=== PATIENT | male | born 1945 | race Caucasian/White ===

== ENCOUNTER → 2018-06-23 | Outpatient (CLI) | payer MEDICARE, OTHER ==
[2018-06-23 16:24] LABS: Basophils % (A) 1 %; Eosinophils # (A) 0.2 k/uL (0-0.7); Eosinophils % (A) 3 %; HCT 46.8 % (39.0-53.0); HGB 15.3 gm/dL (13.0-17.5); Lymphocytes # (A) 1.2 k/uL (1.0-4.8); Lymphocytes % (A) 20 %; MCH 31.8 pg (25.0-35.0); MCHC 32.7 g/dL (31.0-37.0); MCV 97.2 fL (80.0-100.0); Mean Platelet Volume 8.1; Monocytes # (A) 0.4 k/uL (0-1.0); Monocytes % (A) 7 %; Neutrophils % (A) 68 %; Platelet Count 165 k/uL (150-450); RBC 4.81 m/uL (4.30-5.90); RDW 13.2 % (11.5-15.5); WBC 5.9 k/uL (3.8-10.6)
[2018-06-23 16:35] LABS: Potassium 4.7 mmol/L (3.5-5.1)
== END | disposition home or self-care (01) ==
LOC: LABWHC1 15:36
PROVIDERS: ATTEND Urology
DX: Z01.818 Encounter for other preprocedural examination (principal); I10 Essential (primary) hypertension; N40.1 Benign prostatic hyperplasia with lower urinary tract symptoms; E78.00 Pure hypercholesterolemia, unspecified
CPT/HCPCS: 36415; 80048; 85025; 87086

== ENCOUNTER → 2018-06-30 | Day surgery (SDC) | payer MEDICARE, OTHER ==
[2018-06-24 09:29] VITALS: BMI 30.8
--- NOTE | 2018-06-25 08:19 | P.GSHP ---
History of Present Illness H&P Date: 06/25/18 Chief Complaint: Voiding symptoms The patient is a 73-year-old white male with obstructive voiding symptoms despite taking finasteride, alfuzosin, and Toviaz. Cystoscopy has shown complete obstruction due to lateral lobe enlargement with a high median bar. He has elected to undergo a TURP and comes for this reason. - Cardiovascular Cardiovascular: Reports high blood pressure, Denies chest pain - Genitourinary (Female) Genitourinary: Reports nocturia, Reports urgency, Reports urinary frequency Past Medical History Past Medical History: Diabetes Mellitus, GERD/Reflux, Hyperlipidemia, Hypertension, Myocardial Infarction ([place]), Osteoarthritis (OA) Additional Past Medical History / Comment(s): hx. h pylori, type 2 diabetic- diet controlled Last Myocardial Infarction Date:: 2012 History of Any Multi-Drug Resistant Organisms: C-DIFF Date of last positivie culture/infection: 2015 MDRO Source:: stomach Past Surgical History: Coronary Bypass/CABG, Heart Catheterization, Joint Replacement Additional Past Surgical History / Comment(s): triple bypass 2012, right hip replaced, cataracts removed, eye surg. as kid Past Anesthesia/Blood Transfusion Reactions: No Reported Reaction Smoking Status: Never smoker - Past Family History Brother(s) Family Medical History: Cancer Additional Family Medical History / Comment(s): melanoma Medications and Allergies Home Medications Medication Instructions Recorded Confirmed Type Alfuzosin HCl [Uroxatral ER] 10 mg PO DAILY 06/24/18 06/24/18 History Aspirin 81 mg PO DAILY 06/24/18 06/24/18 History Atorvastatin [Lipitor] 80 mg PO DAILY 06/24/18 06/24/18 History Docusate Sodium [Dok] 100 mg PO DAILY 06/24/18 06/24/18 History Fesoterodine Fumarate [Toviaz] 8 mg PO DAILY 06/24/18 06/24/18 History Finasteride [Proscar] 5 mg PO DAILY 06/24/18 06/24/18 History L.acidoph,Paracasei, B.lactis 1 each PO DAILY 06/24/18 06/24/18 History [Probiotic] Meloxicam [Mobic] 15 mg PO DAILY 06/24/18 06/24/18 History Metoprolol Tartrate [Lopressor] 25 mg PO BID 06/24/18 06/24/18 History Multivitamin [Men's Multi-Vitamin] 1 each PO DAILY 06/24/18 06/24/18 History Niacin [Niacin ER] 500 mg PO HS 06/24/18 06/24/18 History Nitroglycerin Sl Tabs [Nitrostat] 0.4 mg SUBLINGUAL Q5M PRN 06/24/18 06/24/18 History Pantoprazole Sodium [Protonix] 40 mg PO DAILY 06/24/18 06/24/18 History Valsartan [Diovan] 100 mg PO DAILY 06/24/18 06/24/18 History Allergies Allergy/AdvReac Type Severity Reaction Status Date / Time No Known Allergies Allergy Verified 06/24/18 08:09 Surgical - Exam - General well developed, well nourished, no distress - Neck no masses, trachea midline - Respiratory normal respiratory effort, clear to auscultation - Cardiovascular Rhythm: regular Abnormal Heart Sounds: no systolic murmur, no diastolic murmur, no rub, no S3 Gallop, no S4 Gallop, no click, no other - Abdomen Abdomen: soft, non tender, no guarding, no rigid, no rebound - Genitourinary normal penis with no external lesions, testicles non-tender - Psychiatric oriented to time, oriented to person, oriented to place, speech is normal, memory intact Assessment and Plan (1) Benign prostatic hyperplasia with lower urinary tract symptoms Status: Acute Code(s): N40.1 - BENIGN PROSTATIC HYPERPLASIA WITH LOWER URINARY TRACT SYMP SNOMED Code(s): 866258299 Plan: PATIENT: [] DATE: [] Cystoscopy, TURP: I discussed the options concerning surgery versus medication. I advised him regarding TURP as opposed to minimally invasive procedures such as Urolift. Potential risks were discussed, including anesthesia, bleeding, infection, retrograde ejaculation, incontinence, erectile dysfunction, and vesical neck contracture. It is anticipated that he will be discharged home following the procedure, though overnight hospitalization may be required.
[~2018-06-30] MED LIST: DEXAMETHASONE SOD PHOSPHATE 10 MG/ML 1 ML VIAL IV ONE; HYDROcodone/APAP 5-325MG 1 EACH TAB PO ONE; HYDROmorphone 0.5 MG/0.5 ML SYRINGE IVP PRN; LACTATED RINGERS 1,000 ML IV SCH; LIDOCAINE 1% 20 ML VIAL (10MG/ML) FOR IV START INTRADERMA ONE; LIDOCAINE 1% INJ 10MG/ML (20 ML MDV) ONE; MIDAZOLAM 2 MG/2 ML VIAL ONE; ONDANSETRON 4 MG/2 ML VIAL IVP ONE; PHENYLEPHRINE-0.9% NACL SYG 1 MG/10 ML SYRINGE ONE; PROPOFOL 10 MG/ML 20 ML VIAL IV ONE; ROCURONIUM BROMIDE 10 MG/ML 10 ML VIAL IV ONE; SUCCINYLCHOLINE CHLORIDE 100 MG/5 ML SYR IV ONE; ceFAZolin IN SWFI 2 GM/20 ML SYRINGE IVP ONE; ePHEDrine SULFATE/0.9% NACL/PF 50 MG/5 ML SYRINGE IV ONE; fentaNYL (PF) 50 MCG/ML 2 ML AMP ONE
[2018-06-30 08:21] LABS: Glucose,Whole Blood 106 mg/dL (75-99)
[2018-06-30 11:17] VITALS: TEMP 97
--- NOTE | 2018-06-30 11:18 | P.OP ---
Date of Procedure: 06/30/18 Preoperative Diagnosis: BPH with Obstruction Postoperative Diagnosis: Same Procedure(s) Performed: Cystoscopy, Bipolar Transurethral Resection of Prostate (TURP) Anesthesia: TWIN Surgeon: Alek Ace Estimated Blood Loss (ml): 100 IV fluids (ml): 700 Pathology: other (prostate chips) Condition: stable Disposition: PACU Indications for Procedure: The patient is a 73-year-old white male with obstructive voiding symptoms despite taking finasteride, alfuzosin, and Toviaz. Cystoscopy has shown complete obstruction due to lateral lobe enlargement with a high median bar. He has elected to undergo a TURP and comes for this reason. Operative Findings: Bilobar BPH Description of Procedure: The patient was taken in the operating room and placed in the dorsolithotomy position. The external genitalia was prepped and draped sterilely. The 25- [place] A[employer] resectoscope sheath was introduced into the bladder. The bladder was inspected. Both ureteral orifices were of normal anatomic location and configuration, and clear urine effluxed from both. No tumors or foreign bodies were seen. Examination of the prostate revealed complete obstruction with a bilobar configuration and a high median bar. Using the bipolar cutting loop, the median lobe was resected, and the vesical neck was incised at the 6:00 position. Llateral lobes were resected down to the surgical capsule. The floor of the prostate was then resected, proximal to the verumontanum. Lastly, any remaining anterior tissue was resected. The remaining apical tissue was then carefully resected. The apical tissue extended beyond the verumontanum, but the resection was not extended beyond the verumontanum. The resection was carried down to the surgical capsule in all 4 quadrants. The prostatic fossa was then carefully examined, and any areas of bleeding were controlled with electrocautery. Excellent hemostasis was attained. The resectoscope was withdrawn into the bulbous urethra. The external urinary sphincter remained intact. The prostatic fossa was open. These were saved and sent for pathologic examination. The resectoscope was removed, and a 20 Bh[place] Campbell catheter was placed. The return was essentially clear. The patient tolerated the procedure well was taken to the recovery room in stable condition.
[2018-06-30 11:46] LABS: Glucose,Whole Blood 141 mg/dL (75-99)
[2018-06-30 12:13] VITALS: RESP 18
[2018-06-30 13:34] VITALS: BP 158/88; PULSE 76
== END | disposition home or self-care (01) ==
LOC: OR 07:44
PROVIDERS: ATTEND Urology
DX: N40.1 Benign prostatic hyperplasia with lower urinary tract symptoms (principal); N13.8 Other obstructive and reflux uropathy; R35.0 Frequency of micturition; R35.1 Nocturia; R39.15 Urgency of urination; E11.9 Type 2 diabetes mellitus without complications; K21.9 Gastro-esophageal reflux disease without esophagitis; I10 Essential (primary) hypertension; M19.90 Unspecified osteoarthritis, unspecified site; I25.10 Atherosclerotic heart disease of native coronary artery without angina pectoris; E78.00 Pure hypercholesterolemia, unspecified; I25.2 Old myocardial infarction; Z95.1 Presence of aortocoronary bypass graft; Z96.641 Presence of right artificial hip joint; Z79.1 Long term (current) use of non-steroidal anti-inflammatories (NSAID); Z79.82 Long term (current) use of aspirin; Z79.899 Other long term (current) drug therapy; Z86.19 Personal history of other infectious and parasitic diseases
CPT/HCPCS: 88305; 52601; J2250; J1100; J2405; J2001; J3010; J2370; J0330; J2704; J0690

== ENCOUNTER → 2018-11-21 | Outpatient (CLI) | payer MEDICARE, OTHER ==
[2018-11-21 15:50] LABS: Basophils # (A) 0.1 k/uL (0-0.2); Basophils % (A) 1 %; Eosinophils # (A) 0.3 k/uL (0-0.7); Eosinophils % (A) 4 %; HCT 50.7 % (39.0-53.0); HGB 16.4 gm/dL (13.0-17.5); Lymphocytes # (A) 1.5 k/uL (1.0-4.8); Lymphocytes % (A) 22 %; MCH 31.9 pg (25.0-35.0); MCHC 32.4 g/dL (31.0-37.0); MCV 98.6 fL (80.0-100.0); Mean Platelet Volume 8.2; Monocytes # (A) 0.5 k/uL (0-1.0); Monocytes % (A) 8 %; Neutrophils # (A) 4.1 k/uL (1.3-7.7); Neutrophils % (A) 61 %; Platelet Count 177 k/uL (150-450); RBC 5.14 m/uL (4.30-5.90); RDW 12.9 % (11.5-15.5); WBC 6.6 k/uL (3.8-10.6)
[2018-11-21 16:02] LABS: ALT 32 U/L (21-72); AST 33 U/L (17-59); Albumin 4.1 g/dL (3.5-5.0); Alkaline Phosphatase 67 U/L (38-126); Anion Gap 7 mmol/L; Blood Urea Nitrogen 24 mg/dL (9-20); Calcium 9.2 mg/dL (8.4-10.2); Carbon Dioxide 34 mmol/L (22-30); Chloride 101 mmol/L (98-107); Glucose 95 mg/dL (74-99); Potassium 4.9 mmol/L (3.5-5.1); Sodium 142 mmol/L (137-145); Total Bilirubin 0.6 mg/dL (0.2-1.3); Total Protein 7.5 g/dL (6.3-8.2)
== END | disposition home or self-care (01) ==
LOC: LABPAT 15:04
PROVIDERS: ATTEND Urology
DX: Z01.812 Encounter for preprocedural laboratory examination (principal); N35.011 Post-traumatic bulbous urethral stricture; Z79.899 Other long term (current) drug therapy
CPT/HCPCS: 80053; 85025

== ENCOUNTER 2018-11-24 06:25 | Day surgery (SDC) | payer MEDICARE, OTHER ==
--- NOTE | 2018-11-22 12:05 | P.GSHP ---
History of Present Illness H&P Date: 11/22/18 Chief Complaint: Weak urinary stream The patient is a 73-year-old white male who underwent a TURP in June 2018. His urinary stream improved and he was able to discontinue taking finasteride and alfuzosin. However, his stream has recently weakened, and cystoscopy shows a bulbous urethral stricture. The stricture could only be dilated to 10-Moroc[place] , and he thus comes for a direct visual internal ureterotomy (DVIU). - Constitutional Constitutional: Denies chills, Denies fever - Genitourinary (Male) Genitourinary: Denies dysuria, Denies hematuria Past Medical History Past Medical History: Diabetes Mellitus, Hyperlipidemia, Hypertension, Myocardial Infarction ([place]), Osteoarthritis (OA), Prostate Disorder Additional Past Medical History / Comment(s): irregular heart rate. diet controlled type II diabetic. balance issues uses cane for mobility Last Myocardial Infarction Date:: 2012 History of Any Multi-Drug Resistant Organisms: None Reported Past Surgical History: Coronary Bypass/CABG, Joint Replacement, Prostate Surgery Additional Past Surgical History / Comment(s): triple bypass 2012, TURP 06/2018 , samuel cataracts, rt hip replacement Past Anesthesia/Blood Transfusion Reactions: No Reported Reaction Smoking Status: Never smoker - Past Family History Mother Family Medical History: Cancer Additional Family Medical History / Comment(s): thyroid cancer Brother(s) Family Medical History: Cancer Additional Family Medical History / Comment(s): skin cancer Medications and Allergies Home Medications Medication Instructions Recorded Confirmed Type Aspirin 81 mg PO DAILY 06/24/18 11/22/18 History Atorvastatin [Lipitor] 80 mg PO HS 06/24/18 11/22/18 History Docusate Sodium [Dok] 100 mg PO DAILY 06/24/18 11/22/18 History Finasteride [Proscar] 5 mg PO DAILY 06/24/18 11/22/18 History L.acidoph,Paracasei, B.lactis 1 each PO DAILY 06/24/18 11/22/18 History [Probiotic] Meloxicam [Mobic] 15 mg PO DAILY 06/24/18 11/22/18 History Metoprolol Tartrate [Lopressor] 25 mg PO BID 06/24/18 11/22/18 History Multivitamin [Men's Multi-Vitamin] 1 each PO DAILY 06/24/18 11/22/18 History Niacin [Niacin ER] 500 mg PO HS 06/24/18 11/22/18 History Nitroglycerin Sl Tabs [Nitrostat] 0.4 mg SUBLINGUAL Q5M PRN 06/24/18 11/22/18 History Pantoprazole Sodium [Protonix] 40 mg PO DAILY 06/24/18 11/22/18 History Valsartan [Diovan] 160 mg PO HS 06/24/18 11/22/18 History Allergy Relief 1 tab PO DAILY 11/22/18 11/22/18 History Ciprofloxacin HCl [Cipro] 500 mg PO Q12HR 11/22/18 11/22/18 History Allergies Allergy/AdvReac Type Severity Reaction Status Date / Time No Known Allergies Allergy Verified 11/22/18 10:40 Surgical - Exam - General well developed, well nourished, no distress - Respiratory normal respiratory effort - Abdomen Abdomen: soft, non tender, no guarding, no rigid, no rebound - Genitourinary normal penis with no external lesions, testicles non-tender - Psychiatric oriented to time, oriented to person, oriented to place, speech is normal, memory intact Assessment and Plan (1) Traumatic bulbous urethral stricture Status: Acute Code(s): N35.011 - POST-TRAUMATIC BULBOUS URETHRAL STRICTURE SNOMED Code(s): 888840646739629 Plan: Cystoscopy, DVIU. The procedure has been reviewed in detail with the patient and his . Potential risks include anesthesia, bleeding, infection, and recurrent stricture.
[~2018-11-24 06:25] MED LIST changes: -DEXAMETHASONE SOD PHOSPHATE 10 MG/ML 1 ML VIAL IV ONE; +GENTAMICIN IN NACL ISO-OSM PMX 80 MG in SALINE 1 100ML.BAG IVPB ONE; -HYDROcodone/APAP 5-325MG 1 EACH TAB PO ONE; -HYDROmorphone 0.5 MG/0.5 ML SYRINGE IVP PRN; -LIDOCAINE 1% 20 ML VIAL (10MG/ML) FOR IV START INTRADERMA ONE; -LIDOCAINE 1% INJ 10MG/ML (20 ML MDV) ONE; -MIDAZOLAM 2 MG/2 ML VIAL ONE; -ONDANSETRON 4 MG/2 ML VIAL IVP ONE; -PHENYLEPHRINE-0.9% NACL SYG 1 MG/10 ML SYRINGE ONE; -PROPOFOL 10 MG/ML 20 ML VIAL IV ONE; -ROCURONIUM BROMIDE 10 MG/ML 10 ML VIAL IV ONE; -SUCCINYLCHOLINE CHLORIDE 100 MG/5 ML SYR IV ONE; -ePHEDrine SULFATE/0.9% NACL/PF 50 MG/5 ML SYRINGE IV ONE; -fentaNYL (PF) 50 MCG/ML 2 ML AMP ONE
[2018-11-24 07:04] VITALS: TEMP 97.1
[2018-11-24] MEDS ORDERED: PHENYLEPHRINE-0.9% NACL SYG 1 MG/10 ML SYRINGE ONE (07:35)
[2018-11-24] MEDS ORDERED: MIDAZOLAM 2 MG/2 ML VIAL ONE (07:35)
[2018-11-24] MEDS ORDERED: fentaNYL (PF) 50 MCG/ML 2 ML AMP ONE (07:35)
[2018-11-24] MEDS ORDERED: LIDOCAINE 1% INJ 10MG/ML (20 ML MDV) ONE (07:35)
[2018-11-24] MEDS ORDERED: PROPOFOL 10 MG/ML 20 ML VIAL IV ONE (07:35)
[2018-11-24] MEDS ORDERED: ePHEDrine SULFATE/0.9% NACL/PF 50 MG/5 ML SYRINGE IV ONE (07:35)
--- NOTE | 2018-11-24 08:29 | P.OP ---
Date of Procedure: 11/24/18 Preoperative Diagnosis: Urethral stricture Postoperative Diagnosis: Urethral stricture, vesical neck contracture Procedure(s) Performed: Cystoscopy, direct visual internal urethrotomy (DVIU), transurethral incision of vesical neck contracture (TUI-VNC) Anesthesia: TWIN Surgeon: Alek Ace Estimated Blood Loss (ml): 5 IV fluids (ml): 300 Pathology: none sent Condition: stable Disposition: PACU Indications for Procedure: The patient is a 73-year-old white male who underwent a TURP in June 2018. His urinary stream improved and he was able to discontinue taking finasteride and alfuzosin. However, his stream has recently weakened, and cystoscopy shows a bulbous urethral stricture. The stricture could only be dilated to 10-Tamazight , and he thus comes for a direct visual internal ureterotomy (DVIU). Operative Findings: Bulbous urethral stricture. Wide caliber vesical neck contracture. Description of Procedure: The patient was taken to the operating room and placed in the dorsolithotomy position, with his legs supported in Wally stirrups. The external genitalia was prepped and draped sterilely. The 0 lens was used to advance the visual urethrotome into the urethra. A stricture was encountered within the bulbous urethra, measuring approximately 10 [place] in caliber. The length of the stricture was approximately 1 cm. Using the half-chavez blade, the stricture was incised at the 12 o'clock position. The incision was carried through the full- thickness of the stricture. It was then possible to advance the visual urethrotome into the bladder. Examination of the prostate revealed a well resected prostatic fossa. There was minimal residual tissue on the right, which was non-obstructing. A wide caliber vesical neck contracture was noted, through which the visual urethrotome could not be advanced. Therefore, this was incised at the 12 o'clock position, allowing passage of the visual urethrotome into the bladder. The bladder was inspected. Both ureteral orifices were of normal anatomic location and configuration, and clear urine effluxed from both. No tumors or foreign bodies were seen. Trabeculation of the bladder was noted. The cystoscope was removed, and an 18-Tamazight Campbell catheter was placed. The return was clear. The patient tolerated the procedure well was taken to the recovery room in stable condition.
[2018-11-24] MEDS ORDERED: IV FLUID CONTINUATION 1,000 ML IV ONE (08:32)
[2018-11-24 08:52] LABS: Glucose,Whole Blood 105 mg/dL (75-99)
[2018-11-24 09:01] VITALS: RESP 16
[2018-11-24 09:13] VITALS: BP 162/91; PULSE 57
== END 2018-11-24 10:20 | disposition home or self-care (01) ==
LOC: OR 06:25
PROVIDERS: ATTEND Urology
DX: N32.0 Bladder-neck obstruction (principal); N35.912 Unspecified bulbous urethral stricture, male; I25.10 Atherosclerotic heart disease of native coronary artery without angina pectoris; I25.2 Old myocardial infarction; I10 Essential (primary) hypertension; E78.5 Hyperlipidemia, unspecified; E11.9 Type 2 diabetes mellitus without complications; M19.90 Unspecified osteoarthritis, unspecified site; Z98.890 Other specified postprocedural states; Z79.2 Long term (current) use of antibiotics; Z79.1 Long term (current) use of non-steroidal anti-inflammatories (NSAID); Z79.82 Long term (current) use of aspirin; Z79.899 Other long term (current) drug therapy; Z95.1 Presence of aortocoronary bypass graft
CPT/HCPCS: 52276; J1580; J2250; J2001; J3010; J2370; J2704; J0690

== ENCOUNTER 2020-01-23 13:55 | Day surgery (SDC) | payer MEDICARE, OTHER ==
[2020-01-22 13:51] VITALS: BMI 29.7
[2020-01-23 14:29] VITALS: BP 83/53; PULSE 56; RESP 18; TEMP 97.5
[2020-01-23 14:33] LABS: Glucose,Whole Blood 95 mg/dL (75-99)
[2020-01-23] MEDS ORDERED: LIDOCAINE 1% INJ 10MG/ML (20 ML MDV) SQ ONE (14:51)
[2020-01-23 16:12] LABS: Basophils # (A) 0.1 k/uL (0-0.2); Basophils % (A) 0 %; Eosinophils # (A) 0.1 k/uL (0-0.7); Eosinophils % (A) 1 %; HCT 46.3 % (39.0-53.0); HGB 15.5 gm/dL (13.0-17.5); Lymphocytes # (A) 0.7 k/uL (1.0-4.8); Lymphocytes % (A) 6 %; MCH 32.8 pg (25.0-35.0); MCHC 33.6 g/dL (31.0-37.0); MCV 97.7 fL (80.0-100.0); Mean Platelet Volume 8.5; Monocytes # (A) 0.4 k/uL (0-1.0); Monocytes % (A) 4 %; Neutrophils # (A) 10.3 k/uL (1.3-7.7); Neutrophils % (A) 88 %; Platelet Count 391 k/uL (150-450); RBC 4.73 m/uL (4.30-5.90); RDW 12.3 % (11.5-15.5); WBC 11.7 k/uL (3.8-10.6)
[2020-01-23 16:19] LABS: Calcium 9.8 mg/dL (8.4-10.2)
[2020-01-23 16:32] LABS: Potassium 6.7 mmol/L (3.5-5.1)
--- NOTE | 2020-01-24 09:23 | IR ---
EXAMINATION TYPE: IR cvc insert >=5 years DATE OF EXAM: 01/23/2020 COMPARISON: NONE CLINICAL HISTORY: Infection Needs long-term intravenous access for antibiotics. PROCEDURE: Hand hygiene obtained with soap and water and alcohol-based hand rub. After informed consent, the skin overlying the left basilic vein was localized with ultrasound and no bernardo to be compressible and patent. An ultrasound image was obtained and submitted on the patient's c painting. The overlying skin was prepped and draped and Lidocaine was used for local anesthesia. A skin sheela was made with a scalpel. Access was gained to the vein under ultrasound guidance with a 21 gau ge needle and a 0.018 inch wire was advanced. Access site was dilated with Peel-Away sheath and cath eter tailored to the appropriate length and advanced such that the distal tip is at the cavoatrial ju nction. Spot image was obtained verifying placement. Catheter was fixed to the skin and a sterile d ressing was placed following hemostasis. Catheter was aspirated and flushed with saline. Patient wa s discharged in stable condition without complication. Maximal barrier technique is utilized. Ultras ound image is documented on the chart. Ultrasound used with sterile technique. Fluoro time and fluoroscopic images submitted to document procedure: 23 intraoperative images documen t the procedure, 0.4 minutes fluoroscopy time IMPRESSION: STATUS POST ULTRASOUND AND FLUOROSCOPIC GUIDED PICC LINE PLACEMENT, READY FOR USE. THIS PROCEDURE WAS PERFORMED BY THE UNDERSIGNED.
== END 2020-01-23 15:37 | disposition home or self-care (01) ==
LOC: CATHCVL 13:55
PROVIDERS: ATTEND Radiology Diagnostic Radiology
DX: T84.54XA Infection and inflammatory reaction due to internal left knee prosthesis, initial encounter (principal); Z96.652 Presence of left artificial knee joint
CPT/HCPCS: 80048; 85025; 36573; J2001

== ENCOUNTER 2020-05-14 11:29 | Day surgery (SDC) | payer MEDICARE, OTHER ==
[2020-05-13 10:30] VITALS: BMI 26.6
[2020-05-14 12:42] VITALS: BP 130/74; RESP 18; TEMP 98.7
[2020-05-14] MEDS ORDERED: LIDOCAINE 1% INJ 10MG/ML (20 ML MDV) ONE (13:11)
[2020-05-14] MEDS ORDERED: LIDOCAINE 1% INJ 10MG/ML (20 ML MDV) SQ ONE (13:27)
--- NOTE | 2020-05-14 16:13 | IR ---
EXAMINATION TYPE: IR cvc insert >=5 years DATE OF EXAM: 05/14/2020 COMPARISON: NONE CLINICAL HISTORY: Infection Needs long-term intravenous access for antibiotics. PROCEDURE: Hand hygiene obtained with soap and water and alcohol-based hand rub. After informed consent, the skin overlying the left basilic vein was localized with ultrasound and no bernardo to be compressible and patent. An ultrasound image was obtained and submitted on the patient's c painting. The overlying skin was prepped and draped and Lidocaine was used for local anesthesia. A skin sheela was made with a scalpel. Access was gained to the vein under ultrasound guidance with a 21 gau ge needle and a 0.018 inch wire was advanced. Access site was dilated with Peel-Away sheath and cath eter tailored to the appropriate length and advanced such that the distal tip is at the cavoatrial ju nction. Spot image was obtained verifying placement. Catheter was fixed to the skin and a sterile d ressing was placed following hemostasis. Catheter was aspirated and flushed with saline. Patient wa s discharged in stable condition without complication. Maximal barrier technique is utilized. Ultras ound image is documented on the chart. Ultrasound used with sterile technique. Fluoro time and fluoroscopic images submitted to document procedure: 13 intraoperative images, 0.1 mi nutes fluoroscopy time IMPRESSION: STATUS POST ULTRASOUND AND FLUOROSCOPIC GUIDED PICC LINE PLACEMENT, READY FOR USE. THIS PROCEDURE WAS PERFORMED BY THE UNDERSIGNED.
== END 2020-05-14 14:10 | disposition home or self-care (01) ==
LOC: CATHCVL 11:29
PROVIDERS: ATTEND Radiology Diagnostic Radiology
DX: T84.54XA Infection and inflammatory reaction due to internal left knee prosthesis, initial encounter (principal); Z98.890 Other specified postprocedural states
CPT/HCPCS: 36573; C1751; C1769; J2001

== ENCOUNTER 2020-07-03 13:50 | Day surgery (SDC) | payer MEDICARE, OTHER ==
--- NOTE | 2020-07-03 16:11 | IR ---
PICC line exchange HISTORY: PICC line pulled out Informed consent undertaken. Patient's indwelling PICC line was prepped and draped. Lidocaine was use d for local anesthesia. Catheter was cut subsequently cannulated with a 0.018 inch wire. Catheter was removed. Peel-away sheath was advanced. Catheter was tailored to length and advanced such that the t ip is at the cavoatrial junction. Catheter was fixed to the skin. Catheter was aspirated and flushed. Hemostasis achieved. No immediate consultation. Patient remained in stable condition. Spot images ob tained verifying placement. 0.3 minutes fluoroscopy time. 118 intraoperative images obtained. IMPRESSION: Status post PICC line exchange. This procedure performed by the undersigned.
== END 2020-07-03 16:00 | disposition home or self-care (01) ==
LOC: CATHCVL 13:50
PROVIDERS: ATTEND Radiology Diagnostic Radiology
DX: T82.524A Displacement of infusion catheter, initial encounter (principal); T84.54XA Infection and inflammatory reaction due to internal left knee prosthesis, initial encounter; M00.9 Pyogenic arthritis, unspecified; I11.9 Hypertensive heart disease without heart failure; E11.9 Type 2 diabetes mellitus without complications; M19.90 Unspecified osteoarthritis, unspecified site; E78.5 Hyperlipidemia, unspecified; Z79.82 Long term (current) use of aspirin; Z79.899 Other long term (current) drug therapy
CPT/HCPCS: 36573; 71045; C1751; C1769

== ENCOUNTER → 2020-07-03 | Outpatient (CLI) | payer MEDICARE, OTHER ==
--- NOTE | 2020-07-03 14:48 | XR ---
EXAMINATION TYPE: XR chest 1V DATE OF EXAM: 07/03/2020 COMPARISON: Chest x-ray April 03, 2013. HISTORY: PICC line placement. TECHNIQUE: Single frontal view of the chest is obtained. FINDINGS: There is some chronic parenchymal change without suspicious new focal air space opacity, p leural effusion, or pneumothorax seen. Overlying sternal wires and mediastinal clips redemonstrated . Low lung volumes redemonstrated. The cardiac silhouette size is now enlarged. Degenerative change bi lateral glenohumeral joints noted. PICC line not identified. IMPRESSION: As above.
== END | disposition home or self-care (01) ==
LOC: RADXRMAIN 14:12
PROVIDERS: ATTEND Internal Medicine Infectious Disease
DX: M19.011 Primary osteoarthritis, right shoulder (principal); M19.012 Primary osteoarthritis, left shoulder
CPT/HCPCS: 71045

== ENCOUNTER 2022-10-27 00:46 | Inpatient (IN) | payer MEDICARE, OTHER ==
[2022-10-27] MEDS ORDERED: SODIUM CHLORIDE 0.9% 1,000 ML IV ONE (01:02)
[2022-10-27] MEDS ORDERED: SODIUM CHLORIDE 0.9% 1,000 ML IV SCH (01:15)
--- NOTE | 2022-10-27 01:44 | US ---
EXAMINATION TYPE: US gallbladder DATE OF EXAM: 10/27/2022 COMPARISON: NONE CLINICAL HISTORY: pain. pain off and on TECHNIQUE: Multiple sonographic images of the right upper quadrant are obtained. Entire exam done intercostal FINDINGS: EXAM MEASUREMENTS: Liver Length: 12.0 cm Gallbladder Wall: 0.18 cm CBD: 0.59 cm Right Kidney: 10.9 x 5.7 x 5.7 cm CORPORATE DEVELOPMENT ANALYST NOTES: Pancreas: Obscured by bowel gas Liver: wnl Gallbladder: Possible gallstones visualized in neck of GB Evidence for sonographic James's sign: No CBD: wnl Right Kidney: Cyst visualized in sup/mid pole measuring 2.1 x 1.8 x 1.7cm IMPRESSION: There is some echogenic bile in the dependent gallbladder that could be sludge and small gallstones. No dilated ducts. No discrete liver mass. No hydronephrosis seen of the right kidney. There is cortic al cyst upper pole. No discrete liver mass.
[2022-10-27 03:10] LABS: Basophils # (A) 0.1 k/uL (0-0.2); Basophils % (A) 0 %; Eosinophils # (A) 0.1 k/uL (0-0.7); Eosinophils % (A) 0 %; HCT 46.3 % (39.0-53.0); HGB 15.6 gm/dL (13.0-17.5); Lymphocytes # (A) 0.5 k/uL (1.0-4.8); Lymphocytes % (A) 3 %; MCH 32.2 pg (25.0-35.0); MCHC 33.6 g/dL (31.0-37.0); MCV 95.8 fL (80.0-100.0); Mean Platelet Volume 9.6; Monocytes # (A) 1.1 k/uL (0-1.0); Monocytes % (A) 7 %; Neutrophils # (A) 15.4 k/uL (1.3-7.7); Neutrophils % (A) 89 %; Platelet Count 154 k/uL (150-450); RBC 4.83 m/uL (4.30-5.90); RDW 13.1 % (11.5-15.5); WBC 17.3 k/uL (3.8-10.6)
[2022-10-27 03:26] LABS: Albumin 3.8 g/dL (3.5-5.0); Calcium 8.8 mg/dL (8.4-10.2); Total Bilirubin 1.1 mg/dL (0.2-1.3); Total Protein 6.7 g/dL (6.3-8.2)
[2022-10-27 03:27] LABS: Potassium 5.9 mmol/L (3.5-5.1)
--- NOTE | 2022-10-27 03:41 | ED ---
Abdominal Pain HPI - General Chief Complaint: Abdominal Pain Stated Complaint: Abdominal Pain Time Seen by Provider: 10/27/22 00:48 Source: patient, EMS, RN notes reviewed Mode of arrival: EMS Limitations: no limitations - History of Present Illness Initial Comments: This a 77-year-old male presents emergency Department from [facility] for evaluation of right quadrant abdominal pain. Patient states started earlier today as needed nausea and vomiting states pain radiated rate down his back. Patient's found to have significant leukocytosis, lactic acidosis for patient has been persistently tachycardic denies any complaints of chest pain. Outside hospital did not have access to ultrasound and sent here for FURTHER WORKUP AND EVALUATION. - Related Data Home Medications Medication Instructions Recorded Confirmed Aspirin 81 mg PO DAILY 06/24/18 05/13/20 Atorvastatin [Lipitor] 80 mg PO DAILY 06/24/18 05/13/20 Docusate Sodium [Dok] 100 mg PO DAILY 06/24/18 05/13/20 Meloxicam [Mobic] 15 mg PO DAILY 06/24/18 05/13/20 Metoprolol Tartrate [Lopressor] 25 mg PO DAILY 06/24/18 05/13/20 Niacin [Niacin ER] 500 mg PO DAILY 06/24/18 05/13/20 Nitroglycerin Sl Tabs [Nitrostat] 0.4 mg SUBLINGUAL Q5M PRN 06/24/18 05/13/20 Pantoprazole Sodium [Protonix] 40 mg PO DAILY 06/24/18 05/13/20 Valsartan [Diovan] 80 mg PO DAILY 06/24/18 05/13/20 Fluticasone Nasal [place] [Flonase 1 spray EA NOSTRIL DAILY 01/22/20 05/13/20 Nasal [place]] Colon Health 1 dose PO DAILY 05/13/20 05/13/20 Multivitamins, Thera [Multivitamin 1 tab PO DAILY 05/13/20 05/13/20 (formulary)] Sulfamethoxazole(Unknown Dose) 1 tab PO BID 05/13/20 05/13/20 Allergies Allergy/AdvReac Type Severity Reaction Status Date / Time No Known Allergies Allergy Verified 05/13/20 10:32 Review of Systems ROS Statement: Those systems with pertinent positive or pertinent negative responses have been documented in the HPI. ROS Other: All systems not noted in ROS Statement are negative. Past Medical History Past Medical History: Diabetes Mellitus, GERD/Reflux, Hyperlipidemia, H ypertension, Myocardial Infarction ([place]), Osteoarthritis (OA), Prostate Disorder, Skin Disorder Additional Past Medical History / Comment(s): DIET CONTROLLLED DIABETES, mild Ro sacea, enlarged prostate. 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 Past Anesthesia/Blood Transfusion Reactions: No Reported Reaction Past Psychological History: No Psychological Hx Reported Smoking Status: Never smoker Past Alcohol Use History: Rare Past Drug Use History: None Reported - Past Family History Father Family Medical History: Myocardial Infarction ([place]) Additional Family Medical History / Comment(s): AT AGE 48 FROM MASSIVE [place]. Mother Family Medical History: Cancer, Congestive Heart Failure (CHF) Additional Family Medical History / Comment(s): Thyroid cancer. Brother(s) Family Medical History: Cancer Additional Family Medical History / Comment(s): Skin cancer. (Melanoma with mets) General Exam Limitations: no limitations General appearance: alert, in no apparent distress Head exam: Present: atraumatic, normocephalic, normal inspection Eye exam: Present: normal appearance, PERRL, EOMI. Absent: scleral icterus, conjunctival injection, periorbital swelling ENT exam: Present: normal exam, normal oropharynx, mucous membranes moist, TM's normal bilaterally Neck exam: Present: normal inspection, full ROM. Absent: tenderness, meningismus, lymphadenopathy Respiratory exam: Present: normal lung sounds bilaterally. Absent: respiratory distress, wheezes, rales, rhonchi, stridor Cardiovascular Exam: Present: normal rhythm, tachycardia, normal heart sounds. Absent: systolic murmur, diastolic murmur, rubs, gallop, clicks GI/Abdominal exam: Present: soft, tenderness, normal bowel sounds. Absent: distended, guarding, rebound, rigid Back exam: Absent: CVA tenderness (R), CVA tenderness (L) Course Vital Signs 10/27/22 10/27/22 10/27/22 00:53 02:00 03:00 Temperature 98.0 F Pulse Rate 128 H 121 H 120 H Respiratory 18 16 18 Rate Blood Pressure 128/99 203/97 169/106 O2 Sat by Pulse 94 L 94 L 95 Oximetry Medical Decision Making - Medical Decision Making Was pt. sent in by a medical professional or institution (, [facility], [facility], urgent care, hospital, or halfway...) When possible be specific @ -[facility] Did you speak to anyone other than the patient for history (EMS, parent, family, police, friend...)? What history was obtained from this source @ -EMS/ [facility] Did you review nursing and triage notes (agree or disagree)? Why? @ -I reviewed and agree with nursing and triage notes Were old charts reviewed (outside hosp., previous admission, EMS record, old EKG, old radiological studies, urgent care reports/EKG's, halfway records)? Report findings @ -No old charts were reviewed Differential Diagnosis (chest pain, altered mental status, abdominal pain women, abdominal pain men, vaginal bleeding, weakness, fever, dyspnea, syncope, headache, dizziness, GI bleed, back pain, seizure, CVA, palpatations, mental he alth)? @ -[Cholelithiasis, cholecystitis, abscess, colitis, this is is not all- inclusive EKG interpreted by me (3pts min.). @ -None X-rays interpreted by me (1pt min.). @ -None done CT interpreted by me (1pt min.). @ -None done U/S interpreted by me (1pt. min.). @ -Ultrasound shows gallbladder sludge, possible stones stone in neck What testing was considered but not performed or refused? (CT, X-rays, U/S, labs)? Why? @ -None What meds were considered but not given or refused? Why? @ -None Did you discuss the management of the patient with other professionals (professionals i.e. NISH Madrigal, [facility], lab, RT, psych nurse, nursing home social worker, intellectual property lawyer, teacher, third officer, dependency case manager)? Give summary @ -[Dr. Zepedaania surgery, Dr. Orourke Was smoking cessation discussed for >3mins.? @ -No Was critical care preformed (if so, how long)? @ -No Were there social determinants of health that impacted care today? How? (Homelessness, low income, unemployed, alcoholism, drug addiction, transportation, low edu. Level, literacy, decrease access to med. care, alf, rehab)? @ -No Was there de-escalation of care discussed even if they declined (Discuss DNR or withdrawal of care, Hospice)? DNR status @ -No What co-morbidities impacted this encounter? (DM, HTN, Smoking, COPD, CAD, Cancer, CVA, ARF, Chemo, Hep., AIDS, mental health diagnosis, sleep apnea, morbid obesity)? @ -see PMH Was patient admitted / discharged? Hospital course, mention meds given and route, prescriptions, significant lab abnormalities, going to OR and other pertinent info. @ -Admitted -patient be admitted to medicine as concern for possible sepsis patient has had a persistent tachycardia, leukocytosis, lactic acidosis. Patient was given Rocephin and Flagyl prior arrival blood cultures were drawn, case discussed with hospitalist and surgeon. Undiagnosed new problem with uncertain prognosis? @ -No Drug Therapy requiring intensive monitoring for toxicity (Heparin, Nitro, Insulin, Cardizem)? @ -No Were any procedures done? @ -No Diagnosis/symptom? @ -Acute cholelithiasis with cholecystitis Acute, or Chronic, or Acute on Chronic? @ -Acute Uncomplicated (without systemic symptoms) or Complicated (systemic symptoms)? @ -Complicated Side effects of treatment? @ -No Exacerbation, Progression, or Severe Exacerbation? @ -No Poses a threat to life or bodily function? How? (Chest pain, [place], [place], pneumonia, PE, COPD, DKA, ARF, appy, cholecystitis, CVA, Diverticulitis, Homicidal, Suicidal, threat to staff... and all critical care pts) @ -No Diagnosis/symptom? @ -Sepsis Acute, or Chronic, or Acute on Chronic? @ -Acute Uncomplicated (without systemic symptoms) or Complicated (systemic symptoms)? @ -Complicated Side effects of treatment? @ -none Exacerbation, Progression, or Severe Exacerbation @ -no Poses a threat to life or bodily function? @ -yes - Lab Data Result diagrams: 10/27/22 02:45 10/27/22 02:45 Lab Results 10/27/22 10/27/22 10/27/22 Range/Units 02:45 02:45 02:45 WBC 17.3 H (3.8-10.6) k/uL RBC 4.83 (4.30-5.90) m/uL Hgb 15.6 (13.0-17.5) gm/dL Hct 46.3 (39.0-53.0) % MCV 95.8 (80.0-100.0) fL MCH 32.2 (25.0-35.0) pg MCHC 33.6 (31.0-37.0) g/dL RDW 13.1 (11.5-15.5) % Plt Count 154 (150-450) k/uL MPV 9.6 Neutrophils % 89 % Lymphocytes % 3 % Monocytes % 7 % Eosinophils % 0 % Basophils % 0 % Neutrophils # 15.4 H (1.3-7.7) k/uL Lymphocytes # 0.5 L (1.0-4.8) k/uL Monocytes # 1.1 H (0-1.0) k/uL Eosinophils # 0.1 (0-0.7) k/uL Basophils # 0.1 (0-0.2) k/uL Sodium 133 L (137-145) mmol/L Potassium 5.9 H (3.5-5.1) mmol/L Chloride 102 (98-107) mmol/L Carbon Dioxide 26 (22-30) mmol/L Anion Gap 5 mmol/L BUN 54 H (9-20) mg/dL Creatinine 1.76 H (0.66-1.25) mg/dL Est GFR (CKD-EPI)AfAm 43 (>60 ml/min/1.73 sqM) Est GFR (CKD-EPI)NonAf 37 (>60 ml/min/1.73 sqM) Glucose 132 H (74-99) mg/dL Plasma Lactic Acid [place] 1.4 (0.7-2.0) mmol/L Calcium 8.8 (8.4-10.2) mg/dL Total Bilirubin 1.1 (0.2-1.3) mg/dL AST 60 H (17-59) U/L ALT 28 (4-49) U/L Alkaline Phosphatase 71 (38-126) U/L Total Protein 6.7 (6.3-8.2) g/dL Albumin 3.8 (3.5-5.0) g/dL Disposition Clinical Impression: Sepsis, Cholelithiasis with cholecystitis Disposition: ADMITTED IP TO THIS HOSP Condition: Poor Referrals: Kev Hammond MD [Primary Care Provider] - 1-2 days Time of Disposition: 04:01
[2022-10-27] MEDS ORDERED: ONDANSETRON 4 MG/2 ML VIAL IVP PRN ×2 (04:02→16:27)
[2022-10-27] MEDS ORDERED: NALOXONE 0.4 MG/ML 1 ML VIAL IV PRN ×2 (04:02→16:27)
[2022-10-27] MEDS ORDERED: ACETAMINOPHEN TAB 325 MG TAB PO PRN (04:02)
--- NOTE | 2022-10-27 05:04 | P.HPIM ---
History of Present Illness H&P Date: 10/27/22 Chief Complaint: abd pain 77 year old male with CAD s/p CABG , DM patient is a transfer from [facility] , he presented there due to worsening abd pain RUQ 7/10 in severity , sharp in nature , associated with nausea but no vomiting, denies any GI bleeding , reports occasional diarrhea as he had the pain for about 1-2 months . with abd bloating , and discomfort after meals. he denies any chest pain or trouble breathing, denies any fever, chills. denies any cough , or URI symptoms at [facility] , CTA of the chest showed no dissection or PE. EKG showed RBBB with tachycardia blood work showed leukocytosis , hyperkalemia , elevated trops . patient met sepsis critertia and was started on antibiotics gall bladder US showed multiple gall stone at the neck of the gall bladder ,. Review of Systems Pertinent positives as noted in HPI. All other systems were reviewed and are negative Past Medical History Past Medical History: Diabetes Mellitus, GERD/Reflux, Hyperlipidemia, Hypertension, Myocardial Infarction ([place]), Osteoarthritis (OA), Prostate Disorder, Skin Disorder Additional Past Medical History / Comment(s): DIET CONTROLLLED DIABETES, mild R osacea, enlarged prostate. 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 Past Anesthesia/Blood Transfusion Reactions: No Reported Reaction Past Psychological History: No Psychological Hx Reported Smoking Status: Never smoker Past Alcohol Use History: Rare Past Drug Use History: None Reported - Past Family History Father Family Medical History: Myocardial Infarction ([place]) Additional Family Medical History / Comment(s): AT AGE 48 FROM MASSIVE [place]. Mother Family Medical History: Cancer, Congestive Heart Failure (CHF) Additional Family Medical History / Comment(s): Thyroid cancer. Brother(s) Family Medical History: Cancer Additional Family Medical History / Comment(s): Skin cancer. (Melanoma with mets) Medications and Allergies Home Medications Medication Instructions Recorded Confirmed Type Aspirin 81 mg PO DAILY 06/24/18 05/13/20 History Atorvastatin [Lipitor] 80 mg PO DAILY 06/24/18 05/13/20 History Docusate Sodium [Dok] 100 mg PO DAILY 06/24/18 05/13/20 History Meloxicam [Mobic] 15 mg PO DAILY 06/24/18 05/13/20 History Metoprolol Tartrate [Lopressor] 25 mg PO DAILY 06/24/18 05/13/20 History Niacin [Niacin ER] 500 mg PO DAILY 06/24/18 05/13/20 History Nitroglycerin Sl Tabs [Nitrostat] 0.4 mg SUBLINGUAL Q5M PRN 06/24/18 05/13/20 History Pantoprazole Sodium [Protonix] 40 mg PO DAILY 06/24/18 05/13/20 History Valsartan [Diovan] 80 mg PO DAILY 06/24/18 05/13/20 History Fluticasone Nasal [place] [Flonase 1 spray EA NOSTRIL DAILY 01/22/20 05/13/20 History Nasal [place]] Colon Health 1 dose PO DAILY 05/13/20 05/13/20 History Multivitamins, Thera [Multivitamin 1 tab PO DAILY 05/13/20 05/13/20 History (formulary)] Sulfamethoxazole(Unknown Dose) 1 tab PO BID 05/13/20 05/13/20 History Allergies Allergy/AdvReac Type Severity Reaction Status Date / Time No Known Allergies Allergy Verified 05/13/20 10:32 Physical Exam Vitals: Vital Signs Temp Pulse Resp BP Pulse Ox 10/27/22 03:00 120 H 18 169/106 95 10/27/22 02:00 121 H 16 203/97 94 L 10/27/22 00:53 98.0 F 128 H 18 128/99 94 L Intake and Output 10/26/22 10/26/22 10/27/22 14:59 22:59 06:59 Other: Weight 81.647 kg Constitutional: No acute distress, conversant, pleasant Eyes: Anicteric sclerae, moist conjunctiva, Pupils equal round reactive to light ENMT: NC/AT Oropharynx clear, no erythema, or exudates Neck: Supple, no masses, or JVD No carotid bruits No thyromegaly Lungs: Clear to auscultation Clear to percussion Normal respiratory effort, no accessory muscle use Cardiovascular: Heart regular in rate and rhythm, No murmurs, gallops, or rubs No peripheral edema Abdominal: Soft tenderness to palpation of the RUQ with positive doron sign, voluntary guarding, no rebound or rigidity Abdomen moving with respiration Normoactive bowel sounds No hepatomegaly, No splenomegaly No palpable mass No abdominal wall hernia noted Skin: chronic skin changes bilateral legs with erythema no tenderness no warmth to the touch Extremities: No digital cyanosis No clubbing Pedal pulses intact and symmetrical Radial pulses intact and symmetrical No calf tenderness Psychiatric: Alert and oriented to person, place and time Neuro Muscles Strength 5/5 in all 4 extremities Sensation to light touch grossly present throughout Cranial nerves II-XII grossly intact Lymphatics: no palpable cervical or supraclavicular lymph nodes Results CBC & Chem 7: 10/27/22 02:45 10/27/22 02:45 Labs: Abnormal Lab Results - Last 24 Hours (Table) 10/27/22 10/27/22 10/27/22 Range/Units 02:45 02:45 02:45 WBC 17.3 H (3.8-10.6) k/uL Neutrophils # 15.4 H (1.3-7.7) k/uL Lymphocytes # 0.5 L (1.0-4.8) k/uL Monocytes # 1.1 H (0-1.0) k/uL Sodium 133 L (137-145) mmol/L Potassium 5.9 H (3.5-5.1) mmol/L BUN 54 H (9-20) mg/dL Creatinine 1.76 H (0.66-1.25) mg/dL Glucose 132 H (74-99) mg/dL AST 60 H (17-59) U/L Troponin I 0.245 H* (0.000-0.034) ng/mL Assessment and Plan Assessment: sepsis , secondary to acute cholecystitis follow up cultures gall bladder US showed multiple gall stones in the neck of the gall bladder empiric antibiotics with rocephine and flagyl IVF hydration with normal saline pain control with opiods NPO elevated trops , possibly secondary to sepsis cardiology consult monitor vital signs patient monitor CTA done at the other facility showed no PE or aortic dissection DM insulin sliding scale full code DVT PPX heparin sc tid
[2022-10-27] MEDS ORDERED: DEXTROSE 50% SYRINGE 50 ML IVP STA ×2 (05:05→08:32)
[2022-10-27] MEDS ORDERED: INSULIN REGULAR 100 UNIT/ML VIAL (IV) IV ONE (05:05)
[2022-10-27 05:40] LABS: Glucose,Whole Blood 109 mg/dL (70-110)
[2022-10-27] MEDS: metroNIDAZOLE-NS PMX 500 MG in SALINE 1 100ML.BAG IVPB SCH ×3 (05:59→22:00)
[2022-10-27 08:25] LABS: Glucose,Whole Blood 64 mg/dL (70-110)
[2022-10-27] MEDS: INSULIN ASPART (NovoLOG) 100 UNIT/ML VIAL SQ SCH ×4 (08:30→20:32)
[2022-10-27] MEDS ORDERED: DEXTROSE 50% SYRINGE 50 ML IVP PRN ×2 (08:32)
[2022-10-27] MEDS: METOPROLOL TARTRATE 25 MG TAB PO SCH ×2 (08:39→09:00)
[2022-10-27] MEDS: HEPARIN SODIUM,PORCINE/PF 5,000 UNIT/0.5 ML SYRINGE SQ SCH ×3 (08:39→23:56)
[2022-10-27 08:55] LABS: Glucose,Whole Blood 109 mg/dL (70-110)
[2022-10-27] MEDS: DEXTROSE 5%-0.45% NACL 1,000 ML IV SCH ×3 (09:21→23:50)
[2022-10-27 09:48] LABS: ALT 30 U/L (4-49); AST 59 U/L (17-59); African American GFR (CKD) 49 (>60 ml/min/1.73 sqM); Albumin 3.7 g/dL (3.5-5.0); Alkaline Phosphatase 90 U/L (38-126); Anion Gap 7 mmol/L; Blood Urea Nitrogen 50 mg/dL (9-20); Calcium 8.7 mg/dL (8.4-10.2); Carbon Dioxide 27 mmol/L (22-30); Chloride 101 mmol/L (98-107); Glucose 181 mg/dL (74-99); HCT 47.4 % (39.0-53.0); HGB 16.2 gm/dL (13.0-17.5); MCH 33.3 pg (25.0-35.0); MCHC 34.2 g/dL (31.0-37.0); MCV 97.2 fL (80.0-100.0); Mean Platelet Volume 9.7; Non-African American GFR(CKD) 42 (>60 ml/min/1.73 sqM); Platelet Count 157 k/uL (150-450); Potassium 4.7 mmol/L (3.5-5.1); RBC 4.88 m/uL (4.30-5.90); RDW 13.3 % (11.5-15.5); Sodium 135 mmol/L (137-145); Total Protein 6.7 g/dL (6.3-8.2); WBC 15.6 k/uL (3.8-10.6)
--- NOTE | 2022-10-27 10:19 | P.GSCN ---
History of Present Illness Consult date: 10/27/22 History of present illness: CHIEF COMPLAINT: Abdominal pain HISTORY OF PRESENT ILLNESS: This is a 77-year-old male who presented with right upper quadrant abdominal pain that radiates to his back with nausea and vomiting for the past week. He was transferred from [facility] to be seen by surgeon and to have further imaging done. Gallbladder ultrasound had shown evidence of gallstones and sludge. Patient did have elevated troponins. He was seen evaluated by cardiology. He has been tachycardic. Medicine service has ordered his beta fanny. Patient denies any prior abdominal surgical history. He does have a prior history of [place] and CABG. Patient did have evidence of hyperkalemia and mild acute kidney injury. Medicine service is correcting the potassium. Patient is receiving IV fluids. Also had hypoglycemia. Medicine service has corrected. Surgical service consulted in regards to cholecystitis. Patient seen and examined with Dr. Mondragon PAST MEDICAL HISTORY: Diabetes Mellitus, GERD/Reflux, Hyperlipidemia, Hypertension, Myocardial Infar ction ([place]), Osteoarthritis ([place]), Prostate Disorder, Skin Disorder PAST SURGICAL HISTORY: See below MEDICATIONS: See below ALLERGIES: See below SOCIAL HISTORY: No illicit drug use. REVIEW OF SYSTEMS: CONSTITUTIONAL: Denies fever or chills. HEENT: Denies blurred vision, vision changes, or eye pain. Denies hemoptysis CARDIOVASCULAR: Denies chest pain or pressure. RESPIRATORY: No shortness of breath. GASTROINTESTINAL: See HPI for pertinent findings HEMATOLOGIC: Denies bleeding disorders. GENITOURINARY: Denies any blood in urine or increased urinary frequency. SKIN: Denies pruitis. Denies rash. PHYSICAL EXAM: VITAL SIGNS: Reviewed GENERAL: Well-developed in no acute distress. HEENT: No sclera icterus. Extraocular movements grossly intact. Moist buccal mucosa. Head is atraumatic, normocephalic. No nasal drainage. ABDOMEN: Soft. Nondistended. Right upper quadrant pain NEUROLOGIC: Alert and oriented. Cranial nerves II through XII grossly intact. LABORATORY DATA: WBC 15.6 hemoglobin 16.2 platelets 157 sodium 135 potassium 5.9 down to 4.7 creatinine is 1.59 Troponin 0.245 0.234 0.236 Lactic acid 1.4 Total bili 1.0 AST 59 ALT 30 alk phos 70 IMAGING: Gallbladder ultrasound some echogenic bile in the dependent goal her that could be sludge and small gallstones. No dilated ducts. No discrete liver mass. No hydronephrosis seen on the right kidney. There is Cortical cyst upper pole. No discrete liver mass. ASSESSMENT: 1. Acute cholecystitis with sepsis. Ultrasound showing evidence of sludge and small gallstones 2. Elevated troponins evaluated by cardiology 3. Hyperkalemia corrected by medicine service 4. Acute kidney injury 5. Tachycardic 6. Hypoglycemic corrected by medicine service PLAN: -Patient scheduled for laparoscopic cholecystectomy today with Dr. mondragon -Patient has received cardiac clearance for surgery -Patient nothing by mouth -Continue antibiotics -Continue IV fluids -Continue supportive care Thank you for this consultation Physician Tip Finisher note has been reviewed by physician. Signing provider agrees with the documented findings, assessment, and plan of care. Past Medical History Past Medical History: Diabetes Mellitus, GERD/Reflux, Hyperlipidemia, Hypertension, Myocardial Infarction ([place]), Osteoarthritis ([place]), Prostate Disorder, Skin Disorder Additional Past Medical History / Comment(s): DIET CONTROLLLED DIABETES, mild Rosacea, enlarged prostate. 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 Past Anesthesia/Blood Transfusion Reactions: No Reported Reaction Past Psychological History: No Psychological Hx Reported Smoking Status: Never smoker Past Alcohol Use History: Rare Past Drug Use History: None Reported - Past Family History Father Family Medical History: Myocardial Infarction ([place]) Additional Family Medical History / Comment(s): AT AGE 48 FROM MASSIVE [place]. Mother Family Medical History: Cancer, Congestive Heart Failure (CHF) Additional Family Medical History / Comment(s): Thyroid cancer. Brother(s) Family Medical History: Cancer Additional Family Medical History / Comment(s): Skin cancer. (Melanoma with mets) Medications and Allergies Home Medications Medication Instructions Recorded Confirmed Type Aspirin 81 mg PO DAILY 06/24/18 05/13/20 History Atorvastatin [Lipitor] 80 mg PO DAILY 06/24/18 05/13/20 History Docusate Sodium [Dok] 100 mg PO DAILY 06/24/18 05/13/20 History Meloxicam [Mobic] 15 mg PO DAILY 06/24/18 05/13/20 History Metoprolol Tartrate [Lopressor] 25 mg PO DAILY 06/24/18 05/13/20 History Niacin [Niacin ER] 500 mg PO DAILY 06/24/18 05/13/20 History Nitroglycerin Sl Tabs [Nitrostat] 0.4 mg SUBLINGUAL Q5M PRN 06/24/18 05/13/20 History Pantoprazole Sodium [Protonix] 40 mg PO DAILY 06/24/18 05/13/20 History Valsartan [Diovan] 80 mg PO DAILY 06/24/18 05/13/20 History Fluticasone Nasal [place] [Flonase 1 spray EA NOSTRIL DAILY 01/22/20 05/13/20 History Nasal [place]] Colon Health 1 dose PO DAILY 05/13/20 05/13/20 History Multivitamins, Thera [Multivitamin 1 tab PO DAILY 05/13/20 05/13/20 History (formulary)] Sulfamethoxazole(Unknown Dose) 1 tab PO BID 05/13/20 05/13/20 History Allergies Allergy/AdvReac Type Severity Reaction Status Date / Time No Known Allergies Allergy Verified 05/13/20 10:32 Surgical - Exam Vital Signs Temp Pulse Resp BP Pulse Ox 98.0 F 128 H 18 128/99 94 L 10/27/22 00:53 10/27/22 00:53 10/27/22 00:53 10/27/22 00:53 10/27/22 00:53 Results - Labs 10/27/22 09:13 10/27/22 09:13 Abnormal Lab Results - Last 24 Hours (Table) 10/27/22 10/27/22 10/27/22 Range/Units 02:45 02:45 02:45 WBC 17.3 H (3.8-10.6) k/uL Neutrophils # 15.4 H (1.3-7.7) k/uL Lymphocytes # 0.5 L (1.0-4.8) k/uL Monocytes # 1.1 H (0-1.0) k/uL Sodium 133 L (137-145) mmol/L Potassium 5.9 H (3.5-5.1) mmol/L BUN 54 H (9-20) mg/dL Creatinine 1.76 H (0.66-1.25) mg/dL Glucose 132 H (74-99) mg/dL POC Glucose (mg/dL) (70-110) mg/dL AST 60 H (17-59) U/L Troponin I 0.245 H* (0.000-0.034) ng/mL 10/27/22 10/27/22 10/27/22 Range/Units 05:20 08:23 09:13 WBC (3.8-10.6) k/uL Neutrophils # (1.3-7.7) k/uL Lymphocytes # (1.0-4.8) k/uL Monocytes # (0-1.0) k/uL Sodium 135 L (137-145) mmol/L Potassium (3.5-5.1) mmol/L BUN 50 H (9-20) mg/dL Creatinine 1.59 H (0.66-1.25) mg/dL Glucose 181 H (74-99) mg/dL POC Glucose (mg/dL) 64 L (70-110) mg/dL AST (17-59) U/L Troponin I 0.234 H* (0.000-0.034) ng/mL 10/27/22 Range/Units 09:13 WBC 15.6 H (3.8-10.6) k/uL Neutrophils # (1.3-7.7) k/uL Lymphocytes # (1.0-4.8) k/uL Monocytes # (0-1.0) k/uL Sodium (137-145) mmol/L Potassium (3.5-5.1) mmol/L BUN (9-20) mg/dL Creatinine (0.66-1.25) mg/dL Glucose (74-99) mg/dL POC Glucose (mg/dL) (70-110) mg/dL AST (17-59) U/L Troponin I (0.000-0.034) ng/mL Diabetes panel 10/27/22 10/27/22 Range/Units 02:45 09:13 Sodium 133 L 135 L (137-145) mmol/L Potassium 5.9 H 4.7 (3.5-5.1) mmol/L Chloride 102 101 (98-107) mmol/L Carbon Dioxide 26 27 (22-30) mmol/L BUN 54 H 50 H (9-20) mg/dL Creatinine 1.76 H 1.59 H (0.66-1.25) mg/dL Glucose 132 H 181 H (74-99) mg/dL Calcium 8.8 8.7 (8.4-10.2) mg/dL AST 60 H 59 (17-59) U/L ALT 28 30 (4-49) U/L Alkaline Phosphatase 71 90 (38-126) U/L Total Protein 6.7 6.7 (6.3-8.2) g/dL Albumin 3.8 3.7 (3.5-5.0) g/dL Calcium panel 10/27/22 10/27/22 Range/Units 02:45 09:13 Calcium 8.8 8.7 (8.4-10.2) mg/dL Albumin 3.8 3.7 (3.5-5.0) g/dL Pituitary panel 10/27/22 10/27/22 Range/Units 02:45 09:13 Sodium 133 L 135 L (137-145) mmol/L Potassium 5.9 H 4.7 (3.5-5.1) mmol/L Chloride 102 101 (98-107) mmol/L Carbon Dioxide 26 27 (22-30) mmol/L BUN 54 H 50 H (9-20) mg/dL Creatinine 1.76 H 1.59 H (0.66-1.25) mg/dL Glucose 132 H 181 H (74-99) mg/dL Calcium 8.8 8.7 (8.4-10.2) mg/dL Adrenal panel 10/27/22 10/27/22 Range/Units 02:45 09:13 Sodium 133 L 135 L (137-145) mmol/L Potassium 5.9 H 4.7 (3.5-5.1) mmol/L Chloride 102 101 (98-107) mmol/L Carbon Dioxide 26 27 (22-30) mmol/L BUN 54 H 50 H (9-20) mg/dL Creatinine 1.76 H 1.59 H (0.66-1.25) mg/dL Glucose 132 H 181 H (74-99) mg/dL Calcium 8.8 8.7 (8.4-10.2) mg/dL Total Bilirubin 1.1 1.0 (0.2-1.3) mg/dL AST 60 H 59 (17-59) U/L ALT 28 30 (4-49) U/L Alkaline Phosphatase 71 90 (38-126) U/L Total Protein 6.7 6.7 (6.3-8.2) g/dL Albumin 3.8 3.7 (3.5-5.0) g/dL
[2022-10-27 10:24] LABS: Glucose,Whole Blood 161 mg/dL (70-110)
--- NOTE | 2022-10-27 10:34 | P.PN ---
Subjective Progress Note Date: 10/27/22 Patient is a 77-year-old male for history of coronary artery disease status post CABG, diabetes mellitus type 2 diet controlled, hypertension, dyslipidemia, and BPH who was transferred from [facility] due to concerns for acute cholecystitis with sepsis. On arrival to the ER he was tachycardic with a pulse of 128. Laboratory analysis revealed white blood cell count 17.3, sodium 133, potassium 5.9, BUN 54, creatinine 1.76, AST 60, total bilirubin was normal. Troponin was mildly elevated at 0.245. He was started on Rocephin and Flagyl. Arrangements are made for admission. Cardiology and surgery were consulted. He was started on IV fluids and labs are repeated the following morning which showed normalization of his potassium at 4.7. Gallbladder ultrasound- possible slude vs small gallstones, no dilated ducts. Patient seen and examined at bedside. He complains of feeling as though his mouth is really dry as was feeling slightly woozy and lightheaded. He denies any chest pain or shortness of breath. He continues to have belly pain and feel nauseated. General: ill appearing, mild distress, appears at stated age Derm: warm, + diaphoretic Head: atraumatic, normocephalic, symmetric Eyes: EOMI, no lid lag, anicteric sclera Mouth: no lip lesion, mucus membranes moist Cardiovascular: S1S2 irreg tachy, no murmur, positive posterior tibial pulse bilateral, Lungs: Decreased bs bilateral, no rhonchi, no rales , no accessory muscle use Abdominal: soft, +tender to palpation diffusely, no guarding, no appreciable organomegaly Ext: no gross muscle atrophy, no edema, no contractures Neuro: CN II-XI grossly intact, no focal neuro deficits Psych: Alert, oriented, appropriate affect Assessment/plan: Acute cholecystitis with sepsis - plan is for OR today - IVF - rocephin and flagyl - NPO SHAAN vs CKD -Creatinine stable from yesterday -Hyperkalemia resolved -Continue fluids -Avoid nephrotoxic agents -Medication still need to be verified, ARB and pelvic are listed on home meds and these will continue to be held. Type II NSTEMI due to sepsis - await cardio recs -Continue with Lopressor, had aspirin once postop -Check lipid profile DM II with hypoglycemia - Change IV fluids to D5 half-normal -Accu-Cheks every 4 hours while nothing by mouth and-follow blood sugars Hyperkalemia, resolved Chronic: GERD, HLD, HTN, CAD with prior CABG, BPH DVT prophylaxis: Heparin Discussed with: Dr. Ria correa Anticipated discharge: Pending clinical course Anticipated discharge place: Pending clinical course A total of 35 minutes was spent on the care of this complex patient more than 50% of the time was spent in counseling and care coordination. Active Medications Acetaminophen (Acetaminophen Tab 325 Mg Tab) 650 mg PO Q6HR PRN PRN Reason: Mild Pain or Fever > 100.5 Dextrose/Water (Dextrose 50% Syringe 50 Ml) 25 ml IVP PER PROTOCOL PRN; Protocol PRN Reason: Hypoglycemia Dextrose/Water (Dextrose 50% Syringe 50 Ml) 50 ml IVP PER PROTOCOL PRN; Protocol PRN Reason: Hypoglycemia Heparin Sodium (Porcine) (Heparin Sodium,Porcine/Pf 5,000 Unit/0.5 Ml Syringe) 5,000 unit SQ Q8HR [facility] Last Admin: 10/27/22 08:39 Dose: 5,000 unit Hydromorphone HCl (Hydromorphone 0.5 Mg/0.5 Ml Syringe) 0.5 mg IVP Q3HR PRN PRN Reason: Moderate Pain (Scale 4 to 6) Ceftriaxone Sodium 2 gm/ (Sodium Chloride) 50 mls @ 100 mls/hr IVPB Q24H DEE; Protocol Last Admin: 10/27/22 05:25 Dose: 100 mls/hr Metronidazole 500 mg/ IV (Solution) 100 mls @ 100 mls/hr IVPB Q8H DEE; Protocol Last Admin: 10/27/22 05:59 Dose: 100 mls/hr Dextrose/Sodium Chloride (Dextrose 5%-1/2ns Iv Soln) 1,000 mls @ 125 mls/hr IV .Q8H DEE Last Admin: 10/27/22 09:21 Dose: 125 mls/hr Insulin Aspart (Insulin Aspart (Novolog) 100 Unit/Ml Vial) 0 unit SQ ACHS DEE; Protocol Last Admin: 10/27/22 08:30 Dose: Not Given Metoprolol Tartrate (Metoprolol Tartrate 25 Mg Tab) 25 mg PO DAILY [facility] Last Admin: 10/27/22 09:00 Dose: 25 mg Naloxone HCl (Naloxone 0.4 Mg/Ml 1 Ml Vial) 0.2 mg IV Q2M PRN PRN Reason: Opioid Reversal Ondansetron HCl (Ondansetron 4 Mg/2 Ml Vial) 4 mg IVP Q8HR PRN PRN Reason: Nausea And Vomiting Objective - Vital Signs Vital signs: Vital Signs Temp 98.0 F 10/27/22 00:53 Pulse 101 H 10/27/22 10:23 Resp 18 10/27/22 10:23 BP 174/108 10/27/22 10:23 Pulse Ox 97 10/27/22 10:23 FiO2 Intake & Output 10/26/22 10/27/22 10/27/22 18:59 06:59 18:59 Weight 81.647 kg - Labs CBC & Chem 7: 10/27/22 09:13 10/27/22 09:13 Labs: Abnormal Lab Results - Last 24 Hours (Table) 10/27/22 10/27/22 10/27/22 Range/Units 02:45 02:45 02:45 WBC 17.3 H (3.8-10.6) k/uL Neutrophils # 15.4 H (1.3-7.7) k/uL Lymphocytes # 0.5 L (1.0-4.8) k/uL Monocytes # 1.1 H (0-1.0) k/uL Sodium 133 L (137-145) mmol/L Potassium 5.9 H (3.5-5.1) mmol/L BUN 54 H (9-20) mg/dL Creatinine 1.76 H (0.66-1.25) mg/dL Glucose 132 H (74-99) mg/dL POC Glucose (mg/dL) (70-110) mg/dL AST 60 H (17-59) U/L Troponin I 0.245 H* (0.000-0.034) ng/mL 10/27/22 10/27/22 10/27/22 Range/Units 05:20 08:23 09:13 WBC (3.8-10.6) k/uL Neutrophils # (1.3-7.7) k/uL Lymphocytes # (1.0-4.8) k/uL Monocytes # (0-1.0) k/uL Sodium (137-145) mmol/L Potassium (3.5-5.1) mmol/L BUN (9-20) mg/dL Creatinine (0.66-1.25) mg/dL Glucose (74-99) mg/dL POC Glucose (mg/dL) 64 L (70-110) mg/dL AST (17-59) U/L Troponin I 0.234 H* 0.236 H* (0.000-0.034) ng/mL 10/27/22 10/27/22 10/27/22 Range/Units 09:13 09:13 10:23 WBC 15.6 H (3.8-10.6) k/uL Neutrophils # (1.3-7.7) k/uL Lymphocytes # (1.0-4.8) k/uL Monocytes # (0-1.0) k/uL Sodium 135 L (137-145) mmol/L Potassium (3.5-5.1) mmol/L BUN 50 H (9-20) mg/dL Creatinine 1.59 H (0.66-1.25) mg/dL Glucose 181 H (74-99) mg/dL POC Glucose (mg/dL) 161 H (70-110) mg/dL AST (17-59) U/L Troponin I (0.000-0.034) ng/mL
--- NOTE | 2022-10-27 10:35 | P.CRDCN ---
History of Present Illness Consult date: 10/27/22 History of present illness: HISTORY OF PRESENT ILLNESS: This is a 77-year-old male with a past medical history significant for coronary artery disease with previous three-vessel CABG in 2013, hypertension, and hyperlipidemia. Patient follows in the office with Dr. Batista. We have been asked to see the patient in consultation for abnormal troponins. Patient examined at the bedside in the emergency room. Patient initially presented to [facility] for chief complaint of abdominal pain and nausea and vomiting. He was transferred to [facility] for further evaluation. The patient was found to have acute cholecystitis. He is scheduled for surgical intervention today with general surgery. Patient denies chest pain or pressure. He denies shortness of breath. Vital signs are stable. He is tachycardic on bedside telemetry monitoring. * EKG reveals sinus mechanism with no signs of acute ischemia. Right bundle branch block.. * Laboratory data: WBC 15.6. Hemoglobin 16.2. Platelet count 157. Sodium 135. Potassium 4.7. BUN 50. Creatinine 1.59. Troponin 0.245. 0.234. 0.236. * Current home cardiac medications: Unknown. Patients medication list has not been updated at the time of this dictation * Patient underwent Lexiscan stress test in April 2020 revealing evidence of prior inferior lateral myocardial infarction with moderate left ventricular dysfunction without any ischemia. Ejection fraction was noted to be 44% at that time. REVIEW OF SYSTEMS: At the time of my exam: CONSTITUTIONAL: Denies fever or chills. HEENT: Denies blurred vision, vision changes, or eye pain. Denies hemoptysis CARDIOVASCULAR: Denies chest pain. Denies orthopnea. Denies PND. Denies palpitations RESPIRATORY: Denies shortness of breath. GASTROINTESTINAL: Denies abdominal pain. Denies nausea or vomiting. HEMATOLOGIC: Denies bleeding disorders. GENITOURINARY: Denies any blood in urine. SKIN: Denies pruitis. Denies rash. PHYSICAL EXAM: VITAL SIGNS: Reviewed. GENERAL: Well-developed in no acute distress. HEENT: Head is normocephalic. Pupils are equal, round. Sclerae anicteric. Mucous membranes of the mouth are moist. Neck supple. No JVD or thyromegaly LUNGS: Respirations even and unlabored. Lungs essentially clear to auscultation bilaterally. HEART: Tachycardic. Regular rate and rhythm. S1 and S2 heard. ABDOMEN: Soft. Nondistended Tenderness noted upon palpation. EXTREMITIES: Normal range of motion. No clubbing or cyanosis. Peripheral pulses intact. No lower extremity edema NEUROLOGIC: Awake and alert. Oriented x 3. ASSESSMENT: Acute cholecystitis Sepsis, secondary to above Abnormal troponins, secondary to sepsis, no evidence of acute coronary syndrome Acute kidney injury Coronary artery disease with previous three-vessel CABG Ischemic cardiomyopathy, most recent ejection fraction 44% Hypertension Hyperlipidemia PLAN: Obtain 2-D echo to assess cardiac structure and function Resume home cardiac medications when medication list has been verified Patient scheduled for laparoscopic cholecystectomy today with general surgery Patient has no complaints of angina and is clinically euvolemic with no signs of acute heart failure No absolute contraindications from a cardiac standpoint to proceed with surgical intervention Further recommendations pending patient's course Nurse practitioner note has been reviewed by physician. Signing provider agrees with the documented findings, assessment, and plan of care. Past Medical History Past Medical History: Diabetes Mellitus, GERD/Reflux, Hyperlipidemia, Hypertension, Myocardial Infarction ([place]), Osteoarthritis ([place]), Prostate Disorder, Skin Disorder Additional Past Medical History / Comment(s): DIET CONTROLLLED DIABETES, mild Rosacea, enlarged prostate. 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 Past Anesthesia/Blood Transfusion Reactions: No Reported Reaction Past Psychological History: No Psychological Hx Reported Smoking Status: Never smoker Past Alcohol Use History: Rare Past Drug Use History: None Reported - Past Family History Father Family Medical History: Myocardial Infarction ([place]) Additional Family Medical History / Comment(s): AT AGE 48 FROM MASSIVE [place]. Mother Family Medical History: Cancer, Congestive Heart Failure (CHF) Additional Family Medical History / Comment(s): Thyroid cancer. Brother(s) Family Medical History: Cancer Additional Family Medical History / Comment(s): Skin cancer. (Melanoma with mets) Medications and Allergies Home Medications Medication Instructions Recorded Confirmed Type Aspirin 81 mg PO DAILY 06/24/18 05/13/20 History Atorvastatin [Lipitor] 80 mg PO DAILY 06/24/18 05/13/20 History Docusate Sodium [Dok] 100 mg PO DAILY 06/24/18 05/13/20 History Meloxicam [Mobic] 15 mg PO DAILY 06/24/18 05/13/20 History Metoprolol Tartrate [Lopressor] 25 mg PO DAILY 06/24/18 05/13/20 History Niacin [Niacin ER] 500 mg PO DAILY 06/24/18 05/13/20 History Nitroglycerin Sl Tabs [Nitrostat] 0.4 mg SUBLINGUAL Q5M PRN 06/24/18 05/13/20 History Pantoprazole Sodium [Protonix] 40 mg PO DAILY 06/24/18 05/13/20 History Valsartan [Diovan] 80 mg PO DAILY 06/24/18 05/13/20 History Fluticasone Nasal [place] [Flonase 1 spray EA NOSTRIL DAILY 01/22/20 05/13/20 History Nasal [place]] Colon Health 1 dose PO DAILY 05/13/20 05/13/20 History Multivitamins, Thera [Multivitamin 1 tab PO DAILY 05/13/20 05/13/20 History (formulary)] Sulfamethoxazole(Unknown Dose) 1 tab PO BID 05/13/20 05/13/20 History Allergies Allergy/AdvReac Type Severity Reaction Status Date / Time No Known Allergies Allergy Verified 05/13/20 10:32 Physical Exam Vitals: Vital Signs Temp Pulse Resp BP Pulse Ox 10/27/22 10:23 101 H 18 174/108 97 10/27/22 09:00 117 H 18 171/115 96 10/27/22 06:00 122 H 18 145/89 97 10/27/22 03:00 120 H 18 169/106 95 10/27/22 02:00 121 H 16 203/97 94 L 10/27/22 00:53 98.0 F 128 H 18 128/99 94 L Intake and Output 10/26/22 10/27/22 10/27/22 22:59 06:59 14:59 Other: Weight 81.647 kg Results 10/27/22 09:13 10/27/22 09:13 Cardiac Enzymes 10/27/22 10/27/22 10/27/22 Range/Units 02:45 02:45 05:20 AST 60 H (17-59) U/L Troponin I 0.245 H* 0.234 H* (0.000-0.034) ng/mL 10/27/22 10/27/22 Range/Units 09:13 09:13 AST 59 (17-59) U/L Troponin I 0.236 H* (0.000-0.034) ng/mL CBC 10/27/22 10/27/22 Range/Units 02:45 09:13 WBC 17.3 H 15.6 H (3.8-10.6) k/uL RBC 4.83 4.88 (4.30-5.90) m/uL Hgb 15.6 16.2 (13.0-17.5) gm/dL Hct 46.3 47.4 (39.0-53.0) % Plt Count 154 157 (150-450) k/uL Comprehensive Metabolic Panel 10/27/22 10/27/22 Range/Units 02:45 09:13 Sodium 133 L 135 L (137-145) mmol/L Potassium 5.9 H 4.7 (3.5-5.1) mmol/L Chloride 102 101 (98-107) mmol/L Carbon Dioxide 26 27 (22-30) mmol/L BUN 54 H 50 H (9-20) mg/dL Creatinine 1.76 H 1.59 H (0.66-1.25) mg/dL Glucose 132 H 181 H (74-99) mg/dL Calcium 8.8 8.7 (8.4-10.2) mg/dL AST 60 H 59 (17-59) U/L ALT 28 30 (4-49) U/L Alkaline Phosphatase 71 90 (38-126) U/L Total Protein 6.7 6.7 (6.3-8.2) g/dL Albumin 3.8 3.7 (3.5-5.0) g/dL Current Medications Generic Name Dose Route Start Last Admin Trade Name Freq PRN Reason Stop Dose Admin Acetaminophen 650 mg 10/27/22 04:02 Acetaminophen Tab 325 Mg Tab PO Q6HR PRN Mild Pain or Fever > 100.5 Dextrose/Water 25 ml 10/27/22 08:32 Dextrose 50% Syringe 50 Ml IVP PER PROTOCOL PRN Hypoglycemia Protocol Dextrose/Water 50 ml 10/27/22 08:32 Dextrose 50% Syringe 50 Ml IVP PER PROTOCOL PRN Hypoglycemia Protocol Heparin Sodium (Porcine) 5,000 unit 10/27/22 08:00 10/27/22 08:39 Heparin Sodium,Porcine/Pf 5,000 Unit/0.5 Ml Syringe SQ 5,000 unit Q8HR DEE Administration Hydromorphone HCl 0.5 mg 10/27/22 04:02 Hydromorphone 0.5 Mg/0.5 Ml Syringe IVP Q3HR PRN Moderate Pain (Scale 4 to 6) Ceftriaxone Sodium 2 gm/ 50 mls @ 100 mls/hr 10/27/22 05:00 10/27/22 05:25 Sodium Chloride IVPB 100 mls/hr Q24H DEE Administration Protocol Metronidazole 500 mg/ IV 100 mls @ 100 mls/hr 10/27/22 05:00 10/27/22 05:59 Solution IVPB 100 mls/hr Q8H DEE Administration Protocol Dextrose/Sodium Chloride 1,000 mls @ 125 mls/hr 10/27/22 09:00 10/27/22 09:21 Dextrose 5%-1/2ns Iv Soln IV 125 mls/hr .Q8H DEE Administration Insulin Aspart 0 unit 10/27/22 07:30 10/27/22 08:30 Insulin Aspart (Novolog) 100 Unit/Ml Vial SQ Not Given ACHS DEE Protocol Metoprolol Tartrate 25 mg 10/27/22 09:00 10/27/22 09:00 Metoprolol Tartrate 25 Mg Tab PO 25 mg DAILY DEE Administration Naloxone HCl 0.2 mg 10/27/22 04:02 Naloxone 0.4 Mg/Ml 1 Ml Vial IV Q2M PRN Opioid Reversal Ondansetron HCl 4 mg 10/27/22 04:02 Ondansetron 4 Mg/2 Ml Vial IVP Q8HR PRN Nausea And Vomiting Intake and Output 10/26/22 10/27/22 10/27/22 22:59 06:59 14:59 Other: Weight 81.647 kg 10/27/22 09:13 10/27/22 09:13
--- NOTE | 2022-10-27 11:41 | CA ---
Transthoracic Echo Report Name: Benson Pa Age: 77 Gender: M : 1945 Exam Date: 10/27/2022 09:03 Exam Location: [facility] Ht (in): 67 Wt (lb): 180 Ordering Physician: Rohan Fuentes Attending/Referring Phys: [id number], Gina Brim Presser Maureen Jiménez RDCS Procedure CPT: Indications: nstemi Cardiac Hx: Technical Quality: Very technically difficult study Contrast 1: Lumason Total Dose (mL): 4 Contrast 2: Total Dose (mL): MEASUREMENTS (Male / Female) Normal Values 2D ECHO LV Diastolic Diameter PLAX 4.3 cm 4.2 - 5.9 / 3.9 - 5.3 cm LV Systolic Diameter PLAX 4.7 cm IVS Diastolic Thickness 1.7 cm 0.6 - 1.0 / 0.6 - 0.9 cm LVPW Diastolic Thickness 1.7 cm 0.6 - 1.0 / 0.6 - 0.9 cm LV Relative Wall Thickness 0.8 LA Systolic Diameter LX 4.9 cm 3.0 - 4.0 / 2.7 - 3.8 cm FINDINGS Left Ventricle Moderately increased septal wall thickness. Posterior Hypokinesis, Inferior hypokinesis, left ventricular ejection fraction is estimated at 35 %. Right Ventricle The right ventricle is normal in size and function. Right Atrium The right atrium is normal in size. Left Atrium Moderate left atrial dilatation. Mitral Valve Structurally normal mitral valve mild mitral regurgitation. Aortic Valve Structurally normal aortic valve Tricuspid Valve Structurally normal tricuspid mild tricuspid regurgitation. Pulmonic Valve Structurally normal pulmonic valve without significant stenosis. There is no pulmonic regurgitation. Pericardium Normal pericardium without effusion. Aorta Normal aortic root dimension. CONCLUSIONS Ischemic cardiomyopathy with moderate severe LV dysfunction with an ejection fraction of 35% secondary to prior extensive inferior wall myocardial infarction Moderate left atrial enlargement Mild mitral regurgitation Previewed by: Dr. Bin Batista MD (Electronically Signed) Final Date: 27 October 2022 11:40
[2022-10-27] MEDS: HYDROmorphone 0.5 MG/0.5 ML SYRINGE IVP PRN (13:25)
[2022-10-27] MEDS ORDERED: LACTATED RINGERS 1,000 ML IV ONE ×3 (15:31→17:40)
[2022-10-27 15:36] LABS: Glucose,Whole Blood 152 mg/dL (70-110)
[2022-10-27] MEDS ORDERED: ETOMIDATE 2 MG/ML 10 ML VIAL ONE (15:49)
[2022-10-27] MEDS ORDERED: DEXAMETHASONE SOD PHOS (MDV) 100 MG/10 ML VIAL ONE (15:49)
[2022-10-27] MEDS ORDERED: ROCURONIUM 10 MG/ML (5 ML VIAL) IV ONE (15:49)
[2022-10-27] MEDS ORDERED: ONDANSETRON 4 MG/2 ML VIAL ONE (15:49)
[2022-10-27] MEDS ORDERED: KETOROLAC 15 MG/ML 1 ML VIAL ONE (15:49)
[2022-10-27] MEDS ORDERED: GLYCOPYRROLATE 0.2 MG/ML 2 ML VIAL ONE (15:49)
[2022-10-27] MEDS ORDERED: LIDOCAINE 2% INJ 20 MG/ML (2 ML VIAL) ONE (15:49)
[2022-10-27] MEDS ORDERED: NEOSTIGMINE 1 MG/ML 10 ML VIAL ONE (15:49)
[2022-10-27] MEDS ORDERED: MIDAZOLAM 2 MG/2 ML VIAL ONE (15:49)
[2022-10-27] MEDS ORDERED: HYDROmorphone (PF) 1 MG/ML ONE (15:49)
[2022-10-27] MEDS ORDERED: fentaNYL (PF) 50 MCG/ML 2 ML AMP ONE (15:49)
[2022-10-27] MEDS ORDERED: SODIUM CHLORIDE 0.9% 50 ML with ceFAZolin 2,000 MG IV ONE ×2 (16:05)
[2022-10-27] MEDS ORDERED: BUPIVACAINE (PF) 0.25% 30 ML VIAL SQ ONE (16:05)
[2022-10-27] MEDS ORDERED: HYDROmorphone 1 MG/ML 1 ML SYRINGE IVP PRN (16:27)
[2022-10-27] MEDS ORDERED: HYDROmorphone 0.5 MG/0.5 ML SYRINGE IVP PRN (16:27)
--- NOTE | 2022-10-27 16:27 | P.OP ---
Date of Procedure: 10/27/22 Preoperative Diagnosis: Cholecystitis Sepsis Postoperative Diagnosis: Cholecystitis Sepsis Procedure(s) Performed: Laparoscopic cholecystectomy Anesthesia: TWIN Surgeon: Colby Rollins Estimated Blood Loss (ml): 5 Pathology: other (Gallbladder) Condition: stable Disposition: PACU Description of Procedure: The patient was placed on the operating table. The patient received a general endotracheal tube anesthesia. The patients abdomen was prepped and draped in the usual sterile fashion. Through an infraumbilical stab incision, the fascia of the anterior abdominal wall was grasped with a pair of Kochers and then the Veress needle was placed in the peritoneal cavity. Position of the Veress needle was confirmed with positive drop test. The abdomen was then insufflated. After adequate insufflation, the 10 mm trocar was placed in the peritoneal cavity. Following this the laparoscope was placed in the peritoneal cavity. The patient was placed in the head-up, right side up position and then a 5 mm trocar was placed in the right lateral and right subcostal position under direct visualization. A 8 mm trocar was placed in the epigastric position. The gallbladder was grasped in the fundus and infundibulum. Traction on the gallbladder was placed in the lateral and the cephalad positions. The triangle of Calot was visualized.. The cystic duct was bluntly dissected until the union of the cystic duct and common bile duct was seen. A critical view of safety was achieved. The cystic duct was then divided and sealed with the Harmonic scissors. A PDS Endoloop was then placed throughout the cystic duct stump. The cystic artery divided and sealed with the Harmonic scissors. The gallbladder was then removed from the liver bed using Harmonic scissors. The gallbladder was then extracted through the epigastric port site. Operative field was checked for any bleeding spots and Harmonic scissors was used to coagulate the liver bed. The abdomen was irrigated. The trocars were removed. The skin was closed using interrupted 3-0 Vicryl suture. Dermabond dressing were applied. The patient tolerated the procedure well.
[2022-10-27] MEDS ORDERED: LABETALOL 5 MG/ML VIAL MDV IVP ONE ×2 (17:53→18:09)
[2022-10-27 19:26] LABS: Glucose,Whole Blood 129 mg/dL (70-110)
[2022-10-27] MEDS ORDERED: cloNIDine HCL 0.1 MG TAB PO PRN (19:57)
[2022-10-28 00:17] LABS: Glucose,Whole Blood 125 mg/dL (70-110)
[2022-10-28 04:19] LABS: Glucose,Whole Blood 154 mg/dL (70-110)
[2022-10-28] MEDS: metroNIDAZOLE-NS PMX 500 MG in SALINE 1 100ML.BAG IVPB SCH ×3 (06:49→20:42)
[2022-10-28] MEDS: INSULIN ASPART (NovoLOG) 100 UNIT/ML VIAL SQ SCH ×4 (06:56→20:26)
[2022-10-28 08:07] LABS: Glucose,Whole Blood 116 mg/dL (70-110)
[2022-10-28 08:11] LABS: Calcium 8.7 mg/dL (8.4-10.2); Magnesium 1.7 mg/dL (1.6-2.3); Potassium 4.5 mmol/L (3.5-5.1)
[2022-10-28 08:58] LABS: Basophils % (A) 0 %; Eosinophils % (A) 0 %; HCT 45.9 % (39.0-53.0); HGB 15.5 gm/dL (13.0-17.5); Lymphocytes # (A) 0.8 k/uL (1.0-4.8); Lymphocytes % (A) 5 %; MCH 33.3 pg (25.0-35.0); MCHC 33.7 g/dL (31.0-37.0); MCV 98.8 fL (80.0-100.0); Mean Platelet Volume 10.5; Monocytes % (A) 6 %; Neutrophils # (A) 13.6 k/uL (1.3-7.7); Neutrophils % (A) 87 %; Platelet Count 111 k/uL (150-450); RBC 4.65 m/uL (4.30-5.90); RDW 13.4 % (11.5-15.5); WBC 15.6 k/uL (3.8-10.6)
[2022-10-28] MEDS: HYDROmorphone 0.5 MG/0.5 ML SYRINGE IVP PRN (09:10)
[2022-10-28] MEDS: ENOXAPARIN 40 MG/0.4 ML SYRINGE SQ SCH (09:11)
[2022-10-28] MEDS: PROCHLORPERAZINE INJ 10 MG/2 ML VIAL IVP PRN (09:51)
--- NOTE | 2022-10-28 10:42 | P.PN ---
Subjective Progress Note Date: 10/28/22 HISTORY OF PRESENT ILLNESS: This is a 77-year-old male with a past medical history significant for coronary artery disease with previous three-vessel CABG in 2013, hypertension, and hyperlipidemia. Patient follows in the office with Dr. Batista. We have been asked to see the patient in consultation for abnormal troponins. Patient examined at the bedside in the emergency room. Patient initially presented to [facility] for chief complaint of abdominal pain and nausea and vomiting. He was transferred to [facility] for further evaluation. The patient was found to have acute cholecystitis. He is scheduled for surgical intervention today with general surgery. Patient denies chest pain or pressure. He denies shortness of breath. Vital signs are stable. He is tachycardic on bedside telemetry monitoring. * EKG reveals sinus mechanism with no signs of acute ischemia. Right bundle branch block.. * Laboratory data: WBC 15.6. Hemoglobin 16.2. Platelet count 157. Sodium 135. Potassium 4.7. BUN 50. Creatinine 1.59. Troponin 0.245. 0.234. 0.236. * Current home cardiac medications: Unknown. Patients medication list has not been updated at the time of this dictation * Patient underwent Lexiscan stress test in April 2020 revealing evidence of jennifer or inferior lateral myocardial infarction with moderate left ventricular dysfunction without any ischemia. Ejection fraction was noted to be 44% at that time. 10/28/2022 Patient is status post laparoscopic cholecystectomy. Postop day #1. Patient examined this morning at the bedside. Patient denies chest pain or pressure. He denies shortness of breath. The patient is nauseous this morning and vomiting at the time of my examination. The patient's blood pressure is eleva bernardo this morning, however he has been unable to keep down his medications. Echocardiogram completed revealing ejection fraction 35% with mild MR. PHYSICAL EXAM: VITAL SIGNS: Reviewed. GENERAL: Well-developed in no acute distress. HEENT: Head is normocephalic. Pupils are equal, round. Sclerae anicteric. Mucous membranes of the mouth are moist. Neck supple. No JVD or thyromegaly LUNGS: Respirations even and unlabored. Lungs essentially clear to auscultation bilaterally. HEART: Regular rate and rhythm. S1 and S2 heard. ABDOMEN: Soft. Nondistended Tenderness noted upon palpation. EXTREMITIES: Normal range of motion. No clubbing or cyanosis. Peripheral pulses intact. No lower extremity edema NEUROLOGIC: Awake and alert. Oriented x 3. ASSESSMENT: Acute cholecystitis Sepsis, secondary to above Abnormal troponins, secondary to sepsis, no evidence of acute coronary syndrome Acute kidney injury Coronary artery disease with previous three-vessel CABG Ischemic cardiomyopathy, EF 35% Hypertension Hyperlipidemia PLAN: Continue postoperative management per general surgery Continue to monitor blood pressure Resume home dose of valsartan Resume statin therapy Hold Lasix secondary to vomiting Further recommendations pending patient's course Nurse practitioner note has been reviewed by physician. Signing provider agrees with the documented findings, assessment, and plan of care. Objective - Vital Signs Vital signs: Vital Signs Temp 97.2 F L 10/28/22 07:57 Pulse 89 10/28/22 07:57 Resp 13 10/28/22 07:57 BP 189/94 10/28/22 09:18 Pulse Ox 98 10/28/22 07:57 FiO2 Intake & Output 10/27/22 10/28/22 10/28/22 18:59 06:59 18:59 Intake Total 1250 240 Output Total 5 600 500 Balance 1245 -600 -260 Weight 81.647 kg Intake: IV 1250 Oral 240 Output: Urine 600 500 Estimated Blood Loss 5 Other: Voiding Method Indwelling Catheter # Voids 1 - Labs CBC & Chem 7: 10/28/22 07:12 10/28/22 07:12 Labs: Abnormal Lab Results - Last 24 Hours (Table) 10/27/22 10/27/22 10/27/22 Range/Units 09:20 15:26 19:25 WBC (3.8-10.6) k/uL Plt Count (150-450) k/uL Neutrophils # (1.3-7.7) k/uL Lymphocytes # (1.0-4.8) k/uL Sodium (137-145) mmol/L BUN (9-20) mg/dL Glucose (74-99) mg/dL POC Glucose (mg/dL) 152 H 129 H (70-110) mg/dL Hemoglobin A1c 6.9 H (0.0-6.0) % 10/28/22 10/28/22 10/28/22 Range/Units 00:16 04:17 07:12 WBC 15.6 H (3.8-10.6) k/uL Plt Count 111 L (150-450) k/uL Neutrophils # 13.6 H (1.3-7.7) k/uL Lymphocytes # 0.8 L (1.0-4.8) k/uL Sodium (137-145) mmol/L BUN (9-20) mg/dL Glucose (74-99) mg/dL POC Glucose (mg/dL) 125 H 154 H (70-110) mg/dL Hemoglobin A1c (0.0-6.0) % 10/28/22 10/28/22 Range/Units 07:12 08:04 WBC (3.8-10.6) k/uL Plt Count (150-450) k/uL Neutrophils # (1.3-7.7) k/uL Lymphocytes # (1.0-4.8) k/uL Sodium 135 L (137-145) mmol/L BUN 36 H (9-20) mg/dL Glucose 127 H (74-99) mg/dL POC Glucose (mg/dL) 116 H (70-110) mg/dL Hemoglobin A1c (0.0-6.0) %
[2022-10-28 11:03] LABS: Glucose,Whole Blood 124 mg/dL (70-110)
[2022-10-28] MEDS: TAMSULOSIN 0.4 MG CAP.ER.24H PO SCH (11:41)
[2022-10-28] MEDS: DEXTROSE 5%-0.45% NACL 1,000 ML IV SCH ×2 (11:42→22:54)
[2022-10-28] MEDS ORDERED: MAGNESIUM SULFATE-D5W PMX 1 GM in DEXTROSE/WATER 1 100ML.BAG IVPB ONE (12:32)
--- NOTE | 2022-10-28 12:36 | P.PN ---
Subjective Progress Note Date: 10/28/22 CHIEF COMPLAINT: Cholecystitis and sepsis HISTORY OF PRESENT ILLNESS: Patient is postop day #1 status post laparoscopic cholecystectomy. Patient has complained of nausea and vomiting around 7 AM. He has vomited 3 times. He does report that his pain is better than yesterday. Denies any flatus or bowel movement. Currently on a clear liquid diet but has only taken a few sips. Afebrile. Tachycardia improved. BP elevated this morning. Now blood pressure on the lower side. Urine output adequate WBC 15.6 Hgb 15.5 platelets 111 sodium is 135 creatinine 1.10 glucose 124 magnesium 1.7 potassium improved 4.5 PHYSICAL EXAM: VITAL SIGNS: Reviewed. GENERAL: Well-developed in no acute distress. HEENT: No sclera icterus. Extraocular movements grossly intact. Moist buccal mucosa. Head is atraumatic, normocephalic. ABDOMEN: Soft. Nondistended. Nontender. NEUROLOGIC: Alert and oriented. Cranial nerves II through XII grossly intact. ASSESSMENT: 1. Cholecystitis with sepsis status post laparoscopic cholecystectomy 2. Hypomagnesemia PLAN: -Continue clear liquid diet -Continue antiemetics. Medicine has added Compazine -Continue pain medication as needed-continue IV fluids -Replace magnesium -GI prophylaxis Protonix and DVT prophylaxis subcu Lovenox Physician Vault Person note has been reviewed by physician. Signing provider agrees with the documented findings, assessment, and plan of care. Objective - Vital Signs Vital signs: Vital Signs Temp 98.3 F 10/28/22 10:35 Pulse 84 10/28/22 10:35 Resp 19 10/28/22 10:35 BP 85/49 10/28/22 10:35 Pulse Ox 98 10/28/22 10:35 FiO2 Intake & Output 10/27/22 10/28/22 10/28/22 18:59 06:59 18:59 Intake Total 1250 240 Output Total 5 600 500 Balance 1245 -600 -260 Weight 81.647 kg Intake: IV 1250 Oral 240 Output: Urine 600 500 Estimated Blood Loss 5 Other: Voiding Method Indwelling Catheter Indwelling Catheter # Voids 1 - Labs CBC & Chem 7: 10/28/22 07:12 10/28/22 07:12 Labs: Abnormal Lab Results - Last 24 Hours (Table) 10/27/22 10/27/22 10/27/22 Range/Units 09:20 15:26 19:25 WBC (3.8-10.6) k/uL Plt Count (150-450) k/uL Neutrophils # (1.3-7.7) k/uL Lymphocytes # (1.0-4.8) k/uL Sodium (137-145) mmol/L BUN (9-20) mg/dL Glucose (74-99) mg/dL POC Glucose (mg/dL) 152 H 129 H (70-110) mg/dL Hemoglobin A1c 6.9 H (0.0-6.0) % 10/28/22 10/28/22 10/28/22 Range/Units 00:16 04:17 07:12 WBC 15.6 H (3.8-10.6) k/uL Plt Count 111 L (150-450) k/uL Neutrophils # 13.6 H (1.3-7.7) k/uL Lymphocytes # 0.8 L (1.0-4.8) k/uL Sodium (137-145) mmol/L BUN (9-20) mg/dL Glucose (74-99) mg/dL POC Glucose (mg/dL) 125 H 154 H (70-110) mg/dL Hemoglobin A1c (0.0-6.0) % 10/28/22 10/28/22 10/28/22 Range/Units 07:12 08:04 11:01 WBC (3.8-10.6) k/uL Plt Count (150-450) k/uL Neutrophils # (1.3-7.7) k/uL Lymphocytes # (1.0-4.8) k/uL Sodium 135 L (137-145) mmol/L BUN 36 H (9-20) mg/dL Glucose 127 H (74-99) mg/dL POC Glucose (mg/dL) 116 H 124 H (70-110) mg/dL Hemoglobin A1c (0.0-6.0) %
[2022-10-28] MEDS: VALSARTAN 160 MG TAB PO SCH (13:51)
[2022-10-28] MEDS: PANTOPRAZOLE 40 MG TABLET PO SCH (13:51)
[2022-10-28] MEDS: MORPHINE SULFATE 2 MG/ML SYRINGE IVP PRN ×2 (13:57→20:42)
--- NOTE | 2022-10-28 15:25 | P.PN ---
Subjective Progress Note Date: 10/28/22 (delayed charting seen at 0900) Patient is a 77-year-old male for history of coronary artery disease status post CABG, diabetes mellitus type 2 diet controlled, hypertension, dyslipidemia, and BPH who was transferred from [facility] due to concerns for acute cholecystitis with sepsis. On arrival to the ER he was tachycardic with a pulse of 128. Laboratory analysis revealed white blood cell count 17.3, sodium 133, potassium 5.9, BUN 54, creatinine 1.76, AST 60, total bilirubin was normal. Troponin was mildly elevated at 0.245. He was started on Rocephin and Flagyl. Arrangements are made for admission. Cardiology and surgery were consulted. He was started on IV fluids and labs are repeated the following morning which showed normalization of his potassium at 4.7. Gallbladder ultrasound- possible slude vs small gallstones, no dilated ducts. Patient seen and examined at bedside. He complains of feeling as though his mouth is really dry as was feeling slightly woozy and lightheaded. He denies any chest pain or shortness of breath. He continues to have belly pain and feel nauseated. General: ill appearing, mild distress, appears at stated age Derm: warm, + diaphoretic Head: atraumatic, normocephalic, symmetric Eyes: EOMI, no lid lag, anicteric sclera Mouth: no lip lesion, mucus membranes moist Cardiovascular: S1S2 irreg tachy, no murmur, positive posterior tibial pulse bilateral, Lungs: Decreased bs bilateral, no rhonchi, no rales , no accessory muscle use Abdominal: soft, +tender to palpation diffusely, no guarding, no appreciable organomegaly Ext: no gross muscle atrophy, no edema, no contractures Neuro: CN II-XI grossly intact, no focal neuro deficits Psych: Alert, oriented, appropriate affect Assessment/plan: Acute cholecystitis with sepsis s/p lap vikas 10/27/22 - surgery recs - Decreased compazine - change from zofran to compazine - rocephin and flagyl SHAAN, resolved -Creatinine stable from yesterday -Hyperkalemia resolved -Continue fluids but decrease rate -Avoid nephrotoxic agents -Medication still need to be verified, ARB and pelvic are listed on home meds and these will continue to be held. Type II NSTEMI due to sepsis Ischemic cardimyoapthy with EF 35% - gentle IV fluids - cardio recs appreciated -Continue with Lopressor - resume ASA once okay with surgery - valsartan if BP can tolerate, dropped after dilaudid -Check lipid profile DM II with hypoglycemia, resolved - SSI, changed accucheck to q ACHS Chronic left knee infection - resume home doxy as rocephin and flagyl will not cover MRSA. Hyperkalemia, resolved Chronic: GERD, HLD, HTN, CAD with prior CABG, BPH - patient with difficulty with ambulation at baseline per CM, consult pt/ot DVT prophylaxis: Heparin Discussed with: Dr. Ria correa Anticipated discharge: Pending clinical course Anticipated discharge place: Pending clinical course A total of 35 minutes was spent on the care of this complex patient more than 50% of the time was spent in counseling and care coordination. Active Medications Generic Name Dose Route Start Last Admin Trade Name Freq PRN Reason Stop Dose Admin Acetaminophen 650 mg 10/27/22 04:02 Acetaminophen Tab 325 Mg Tab PO Q6HR PRN Mild Pain or Fever > 100.5 Hydrocodone Bitart/Acetaminophen 2 each 10/27/22 16:27 Hydrocodone/Apap 5-325mg 1 Each Tab PO Q6HR PRN Severe Pain (Scale 7 to 10) Atorvastatin Calcium 80 mg 10/28/22 21:00 Atorvastatin 80 Mg Tab PO HS DEE Dextrose/Water 25 ml 10/27/22 08:32 Dextrose 50% Syringe 50 Ml IVP PER PROTOCOL PRN Hypoglycemia Protocol Dextrose/Water 50 ml 10/27/22 08:32 Dextrose 50% Syringe 50 Ml IVP PER PROTOCOL PRN Hypoglycemia Protocol Enoxaparin Sodium 40 mg 10/28/22 09:00 10/28/22 09:11 Enoxaparin 40 Mg/0.4 Ml Syringe SQ 40 mg DAILY DEE Administration Fluticasone Propionate 2 spray 10/29/22 09:00 Fluticasone 50mcg/[place] Nasal 16gm EA NOSTRIL DAILY DEE Ceftriaxone Sodium 2 gm/ 50 mls @ 100 mls/hr 10/27/22 05:00 10/28/22 06:04 Sodium Chloride IVPB 100 mls/hr Q24H DEE Administration Protocol Metronidazole 500 mg/ IV 100 mls @ 100 mls/hr 10/27/22 05:00 10/28/22 12:21 Solution IVPB 100 mls/hr Q8H DEE Administration Protocol Dextrose/Sodium Chloride 1,000 mls @ 75 mls/hr 10/27/22 09:00 10/28/22 11:42 Dextrose 5%-1/2ns Iv Soln IV 75 mls/hr .[id number] DEE Administration Insulin Aspart 0 unit 10/27/22 07:30 10/28/22 11:45 Insulin Aspart (Novolog) 100 Unit/Ml Vial SQ Not Given ACHS [facility] Protocol Metoprolol Tartrate 25 mg 10/27/22 09:00 10/27/22 09:00 Metoprolol Tartrate 25 Mg Tab PO 25 mg DAILY [facility] Administration Morphine Sulfate 2 mg 10/28/22 13:47 10/28/22 13:57 Morphine Sulfate 2 Mg/Ml Syringe IVP 2 mg Q4HR PRN Administration Pain/Discomfort Naloxone HCl 0.2 mg 10/27/22 04:02 Naloxone 0.4 Mg/Ml 1 Ml Vial IV Q2M PRN Opioid Reversal Non-Formulary Medication 100 mg 10/28/22 21:00 Doxycycline Hyclate [Doxycycline Hyclate] PO BID [facility] Pantoprazole Sodium 40 mg 10/28/22 12:45 10/28/22 13:51 Pantoprazole 40 Mg Tablet PO 40 mg [id number] [facility] Administration Prochlorperazine Edisylate 5 mg 10/28/22 09:01 10/28/22 09:51 Prochlorperazine Inj 10 Mg/2 Ml Vial IVP 5 mg Q4HR PRN Administration Nausea And Vomiting Tamsulosin HCl 0.4 mg 10/28/22 08:30 10/28/22 11:41 Tamsulosin 0.4 Mg Cap.Er.24h PO 0.4 mg PC-[id number] [facility] Administration Valsartan 160 mg 10/28/22 09:00 10/28/22 13:51 Valsartan 160 Mg Tab PO 160 mg DAILY [facility] Administration Objective - Vital Signs Vital signs: Vital Signs Temp 98.6 F 10/28/22 15:12 Pulse 80 10/28/22 15:12 Resp 15 10/28/22 15:12 BP 179/80 10/28/22 15:12 Pulse Ox 95 10/28/22 15:12 FiO2 Intake & Output 10/27/22 10/28/22 10/28/22 18:59 06:59 18:59 Intake Total 1250 598 Output Total 5 600 500 Balance 1245 -600 98 Weight 81.647 kg Intake: IV 1250 Oral 598 Output: Urine 600 500 Estimated Blood Loss 5 Other: Voiding Method Indwelling Catheter Indwelling Catheter # Voids 1 - Labs CBC & Chem 7: 10/28/22 07:12 10/28/22 07:12 Labs: Abnormal Lab Results - Last 24 Hours (Table) 10/27/22 10/27/22 10/28/22 Range/Units 15:26 19:25 00:16 WBC (3.8-10.6) k/uL Plt Count (150-450) k/uL Neutrophils # (1.3-7.7) k/uL Lymphocytes # (1.0-4.8) k/uL Sodium (137-145) mmol/L BUN (9-20) mg/dL Glucose (74-99) mg/dL POC Glucose (mg/dL) 152 H 129 H 125 H (70-110) mg/dL 10/28/22 10/28/22 10/28/22 Range/Units 04:17 07:12 07:12 WBC 15.6 H (3.8-10.6) k/uL Plt Count 111 L (150-450) k/uL Neutrophils # 13.6 H (1.3-7.7) k/uL Lymphocytes # 0.8 L (1.0-4.8) k/uL Sodium 135 L (137-145) mmol/L BUN 36 H (9-20) mg/dL Glucose 127 H (74-99) mg/dL POC Glucose (mg/dL) 154 H (70-110) mg/dL 10/28/22 10/28/22 Range/Units 08:04 11:01 WBC (3.8-10.6) k/uL Plt Count (150-450) k/uL Neutrophils # (1.3-7.7) k/uL Lymphocytes # (1.0-4.8) k/uL Sodium (137-145) mmol/L BUN (9-20) mg/dL Glucose (74-99) mg/dL POC Glucose (mg/dL) 116 H 124 H (70-110) mg/dL
[2022-10-28 16:36] LABS: Glucose,Whole Blood 200 mg/dL (70-110)
[2022-10-28 20:25] LABS: Glucose,Whole Blood 129 mg/dL (70-110)
[2022-10-28] MEDS: ATORVASTATIN 80 MG TAB PO SCH (20:41)
[2022-10-28] MEDS: DOXYCYCLINE 100 MG CAP PO SCH (20:41)
[2022-10-28] MEDS: HYDROcodone/APAP 5-325MG 1 EACH TAB PO PRN (23:35)
[2022-10-29] MEDS: HYDROcodone/APAP 5-325MG 1 EACH TAB PO PRN ×3 (05:52→20:50)
[2022-10-29] MEDS: metroNIDAZOLE-NS PMX 500 MG in SALINE 1 100ML.BAG IVPB SCH ×3 (05:52→20:50)
[2022-10-29] MEDS: PROCHLORPERAZINE INJ 10 MG/2 ML VIAL IVP PRN ×2 (06:04→20:50)
[2022-10-29 06:16] LABS: Glucose,Whole Blood 125 mg/dL (70-110)
[2022-10-29] MEDS: INSULIN ASPART (NovoLOG) 100 UNIT/ML VIAL SQ SCH ×4 (06:19→20:19)
[2022-10-29] MEDS: PANTOPRAZOLE 40 MG TABLET PO SCH (06:21)
[2022-10-29 07:35] LABS: HCT 39.4 % (39.0-53.0); Platelet Count 110 k/uL (150-450); RBC 4.06 m/uL (4.30-5.90); RDW 12.6 % (11.5-15.5); WBC 9.1 k/uL (3.8-10.6)
[2022-10-29 08:10] LABS: ALT 38 U/L (4-49); AST 51 U/L (17-59); African American GFR (CKD) >90 (>60 ml/min/1.73 sqM); Albumin 2.9 g/dL (3.5-5.0); Alkaline Phosphatase 65 U/L (38-126); Anion Gap 3 mmol/L; Blood Urea Nitrogen 23 mg/dL (9-20); Calcium 7.7 mg/dL (8.4-10.2); Carbon Dioxide 30 mmol/L (22-30); Chloride 99 mmol/L (98-107); Glucose 131 mg/dL (74-99); Non-African American GFR(CKD) 85 (>60 ml/min/1.73 sqM); Potassium 3.5 mmol/L (3.5-5.1); Sodium 132 mmol/L (137-145); Total Bilirubin 1.2 mg/dL (0.2-1.3); Total Protein 5.4 g/dL (6.3-8.2)
[2022-10-29] MEDS: hydroCHLOROthiazide 25 MG TAB PO SCH (08:44)
[2022-10-29] MEDS: TAMSULOSIN 0.4 MG CAP.ER.24H PO SCH (08:44)
[2022-10-29] MEDS: VALSARTAN 160 MG TAB PO SCH (08:44)
[2022-10-29] MEDS: DOXYCYCLINE 100 MG CAP PO SCH ×2 (08:44→20:50)
[2022-10-29] MEDS: ENOXAPARIN 40 MG/0.4 ML SYRINGE SQ SCH (08:44)
[2022-10-29] MEDS: FLUTICASONE 50MCG/SPRAY NASAL 16GM EA NOSTRIL SCH (08:45)
[2022-10-29] MEDS ORDERED: METOPROLOL TARTRATE 25 MG TAB PO SCH (09:00)
--- NOTE | 2022-10-29 09:04 | P.PN ---
Subjective Progress Note Date: 10/29/22 HISTORY OF PRESENT ILLNESS: This is a 77-year-old male with a past medical history significant for coronary artery disease with previous three-vessel CABG in 2013, hypertension, and hyperlipidemia. Patient follows in the office with Dr. Batista. We have been asked to see the patient in consultation for abnormal troponins. Patient examined at the bedside in the emergency room. Patient initially presented to [facility] for chief complaint of abdominal pain and nausea and vomiting. He was transferred to [facility] for further evaluation. The patient was found to have acute cholecystitis. He is scheduled for surgical intervention today with general surgery. Patient denies chest pain or pressure. He denies shortness of breath. Vital signs are stable. He is tachycardic on bedside telemetry monitoring. * EKG reveals sinus mechanism with no signs of acute ischemia. Right bundle branch block.. * Laboratory data: WBC 15.6. Hemoglobin 16.2. Platelet count 157. Sodium 135. Potassium 4.7. BUN 50. Creatinine 1.59. Troponin 0.245. 0.234. 0.236. * Current home cardiac medications: Unknown. Patients medication list has not been updated at the time of this dictation * Patient underwent Lexiscan stress test in April 2020 revealing evidence of jennifer or inferior lateral myocardial infarction with moderate left ventricular dysfunction without any ischemia. Ejection fraction was noted to be 44% at that time. 10/28/2022 Patient is status post laparoscopic cholecystectomy. Postop day #1. Patient examined this morning at the bedside. Patient denies chest pain or pressure. He denies shortness of breath. The patient is nauseous this morning and vomiting at the time of my examination. The patient's blood pressure is eleva bernardo this morning, however he has been unable to keep down his medications. Echocardiogram completed revealing ejection fraction 35% with mild MR. 10/29/2022 Patient examined this morning at the bedside. Patient denies chest pain or pressure. Denies SOB. Patients blood pressure labile and SBP ranging from 130- 180. PHYSICAL EXAM: VITAL SIGNS: Reviewed. GENERAL: Well-developed in no acute distress. HEENT: Head is normocephalic. Pupils are equal, round. Sclerae anicteric. Mucous membranes of the mouth are moist. Neck supple. No JVD or thyromegaly LUNGS: Respirations even and unlabored. Lungs essentially clear to auscultation bilaterally. HEART: Regular rate and rhythm. S1 and S2 heard. ABDOMEN: Soft. Nondistended Tenderness noted upon palpation. EXTREMITIES: Normal range of motion. No clubbing or cyanosis. Peripheral pulses intact. No lower extremity edema NEUROLOGIC: Awake and alert. Oriented x 3. ASSESSMENT: Acute cholecystitis Sepsis, secondary to above Abnormal troponins, secondary to sepsis, no evidence of acute coronary syndrome Acute kidney injury Coronary artery disease with previous three-vessel CABG Ischemic cardiomyopathy, EF 35% Hypertension Hyperlipidemia PLAN: Continue postoperative management per general surgery Continue to monitor blood pressure Continue current cardiac medications Clonidine discontinued Continue to hold Lasix. Add HCTZ 25mg daily. Further recommendations pending patient's course Nurse practitioner note has been reviewed by physician. Signing provider agrees with the documented findings, assessment, and plan of care. Objective - Vital Signs Vital signs: Vital Signs Temp 98.6 F 10/29/22 04:00 Pulse 91 10/29/22 04:00 Resp 16 10/29/22 04:00 BP 130/83 10/29/22 04:00 Pulse Ox 98 10/29/22 04:00 FiO2 Intake & Output 10/28/22 10/29/22 10/29/22 18:59 06:59 18:59 Intake Total 598 20 Output Total 500 450 Balance 98 -430 Intake: IV 20 Invasive Line 1 10 Invasive Line 2 10 Oral 598 Output: Urine 500 450 Other: Voiding Method Indwelling Catheter Urinal # Voids 0 - Labs CBC & Chem 7: 10/29/22 06:48 10/29/22 06:48 Labs: Abnormal Lab Results - Last 24 Hours (Table) 10/28/22 10/28/22 10/28/22 Range/Units 07:12 07:12 11:01 WBC 15.6 H (3.8-10.6) k/uL RBC (4.30-5.90) m/uL Plt Count 111 L (150-450) k/uL Neutrophils # 13.6 H (1.3-7.7) k/uL Lymphocytes # 0.8 L (1.0-4.8) k/uL Sodium 135 L (137-145) mmol/L BUN 36 H (9-20) mg/dL Glucose 127 H (74-99) mg/dL POC Glucose (mg/dL) 124 H (70-110) mg/dL Calcium (8.4-10.2) mg/dL Total Protein (6.3-8.2) g/dL Albumin (3.5-5.0) g/dL 10/28/22 10/28/22 10/29/22 Range/Units 16:33 20:23 06:15 WBC (3.8-10.6) k/uL RBC (4.30-5.90) m/uL Plt Count (150-450) k/uL Neutrophils # (1.3-7.7) k/uL Lymphocytes # (1.0-4.8) k/uL Sodium (137-145) mmol/L BUN (9-20) mg/dL Glucose (74-99) mg/dL POC Glucose (mg/dL) 200 H 129 H 125 H (70-110) mg/dL Calcium (8.4-10.2) mg/dL Total Protein (6.3-8.2) g/dL Albumin (3.5-5.0) g/dL 10/29/22 10/29/22 Range/Units 06:48 06:48 WBC (3.8-10.6) k/uL RBC 4.06 L (4.30-5.90) m/uL Plt Count 110 L (150-450) k/uL Neutrophils # (1.3-7.7) k/uL Lymphocytes # (1.0-4.8) k/uL Sodium 132 L (137-145) mmol/L BUN 23 H (9-20) mg/dL Glucose 131 H (74-99) mg/dL POC Glucose (mg/dL) (70-110) mg/dL Calcium 7.7 L (8.4-10.2) mg/dL Total Protein 5.4 L (6.3-8.2) g/dL Albumin 2.9 L (3.5-5.0) g/dL
[2022-10-29 11:50] LABS: Glucose,Whole Blood 132 mg/dL (70-110)
[2022-10-29] MEDS: DEXTROSE 5%-0.45% NACL 1,000 ML IV SCH (13:19)
--- NOTE | 2022-10-29 13:42 | P.PN ---
Subjective Progress Note Date: 10/29/22 Patient seen and examined at bedside. Patient is currently tolerating diet. Abdominal pain has slightly improved. Patient denies chest pain or shortness of breath. Objective - Vital Signs Vital signs: Vital Signs Temp 97.9 F 10/29/22 11:53 Pulse 78 10/29/22 11:53 Resp 16 10/29/22 11:53 BP 160/98 10/29/22 11:53 Pulse Ox 94 L 10/29/22 11:53 FiO2 Intake & Output 10/28/22 10/29/22 10/29/22 18:59 06:59 18:59 Intake Total 598 20 118 Output Total 500 450 200 Balance 98 -430 -82 Intake: IV 20 Invasive Line 1 10 Invasive Line 2 10 Oral 598 118 Output: Urine 500 450 200 Other: Voiding Method Indwelling Catheter Urinal Urinal # Voids 0 - Exam General: [non toxic], [no distress], [appears at stated age] Derm: [warm], [dry] Head: [atraumatic], [normocephalic], [symmetric] Eyes: [EOMI], [no lid lag], [anicteric sclera] Mouth: [no lip lesion], [mucus membranes moist] Cardiovascular: [S1S2 reg], [no murmur], [positive posterior tibial pulse bilateral], Lungs: [CTA bilateral], [no rhonchi, no rales] , [no accessory muscle use] Abdominal: [soft], [ tender to palpation], [no guarding], [no appreciable organomegaly] Ext: [no gross muscle atrophy], [no edema], [no contractures] Neuro: [ CN II-XI grossly intact], [no focal neuro deficits] Psych: [Alert], [oriented], [appropriate affect] - Labs CBC & Chem 7: 10/29/22 06:48 10/29/22 06:48 Labs: Abnormal Lab Results - Last 24 Hours (Table) 10/28/22 10/28/22 10/29/22 Range/Units 16:33 20:23 06:15 RBC (4.30-5.90) m/uL Plt Count (150-450) k/uL Sodium (137-145) mmol/L BUN (9-20) mg/dL Glucose (74-99) mg/dL POC Glucose (mg/dL) 200 H 129 H 125 H (70-110) mg/dL Calcium (8.4-10.2) mg/dL Total Protein (6.3-8.2) g/dL Albumin (3.5-5.0) g/dL 10/29/22 10/29/22 10/29/22 Range/Units 06:48 06:48 11:46 RBC 4.06 L (4.30-5.90) m/uL Plt Count 110 L (150-450) k/uL Sodium 132 L (137-145) mmol/L BUN 23 H (9-20) mg/dL Glucose 131 H (74-99) mg/dL POC Glucose (mg/dL) 132 H (70-110) mg/dL Calcium 7.7 L (8.4-10.2) mg/dL Total Protein 5.4 L (6.3-8.2) g/dL Albumin 2.9 L (3.5-5.0) g/dL Assessment and Plan Assessment: Acute cholecystitis with sepsis s/p lap vikas 10/27/22 - surgery recs - compazine prn - rocephin and flagyl SHAAN, resolved -Creatinine stable from yesterday -Hyperkalemia resolved -Continue fluids but decrease rate Type II NSTEMI due to sepsis Ischemic cardimyoapthy with EF 35% - gentle IV fluids - cardio recs appreciated -Continue with Lopressor - resume ASA once okay with surgery - valsartan restarted -Check lipid profile DM II with hypoglycemia, resolved - SSI, changed accucheck to q ACHS Chronic left knee infection - resume home doxy as rocephin and flagyl will not cover MRSA. Hyperkalemia, resolved Chronic: GERD, HLD, HTN, CAD with prior CABG, BPH - patient with difficulty with ambulation at baseline per CM, consult pt/ot DVT prophylaxis: Heparin Anticipated discharge: Pending clinical course Anticipated discharge place: Pending clinical course
[2022-10-29] MEDS ORDERED: POTASSIUM CHLORIDE ER 20 MEQ TAB.ER PO STA (14:08)
--- NOTE | 2022-10-29 14:10 | P.PN ---
Subjective Progress Note Date: 10/29/22 CHIEF COMPLAINT: Cholecystitis and sepsis HISTORY OF PRESENT ILLNESS: Patient is postop day #2 status post laparoscopic cholecystectomy. Patient did have some nausea earlier. Patient did have episode of vomiting last night. He is having flatus. Pain tolerable. Afebrile. WBC 15.6-9.1 HCV 13 platelets 110 sodium 132 potassium 3.5 creatinine 0.85 Patient seen and examined with Dr. mondragon PHYSICAL EXAM: VITAL SIGNS: Reviewed. GENERAL: Well-developed in no acute distress. HEENT: No sclera icterus. Extraocular movements grossly intact. Moist buccal mucosa. Head is atraumatic, normocephalic. ABDOMEN: Soft. Nondistended. Incision sites clean dry and intact NEUROLOGIC: Alert and oriented. Cranial nerves II through XII grossly intact. ASSESSMENT: 1. Cholecystitis with sepsis status post laparoscopic cholecystectomy PLAN: -Advance diet to full liquids and advance as tolerated -Encourage patient to ambulate -Continue antibiotic -Continue antiemetics when necessary -Continue pain medication as needed -continue IV fluids -Replace potassium. Check magnesium level in a.m. -GI prophylaxis Protonix and DVT prophylaxis subcu Lovenox Physician Maintenance Chief note has been reviewed by physician. Signing provider agrees with the documented findings, assessment, and plan of care. Objective - Vital Signs Vital signs: Vital Signs Temp 97.9 F 10/29/22 11:53 Pulse 78 10/29/22 11:53 Resp 16 10/29/22 11:53 BP 160/98 10/29/22 11:53 Pulse Ox 94 L 10/29/22 11:53 FiO2 Intake & Output 10/28/22 10/29/22 10/29/22 18:59 06:59 18:59 Intake Total 598 20 118 Output Total 500 450 200 Balance 98 -430 -82 Intake: IV 20 Invasive Line 1 10 Invasive Line 2 10 Oral 598 118 Output: Urine 500 450 200 Other: Voiding Method Indwelling Catheter Urinal Urinal # Voids 0 - Labs CBC & Chem 7: 10/29/22 06:48 10/29/22 06:48 Labs: Abnormal Lab Results - Last 24 Hours (Table) 10/28/22 10/28/22 10/29/22 Range/Units 16:33 20: 06:15 RBC (4.30-5.90) m/uL Plt Count (150-450) k/uL Sodium (137-145) mmol/L BUN (9-20) mg/dL Glucose (74-99) mg/dL POC Glucose (mg/dL) 200 H 129 H 125 H (70-110) mg/dL Calcium (8.4-10.2) mg/dL Total Protein (6.3-8.2) g/dL Albumin (3.5-5.0) g/dL 10/29/22 10/29/22 10/29/22 Range/Units 06:48 06:48 11:46 RBC 4.06 L (4.30-5.90) m/uL Plt Count 110 L (150-450) k/uL Sodium 132 L (137-145) mmol/L BUN 23 H (9-20) mg/dL Glucose 131 H (74-99) mg/dL POC Glucose (mg/dL) 132 H (70-110) mg/dL Calcium 7.7 L (8.4-10.2) mg/dL Total Protein 5.4 L (6.3-8.2) g/dL Albumin 2.9 L (3.5-5.0) g/dL
[2022-10-29 17:00] LABS: Glucose,Whole Blood 147 mg/dL (70-110)
[2022-10-29] MEDS ORDERED: METOPROLOL TARTRATE 5 MG/5 ML VIAL IVP PRN (17:10)
[2022-10-29 17:39] LABS: Chol/HDL Ratio 1.92 Ratio; LDL Cholesterol,Calculated 24.4 mg/dL (0.0-131.0); VLDL Calculation 11.62 mg/dL (5.00-40.00)
[2022-10-29 20:17] LABS: Glucose,Whole Blood 151 mg/dL (70-110)
[2022-10-29] MEDS: ATORVASTATIN 80 MG TAB PO SCH (20:50)
[2022-10-29] MEDS: METOPROLOL TARTRATE 50 MG TAB PO SCH (20:50)
[2022-10-30] MEDS: DEXTROSE 5%-0.45% NACL 1,000 ML IV SCH (04:36)
[2022-10-30] MEDS: metroNIDAZOLE-NS PMX 500 MG in SALINE 1 100ML.BAG IVPB SCH ×3 (05:29→21:22)
[2022-10-30 06:17] LABS: Glucose,Whole Blood 124 mg/dL (70-110)
[2022-10-30] MEDS: INSULIN ASPART (NovoLOG) 100 UNIT/ML VIAL SQ SCH ×4 (06:24→21:28)
[2022-10-30] MEDS: PROCHLORPERAZINE INJ 10 MG/2 ML VIAL IVP PRN ×2 (06:53→15:27)
[2022-10-30] MEDS: PANTOPRAZOLE 40 MG TABLET PO SCH (07:07)
[2022-10-30 07:24] LABS: Basophils % (A) 0 %; Eosinophils # (A) 0.2 k/uL (0-0.7); Eosinophils % (A) 2 %; HCT 44.4 % (39.0-53.0); HGB 14.7 gm/dL (13.0-17.5); Lymphocytes # (A) 0.6 k/uL (1.0-4.8); Lymphocytes % (A) 7 %; MCH 32.9 pg (25.0-35.0); MCHC 33.2 g/dL (31.0-37.0); MCV 99.2 fL (80.0-100.0); Mean Platelet Volume 10.3; Monocytes # (A) 0.7 k/uL (0-1.0); Monocytes % (A) 7 %; Neutrophils # (A) 7.2 k/uL (1.3-7.7); Neutrophils % (A) 82 %; Platelet Count 113 k/uL (150-450); RBC 4.47 m/uL (4.30-5.90); RDW 12.7 % (11.5-15.5); WBC 8.8 k/uL (3.8-10.6)
[2022-10-30 07:42] LABS: ALT 36 U/L (4-49); AST 45 U/L (17-59); African American GFR (CKD) >90 (>60 ml/min/1.73 sqM); Albumin 3.4 g/dL (3.5-5.0); Alkaline Phosphatase 68 U/L (38-126); Anion Gap 5 mmol/L; Blood Urea Nitrogen 17 mg/dL (9-20); Calcium 8.2 mg/dL (8.4-10.2); Carbon Dioxide 34 mmol/L (22-30); Chloride 91 mmol/L (98-107); Glucose 125 mg/dL (74-99); Magnesium 1.7 mg/dL (1.6-2.3); Non-African American GFR(CKD) 89 (>60 ml/min/1.73 sqM); Potassium 3.6 mmol/L (3.5-5.1); Sodium 130 mmol/L (137-145); Total Bilirubin 1.3 mg/dL (0.2-1.3); Total Protein 6.2 g/dL (6.3-8.2)
[2022-10-30] MEDS: VALSARTAN 160 MG TAB PO SCH (09:41)
[2022-10-30] MEDS: DOXYCYCLINE 100 MG CAP PO SCH ×2 (09:41→21:29)
[2022-10-30] MEDS: TAMSULOSIN 0.4 MG CAP.ER.24H PO SCH (09:42)
[2022-10-30] MEDS: hydroCHLOROthiazide 25 MG TAB PO SCH (09:42)
[2022-10-30] MEDS: METOPROLOL TARTRATE 50 MG TAB PO SCH (09:42)
[2022-10-30] MEDS: HYDROcodone/APAP 5-325MG 1 EACH TAB PO PRN ×2 (09:42→21:22)
[2022-10-30] MEDS: ENOXAPARIN 40 MG/0.4 ML SYRINGE SQ SCH (09:42)
[2022-10-30] MEDS: FLUTICASONE 50MCG/SPRAY NASAL 16GM EA NOSTRIL SCH (09:43)
[2022-10-30] MEDS ORDERED: METOPROLOL TARTRATE 25 MG TAB PO SCH (09:46)
[2022-10-30] MEDS ORDERED: VALSARTAN 160 MG TAB PO STA (09:47)
--- NOTE | 2022-10-30 10:08 | P.PN ---
Subjective Progress Note Date: 10/30/22 HISTORY OF PRESENT ILLNESS: This is a 77-year-old male with a past medical history significant for coronary artery disease with previous three-vessel CABG in 2013, hypertension, and hyperlipidemia. Patient follows in the office with Dr. Batista. We have been asked to see the patient in consultation for abnormal troponins. Patient examined at the bedside in the emergency room. Patient initially presented to [facility] for chief complaint of abdominal pain and nausea and vomiting. He was transferred to [facility] for further evaluation. The patient was found to have acute cholecystitis. He is scheduled for surgical intervention today with general surgery. Patient denies chest pain or pressure. He denies shortness of breath. Vital signs are stable. He is tachycardic on bedside telemetry monitoring. * EKG reveals sinus mechanism with no signs of acute ischemia. Right bundle branch block.. * Laboratory data: WBC 15.6. Hemoglobin 16.2. Platelet count 157. Sodium 135. Potassium 4.7. BUN 50. Creatinine 1.59. Troponin 0.245. 0.234. 0.236. * Current home cardiac medications: Unknown. Patients medication list has not been updated at the time of this dictation * Patient underwent Lexiscan stress test in April 2020 revealing evidence of jennifer or inferior lateral myocardial infarction with moderate left ventricular dysfunction without any ischemia. Ejection fraction was noted to be 44% at that time. 10/28/2022 Patient is status post laparoscopic cholecystectomy. Postop day #1. Patient examined this morning at the bedside. Patient denies chest pain or pressure. He denies shortness of breath. The patient is nauseous this morning and vomiting at the time of my examination. The patient's blood pressure is eleva bernardo this morning, however he has been unable to keep down his medications. Echocardiogram completed revealing ejection fraction 35% with mild MR. 10/29/2022 Patient examined this morning at the bedside. Patient denies chest pain or pressure. Denies SOB. Patients blood pressure labile and SBP ranging from 130- 180. 10/30/2022 Patient examined this morning at the bedside. Patient denies chest pain or pressure. Denies SOB. Patient denies any further episodes of vomiting patient was hypertensive overnight with a systolic blood pressure ranging from 1 9200. He was given IV push metoprolol. The patient then became bradycardic with a heart rate in the 40s and 50s. Patient's blood pressure remains elevated this morning with a reading of 166/94. PHYSICAL EXAM: VITAL SIGNS: Reviewed. GENERAL: Well-developed in no acute distress. HEENT: Head is normocephalic. Pupils are equal, round. Sclerae anicteric. Mucous membranes of the mouth are moist. Neck supple. No JVD or thyromegaly LUNGS: Respirations even and unlabored. Lungs essentially clear to auscultation bilaterally. HEART: Regular rate and rhythm. S1 and S2 heard. ABDOMEN: Soft. Nondistended. EXTREMITIES: Normal range of motion. No clubbing or cyanosis. Peripheral pulses intact. No lower extremity edema NEUROLOGIC: Awake and alert. Oriented x 3. ASSESSMENT: Acute cholecystitis Sepsis, secondary to above Abnormal troponins, secondary to sepsis, no evidence of acute coronary syndrome Acute kidney injury Coronary artery disease with previous three-vessel CABG Ischemic cardiomyopathy, EF 35% Hypertension, uncontrolled Hyperlipidemia PLAN: Continue postoperative management per general surgery Continue to monitor blood pressure Continue current cardiac medications Increase valsartan Discontinue PRN IV push metoprolol Further recommendations pending patient's course Nurse practitioner note has been reviewed by physician. Signing provider agrees with the documented findings, assessment, and plan of care. Objective - Vital Signs Vital signs: Vital Signs Temp 97.5 F L 10/30/22 09:39 Pulse 79 10/30/22 09:39 Resp 18 10/30/22 09:39 BP 153/90 10/30/22 09:39 Pulse Ox 95 10/30/22 09:39 FiO2 Intake & Output 10/29/22 10/30/22 10/30/22 18:59 06:59 18:59 Intake Total 118 20 Output Total 1100 1900 300 Balance -982 -1880 -300 Intake: IV 20 Invasive Line 3 10 Invasive Line 4 10 Oral 118 Output: Urine 1100 1900 300 Other: Voiding Method Urinal Urinal # Voids 3 # Bowel Movements 1 - Labs CBC & Chem 7: 10/30/22 06:24 10/30/22 06:24 Labs: Abnormal Lab Results - Last 24 Hours (Table) 10/29/22 10/29/22 10/29/22 Range/Units 06:48 11:46 16:57 Plt Count (150-450) k/uL Lymphocytes # (1.0-4.8) k/uL Sodium (137-145) mmol/L Chloride (98-107) mmol/L Carbon Dioxide (22-30) mmol/L Glucose (74-99) mg/dL POC Glucose (mg/dL) 132 H 147 H (70-110) mg/dL Calcium (8.4-10.2) mg/dL Total Protein (6.3-8.2) g/dL Albumin (3.5-5.0) g/dL HDL Cholesterol 39.20 L (40.00-60.00) mg/dL 10/29/22 10/30/22 10/30/22 Range/Units 20:16 06:15 06:24 Plt Count 113 L (150-450) k/uL Lymphocytes # 0.6 L (1.0-4.8) k/uL Sodium (137-145) mmol/L Chloride (98-107) mmol/L Carbon Dioxide (22-30) mmol/L Glucose (74-99) mg/dL POC Glucose (mg/dL) 151 H 124 H (70-110) mg/dL Calcium (8.4-10.2) mg/dL Total Protein (6.3-8.2) g/dL Albumin (3.5-5.0) g/dL HDL Cholesterol (40.00-60.00) mg/dL 10/30/22 Range/Units 06:24 Plt Count (150-450) k/uL Lymphocytes # (1.0-4.8) k/uL Sodium 130 L (137-145) mmol/L Chloride 91 L (98-107) mmol/L Carbon Dioxide 34 H (22-30) mmol/L Glucose 125 H (74-99) mg/dL POC Glucose (mg/dL) (70-110) mg/dL Calcium 8.2 L (8.4-10.2) mg/dL Total Protein 6.2 L (6.3-8.2) g/dL Albumin 3.4 L (3.5-5.0) g/dL HDL Cholesterol (40.00-60.00) mg/dL
--- NOTE | 2022-10-30 10:13 | P.PN ---
Subjective Progress Note Date: 10/30/22 Hospital Course: Patient is a 77-year-old male for history of coronary artery disease status post CABG, diabetes mellitus type 2 diet controlled, hypertension, dyslipidemia, and BPH who was transferred from [facility] due to concerns for acute cholecystitis with sepsis. On arrival to the ER he was tachycardic with a pulse of 128. Laboratory analysis revealed white blood cell count 17.3, sodium 133, potassium 5.9, BUN 54, creatinine 1.76, AST 60, total bilirubin was normal. Tr oponin was mildly elevated at 0.245. He was started on Rocephin and Flagyl. Arrangements are made for admission. Cardiology and surgery were consulted. He was started on IV fluids and labs are repeated the following morning which showed normalization of his potassium at 4.7. Gallbladder ultrasound- possible slude vs small gallstones, no dilated ducts. Patient is now status post laparoscopic cholecystectomy on 10/27. Acute kidney injury resolved with IV fluids. Subjective: Patient seen and examined at bedside. No acute events overnight. He claims that he has minimal pain in his abdomen, but denies any nausea, vomiting, diarrhea, constipation. Denies any chest pain, shortness of breath. Pertinent positives and negatives as discussed above, a complete review of systems was performed and all other systems are negative. Vitals Signs Reviewed. General: nontoxic, no distress, appears at stated age Derm: warm, dry, incision sites appear clean, dry Head: atraumatic, normocephalic, symmetric Eyes: EOMI, no lid lag, anicteric sclera Mouth: no lip lesion, mucus membranes moist Cardiovascular: S1S2 reg, no murmur Lungs: CTA bilateral, no rhonchi, no rales , no accessory muscle use Abdominal: soft, nontender to palpation, no guarding, no appreciable organomegaly Ext: no gross muscle atrophy, no edema, no contractures Neuro: CN II-XI grossly intact, no focal neuro deficits Psych: Alert, oriented, appropriate affect Assessment and Plan: Acute cholecystitis with sepsis s/p lap vikas 10/27/22 - surgery recs - compazine prn - rocephin and flagyl SHAAN, resolved Hyperkalemia, resolved Mild hyponatremia -Creatinine stable from yesterday -IV fluids now discontinued Type II NSTEMI due to sepsis Ischemic cardimyoapthy with EF 35%, currently euvolemic Hypertension - cardio recs appreciated -Continue with Lopressor - resume ASA once okay with surgery - On statin - valsartan restarted - Hydrochlorothiazide added DM II with hypoglycemia, resolved - SSI, q ACHS Chronic left knee infection -On home doxycycline Chronic: GERD, HLD, HTN, CAD with prior CABG, BPH DVT prophylaxis: Heparin CODE STATUS: Full code Anticipated discharge: Pending clinical course Anticipated discharge place: Subacute rehab Objective - Vital Signs Vital signs: Vital Signs Temp 97.5 F L 10/30/22 09:39 Pulse 79 10/30/22 09:39 Resp 18 10/30/22 09:39 BP 153/90 10/30/22 09:39 Pulse Ox 95 10/30/22 09:39 FiO2 Intake & Output 10/29/22 10/30/22 10/30/22 18:59 06:59 18:59 Intake Total 118 20 Output Total 1100 1900 300 Balance -482 -2310 -300 Intake: IV 20 Invasive Line 3 10 Invasive Line 4 10 Oral 118 Output: Urine 1100 1900 300 Other: Voiding Method Urinal Urinal # Voids 3 # Bowel Movements 1 - Labs CBC & Chem 7: 10/30/22 06:24 10/30/22 06:24 Labs: Abnormal Lab Results - Last 24 Hours (Table) 10/29/22 10/29/22 10/29/22 Range/Units 06:48 11:46 16:57 Plt Count (150-450) k/uL Lymphocytes # (1.0-4.8) k/uL Sodium (137-145) mmol/L Chloride (98-107) mmol/L Carbon Dioxide (22-30) mmol/L Glucose (74-99) mg/dL POC Glucose (mg/dL) 132 H 147 H (70-110) mg/dL Calcium (8.4-10.2) mg/dL Total Protein (6.3-8.2) g/dL Albumin (3.5-5.0) g/dL HDL Cholesterol 39.20 L (40.00-60.00) mg/dL 10/29/22 10/30/22 10/30/22 Range/Units 20:16 06:15 06:24 Plt Count 113 L (150-450) k/uL Lymphocytes # 0.6 L (1.0-4.8) k/uL Sodium (137-145) mmol/L Chloride (98-107) mmol/L Carbon Dioxide (22-30) mmol/L Glucose (74-99) mg/dL POC Glucose (mg/dL) 151 H 124 H (70-110) mg/dL Calcium (8.4-10.2) mg/dL Total Protein (6.3-8.2) g/dL Albumin (3.5-5.0) g/dL HDL Cholesterol (40.00-60.00) mg/dL 10/30/22 Range/Units 06:24 Plt Count (150-450) k/uL Lymphocytes # (1.0-4.8) k/uL Sodium 130 L (137-145) mmol/L Chloride 91 L (98-107) mmol/L Carbon Dioxide 34 H (22-30) mmol/L Glucose 125 H (74-99) mg/dL POC Glucose (mg/dL) (70-110) mg/dL Calcium 8.2 L (8.4-10.2) mg/dL Total Protein 6.2 L (6.3-8.2) g/dL Albumin 3.4 L (3.5-5.0) g/dL HDL Cholesterol (40.00-60.00) mg/dL
[2022-10-30] MEDS ORDERED: DEXTROSE 5%-0.9% NACL 1,000 ML IV SCH (10:15)
[2022-10-30] MEDS ORDERED: MAGNESIUM SULFATE-D5W PMX 1 GM in DEXTROSE/WATER 1 100ML.BAG IVPB ONE (10:31)
--- NOTE | 2022-10-30 10:36 | P.PN ---
Subjective Progress Note Date: 10/30/22 CHIEF COMPLAINT: Cholecystitis and sepsis HISTORY OF PRESENT ILLNESS: Patient is postop day #3 status post laparoscopic cholecystectomy. Patient has had no more nausea or vomiting. He is feeling better today. Pain is tolerable. He did have a bowel movement. Afebrile. Patient did have some nausea earlier. Patient did have episode of vomiting last night. He is having flatus. Pain tolerable. He is awaiting insurance authorization for ECF placement. Afebrile. WBC is 8.8 Hgb 14.7 platelets 113 sodium 1:30 potassium 3.6 creatinine 0.77 magnesium 1.7 total bili 1.3 AST 45 ALT 36 alk phos 68 Patient seen and examined with Dr. Barrington genao PHYSICAL EXAM: VITAL SIGNS: Reviewed. GENERAL: Well-developed in no acute distress. HEENT: No sclera icterus. Extraocular movements grossly intact. Moist buccal mucosa. Head is atraumatic, normocephalic. ABDOMEN: Soft. Nondistended. Incision sites clean dry and intact NEUROLOGIC: Alert and oriented. Cranial nerves II through XII grossly intact. ASSESSMENT: 1. Acute Cholecystitis with sepsis status post laparoscopic cholecystectomy 2. Hypomagnesemia 3. Hypokalemia improved PLAN: -Patient can be discharged from surgical standpoint -Advance diet to regular -Replace magnesium -No antibiotics needed at discharge from surgical standpoint -Encourage patient to ambulate -Continue antiemetics when necessary -Continue pain medication as needed -GI prophylaxis Protonix and DVT prophylaxis subcu Lovenox Physician Product Support Sales Representative note has been reviewed by physician. Signing provider agrees with the documented findings, assessment, and plan of care. Objective - Vital Signs Vital signs: Vital Signs Temp 97.5 F L 10/30/22 09:39 Pulse 79 10/30/22 09:39 Resp 18 10/30/22 09:39 BP 153/90 10/30/22 09:39 Pulse Ox 95 10/30/22 09:39 FiO2 Intake & Output 10/29/22 10/30/22 10/30/22 18:59 06:59 18:59 Intake Total 118 20 Output Total 1100 1900 300 Balance -962 -7993 -300 Intake: IV 20 Invasive Line 3 10 Invasive Line 4 10 Oral 118 Output: Urine 1100 1900 300 Other: Voiding Method Urinal Urinal # Voids 3 # Bowel Movements 1 - Labs CBC & Chem 7: 10/30/22 06:24 10/30/22 06:24 Labs: Abnormal Lab Results - Last 24 Hours (Table) 10/29/22 10/29/22 10/29/22 Range/Units 06:48 11:46 16:57 Plt Count (150-450) k/uL Lymphocytes # (1.0-4.8) k/uL Sodium (137-145) mmol/L Chloride (98-107) mmol/L Carbon Dioxide (22-30) mmol/L Glucose (74-99) mg/dL POC Glucose (mg/dL) 132 H 147 H (70-110) mg/dL Calcium (8.4-10.2) mg/dL Total Protein (6.3-8.2) g/dL Albumin (3.5-5.0) g/dL HDL Cholesterol 39.20 L (40.00-60.00) mg/dL 10/29/22 10/30/22 10/30/22 Range/Units 20:16 06:15 06:24 Plt Count 113 L (150-450) k/uL Lymphocytes # 0.6 L (1.0-4.8) k/uL Sodium (137-145) mmol/L Chloride (98-107) mmol/L Carbon Dioxide (22-30) mmol/L Glucose (74-99) mg/dL POC Glucose (mg/dL) 151 H 124 H (70-110) mg/dL Calcium (8.4-10.2) mg/dL Total Protein (6.3-8.2) g/dL Albumin (3.5-5.0) g/dL HDL Cholesterol (40.00-60.00) mg/dL 10/30/22 Range/Units 06:24 Plt Count (150-450) k/uL Lymphocytes # (1.0-4.8) k/uL Sodium 130 L (137-145) mmol/L Chloride 91 L (98-107) mmol/L Carbon Dioxide 34 H (22-30) mmol/L Glucose 125 H (74-99) mg/dL POC Glucose (mg/dL) (70-110) mg/dL Calcium 8.2 L (8.4-10.2) mg/dL Total Protein 6.2 L (6.3-8.2) g/dL Albumin 3.4 L (3.5-5.0) g/dL HDL Cholesterol (40.00-60.00) mg/dL
[2022-10-30 11:45] LABS: Glucose,Whole Blood 128 mg/dL (70-110)
[2022-10-30 16:49] LABS: Glucose,Whole Blood 143 mg/dL (70-110)
[2022-10-30 20:19] LABS: Glucose,Whole Blood 113 mg/dL (70-110)
[2022-10-30] MEDS: METOPROLOL TARTRATE 25 MG TAB PO SCH (21:22)
[2022-10-30] MEDS: ATORVASTATIN 80 MG TAB PO SCH (21:22)
[2022-10-31] MEDS: PROCHLORPERAZINE INJ 10 MG/2 ML VIAL IVP PRN (02:33)
[2022-10-31] MEDS: metroNIDAZOLE-NS PMX 500 MG in SALINE 1 100ML.BAG IVPB SCH ×3 (04:51→21:39)
[2022-10-31 06:03] LABS: Glucose,Whole Blood 148 mg/dL (70-110)
[2022-10-31] MEDS: INSULIN ASPART (NovoLOG) 100 UNIT/ML VIAL SQ SCH ×4 (07:20→20:27)
[2022-10-31 09:01] LABS: African American GFR (CKD) >90 (>60 ml/min/1.73 sqM); Anion Gap 7 mmol/L; Blood Urea Nitrogen 20 mg/dL (9-20); Calcium 8.2 mg/dL (8.4-10.2); Carbon Dioxide 29 mmol/L (22-30); Chloride 93 mmol/L (98-107); Glucose 101 mg/dL (74-99); Non-African American GFR(CKD) >90 (>60 ml/min/1.73 sqM); Potassium 3.5 mmol/L (3.5-5.1); Sodium 129 mmol/L (137-145)
[2022-10-31] MEDS: METOPROLOL TARTRATE 25 MG TAB PO SCH (10:11)
[2022-10-31] MEDS: VALSARTAN 160 MG TAB PO SCH (10:11)
[2022-10-31] MEDS: TAMSULOSIN 0.4 MG CAP.ER.24H PO SCH (10:12)
[2022-10-31] MEDS: DOXYCYCLINE 100 MG CAP PO SCH ×2 (10:12→21:27)
[2022-10-31] MEDS: FLUTICASONE 50MCG/SPRAY NASAL 16GM EA NOSTRIL SCH (10:12)
[2022-10-31] MEDS: hydroCHLOROthiazide 25 MG TAB PO SCH (10:12)
[2022-10-31] MEDS: PANTOPRAZOLE 40 MG TABLET PO SCH (10:12)
[2022-10-31] MEDS: ENOXAPARIN 40 MG/0.4 ML SYRINGE SQ SCH (10:12)
--- NOTE | 2022-10-31 10:50 | P.PN ---
Subjective Progress Note Date: 10/31/22 PROGRESS NOTE The patient is a 77-year-old male, history of CAD, status post cholecystectomy, history of hypertension. He's feeling better overall. He has evidence of ischemic cardiomyopathy. He denies any chest discomfort, nausea or vomiting. He did not ambulate yet this morning. He denies any dizziness or palpitations. His blood pressure has been elevated. He continues to be in sinus mechanism. Medications: Lipitor 80 mg daily, hydrochlorothiazide 25 mg daily, metoprolol tartrate 25 mg twice a day, valsartan 320 mg daily PHYSICAL EXAMINATION: Blood pressure 139/80 heart rate 82 LUNGS: Clear to auscultation HEART: Regular rate and rhythm, S1, S2. No S3. systolic ejection murmur ABDOMEN: Soft, nontender, no organomegaly EXTREMETIES: No edema LAB: Potassium 3.5, BUN 20, creatinine 0.7 IMPRESSION: 1. Status post cholecystectomy 2. Status post CABG 3. Ischemic cardiomyopathy 4. Hypertension PLAN: 1. Changed to metoprolol succinate 2. Increase physical activity 3. Probable discharge home today 4. And follow-up as an outpatient with Dr. Batista Objective - Vital Signs Vital signs: Vital Signs Temp 97.3 F L 10/31/22 10:16 Pulse 82 10/31/22 10:16 Resp 16 10/31/22 10:16 BP 139/80 10/31/22 10:16 Pulse Ox 97 10/31/22 10:16 FiO2 Intake & Output 10/30/22 10/31/22 10/31/22 18:59 06:59 18:59 Intake Total 222 Output Total 620 700 Balance -493 -289 Intake: Oral 222 Output: Urine 620 700 Other: Voiding Method Urinal Urinal - Labs CBC & Chem 7: 10/30/22 06:24 10/31/22 07:50 Labs: Abnormal Lab Results - Last 24 Hours (Table) 10/30/22 10/30/22 10/30/22 Range/Units 11:36 16:48 20:18 Sodium (137-145) mmol/L Chloride (98-107) mmol/L Glucose (74-99) mg/dL POC Glucose (mg/dL) 128 H 143 H 113 H (70-110) mg/dL Calcium (8.4-10.2) mg/dL 10/31/22 10/31/22 Range/Units 06:01 07:50 Sodium 129 L (137-145) mmol/L Chloride 93 L (98-107) mmol/L Glucose 101 H (74-99) mg/dL POC Glucose (mg/dL) 148 H (70-110) mg/dL Calcium 8.2 L (8.4-10.2) mg/dL
--- NOTE | 2022-10-31 11:18 | P.PN ---
Subjective Progress Note Date: 10/31/22 Principal diagnosis: Cholecystitis Patient complaining of some nausea last night but better this morning. No vomiting. Mild discomfort. He is on a regular diet but his appetite is diminished. Objective - Vital Signs Vital signs: Vital Signs Temp 97.3 F L 10/31/22 10:16 Pulse 82 10/31/22 10:16 Resp 16 10/31/22 10:16 BP 139/80 10/31/22 10:16 Pulse Ox 97 10/31/22 10:16 FiO2 Intake & Output 10/30/22 10/31/22 10/31/22 18:59 06:59 18:59 Intake Total 222 Output Total 620 700 Balance -916 -021 Intake: Oral 222 Output: Urine 620 700 Other: Voiding Method Urinal Urinal - Exam Abdomen: Soft, nondistended, incision clean and dry, mild incisional tenderness - Labs CBC & Chem 7: 10/30/22 06:24 10/31/22 07:50 Labs: Abnormal Lab Results - Last 24 Hours (Table) 10/30/22 10/30/22 10/30/22 Range/Units 11:36 16:48 20:18 Sodium (137-145) mmol/L Chloride (98-107) mmol/L Glucose (74-99) mg/dL POC Glucose (mg/dL) 128 H 143 H 113 H (70-110) mg/dL Calcium (8.4-10.2) mg/dL 10/31/22 10/31/22 Range/Units 06:01 07:50 Sodium 129 L (137-145) mmol/L Chloride 93 L (98-107) mmol/L Glucose 101 H (74-99) mg/dL POC Glucose (mg/dL) 148 H (70-110) mg/dL Calcium 8.2 L (8.4-10.2) mg/dL Assessment and Plan (1) Cholelithiasis with cholecystitis Narrative/Plan: 77-year-old male doing fairly well after recent cholecystectomy. Some ongoing nausea. Continue diet. Monitor oral intake. We'll follow. Current Visit: Yes Status: Acute Code(s): K80.10 - CALCULUS OF GALLBLADDER W CHRONIC CHOLECYST W/O OBSTRUCTION SNOMED Code(s): 368832510
[2022-10-31 11:54] LABS: Glucose,Whole Blood 130 mg/dL (70-110)
--- NOTE | 2022-10-31 12:20 | P.PN ---
Subjective Progress Note Date: 10/31/22 Hospital Course: Patient is a 77-year-old male for history of coronary artery disease status post CABG, diabetes mellitus type 2 diet controlled, hypertension, dyslipidemia, and BPH who was transferred from [facility] due to concerns for acute cholecystitis with sepsis. On arrival to the ER he was tachycardic with a pulse of 128. Laboratory analysis revealed white blood cell count 17.3, sodium 133, potassium 5.9, BUN 54, creatinine 1.76, AST 60, total bilirubin was normal. Tr oponin was mildly elevated at 0.245. He was started on Rocephin and Flagyl. Cardiology and surgery were consulted. Gallbladder ultrasound- possible sludge vs small gallstones, no dilated ducts. Patient is now status post laparoscopic cholecystectomy on 10/27. Acute kidney injury resolved with IV fluids. Cardiology adjusting antihypertensives. Patient pending discharge to rehab. Subjective: Patient seen and examined at bedside. No acute events overnight. He claims that he has minimal discomfort in his abdomen mostly in the epigastric region. He still gets occasional nausea. Oral intake has been poor. Denies any chest pain, shortness of breath. Pertinent positives and negatives as discussed above, a complete review of systems was performed and all other systems are negative. Vitals Signs Reviewed. General: nontoxic, no distress, appears at stated age Derm: warm, dry, incision sites appear clean, dry Head: atraumatic, normocephalic, symmetric Eyes: EOMI, no lid lag, anicteric sclera Mouth: no lip lesion, mucus membranes moist Cardiovascular: S1S2 reg, no murmur Lungs: CTA bilateral, no rhonchi, no rales , no accessory muscle use Abdominal: soft, nontender to palpation, no guarding, no appreciable organomegaly Ext: no gross muscle atrophy, no edema, no contractures Neuro: CN II-XI grossly intact, no focal neuro deficits Psych: Alert, oriented, appropriate affect Assessment and Plan: Acute cholecystitis with sepsis s/p lap vikas 10/27/22 - surgery recs - compazine prn - rocephin and flagyl SHAAN, resolved Hyperkalemia, resolved Mild hyponatremia, euvolemic -Creatinine stable from yesterday -IV fluids now discontinued -if oral intake does not increase, can consider adding fluids again Type II NSTEMI due to sepsis Ischemic cardimyoapthy with EF 35%, currently euvolemic Hypertension - cardio recs appreciated -Now on metoprolol succinate - resume ASA once okay with surgery - On statin - valsartan increased - Hydrochlorothiazide added this admission DM II with hypoglycemia, resolved - SSI, q ACHS Chronic left knee infection -On home doxycycline Chronic: GERD, HLD, HTN, CAD with prior CABG, BPH DVT prophylaxis: Heparin CODE STATUS: Full code Anticipated discharge: Pending bed availability Anticipated discharge place: Subacute rehab pending insurancesc authorization Objective - Vital Signs Vital signs: Vital Signs Temp 97.3 F L 10/31/22 10:16 Pulse 82 10/31/22 10:16 Resp 16 10/31/22 10:16 BP 139/80 10/31/22 10:16 Pulse Ox 97 10/31/22 10:16 FiO2 Intake & Output 10/30/22 10/31/22 10/31/22 18:59 06:59 18:59 Intake Total 222 Output Total 620 700 Balance -425 -476 Intake: Oral 222 Output: Urine 620 700 Other: Voiding Method Urinal Urinal - Labs CBC & Chem 7: 10/30/22 06:24 10/31/22 07:50 Labs: Abnormal Lab Results - Last 24 Hours (Table) 10/30/22 10/30/22 10/31/22 Range/Units 16:48 20:18 06:01 Sodium (137-145) mmol/L Chloride (98-107) mmol/L Glucose (74-99) mg/dL POC Glucose (mg/dL) 143 H 113 H 148 H (70-110) mg/dL Calcium (8.4-10.2) mg/dL 10/31/22 10/31/22 Range/Units 07:50 11:39 Sodium 129 L (137-145) mmol/L Chloride 93 L (98-107) mmol/L Glucose 101 H (74-99) mg/dL POC Glucose (mg/dL) 130 H (70-110) mg/dL Calcium 8.2 L (8.4-10.2) mg/dL
[2022-10-31] MEDS: METOPROLOL SUCCINATE (ER) 50 MG TAB.ER.24H PO SCH (12:44)
[2022-10-31 16:45] LABS: Glucose,Whole Blood 130 mg/dL (70-110)
[2022-10-31 20:23] LABS: Glucose,Whole Blood 124 mg/dL (70-110)
[2022-10-31] MEDS: ATORVASTATIN 80 MG TAB PO SCH (20:33)
[2022-10-31] MEDS: SENNOSIDES 8.6 MG TAB PO SCH (20:33)
[2022-10-31] MEDS: HYDROcodone/APAP 5-325MG 1 EACH TAB PO PRN (23:52)
[2022-11-01] MEDS: PANTOPRAZOLE 40 MG TABLET PO SCH (06:04)
[2022-11-01] MEDS: metroNIDAZOLE-NS PMX 500 MG in SALINE 1 100ML.BAG IVPB SCH ×3 (06:05→20:46)
[2022-11-01 06:32] LABS: Glucose,Whole Blood 100 mg/dL (70-110)
[2022-11-01] MEDS: INSULIN ASPART (NovoLOG) 100 UNIT/ML VIAL SQ SCH ×4 (06:49→20:34)
[2022-11-01 09:27] LABS: ALT 53 U/L (4-49); AST 72 U/L (17-59); African American GFR (CKD) >90 (>60 ml/min/1.73 sqM); Albumin 3.5 g/dL (3.5-5.0); Alkaline Phosphatase 78 U/L (38-126); Anion Gap 9 mmol/L; Blood Urea Nitrogen 24 mg/dL (9-20); Calcium 8.4 mg/dL (8.4-10.2); Carbon Dioxide 29 mmol/L (22-30); Chloride 91 mmol/L (98-107); Glucose 106 mg/dL (74-99); Magnesium 1.8 mg/dL (1.6-2.3); Non-African American GFR(CKD) 88 (>60 ml/min/1.73 sqM); Potassium 3.5 mmol/L (3.5-5.1); Sodium 129 mmol/L (137-145); Total Bilirubin 1.5 mg/dL (0.2-1.3); Total Protein 6.4 g/dL (6.3-8.2)
[2022-11-01 09:38] LABS: Basophils # (A) 0.1 k/uL (0-0.2); Basophils % (A) 0 %; Eosinophils # (A) 0.3 k/uL (0-0.7); Eosinophils % (A) 2 %; HCT 48.7 % (39.0-53.0); HGB 16.3 gm/dL (13.0-17.5); Lymphocytes # (A) 0.9 k/uL (1.0-4.8); Lymphocytes % (A) 7 %; MCHC 33.5 g/dL (31.0-37.0); MCV 98.4 fL (80.0-100.0); Mean Platelet Volume 11.2; Monocytes # (A) 0.8 k/uL (0-1.0); Monocytes % (A) 6 %; Neutrophils # (A) 10.5 k/uL (1.3-7.7); Neutrophils % (A) 82 %; Platelet Count 123 k/uL (150-450); RBC 4.94 m/uL (4.30-5.90); RDW 12.7 % (11.5-15.5); WBC 12.8 k/uL (3.8-10.6)
[2022-11-01] MEDS: FLUTICASONE 50MCG/SPRAY NASAL 16GM EA NOSTRIL SCH (10:22)
[2022-11-01] MEDS: ENOXAPARIN 40 MG/0.4 ML SYRINGE SQ SCH (10:22)
[2022-11-01] MEDS: VALSARTAN 160 MG TAB PO SCH (10:22)
[2022-11-01] MEDS: METOPROLOL SUCCINATE (ER) 50 MG TAB.ER.24H PO SCH (10:22)
[2022-11-01] MEDS: TAMSULOSIN 0.4 MG CAP.ER.24H PO SCH (10:22)
[2022-11-01] MEDS: hydroCHLOROthiazide 25 MG TAB PO SCH (10:22)
[2022-11-01] MEDS: SENNOSIDES 8.6 MG TAB PO SCH (10:22)
[2022-11-01] MEDS: DOXYCYCLINE 100 MG CAP PO SCH ×2 (10:22→20:46)
--- NOTE | 2022-11-01 11:04 | P.PN ---
Subjective Progress Note Date: 11/01/22 Hospital Course: Patient is a 77-year-old male for history of coronary artery disease status post CABG, diabetes mellitus type 2 diet controlled, hypertension, dyslipidemia, and BPH who was transferred from [facility] due to concerns for acute cholecystitis with sepsis. On arrival to the ER he was tachycardic with a pulse of 128. Laboratory analysis revealed white blood cell count 17.3, sodium 133, potassium 5.9, BUN 54, creatinine 1.76, AST 60, total bilirubin was normal. Tr oponin was mildly elevated at 0.245. He was started on Rocephin and Flagyl. Cardiology and surgery were consulted. Gallbladder ultrasound- possible sludge vs small gallstones, no dilated ducts. Patient is now status post laparoscopic cholecystectomy on 10/27. Acute kidney injury resolved with IV fluids. Cardiology adjusting antihypertensives. Patient pending discharge to rehab. Has poor oral intake. Marinol added. Patient restarted on IV fluids. We'll try liquid supplements as patient is able to tolerate liquids. Subjective: Patient seen and examined at bedside. No acute events overnight. Oral intake has been extremely poor. Patient claims that he becomes nauseated whenever he eats food. He denies any abdominal discomfort. He is able to tolerate liquids. Pertinent positives and negatives as discussed above, a complete review of systems was performed and all other systems are negative. Vitals Signs Reviewed. General: nontoxic, no distress, appears at stated age Derm: warm, dry, incision sites appear clean, dry Head: atraumatic, normocephalic, symmetric Eyes: EOMI, no lid lag, anicteric sclera Mouth: no lip lesion, mucus membranes moist Cardiovascular: S1S2 reg, no murmur Lungs: CTA bilateral, no rhonchi, no rales , no accessory muscle use Abdominal: soft, nontender to palpation, no guarding, no appreciable organomegaly Ext: no gross muscle atrophy, no edema, no contractures Neuro: CN II-XI grossly intact, no focal neuro deficits Psych: Alert, oriented, appropriate affect Assessment and Plan: Poor oral intake -Marinol -Liquid supplements -Dietitian consult -Continue antiemetics Acute cholecystitis with sepsis s/p lap vikas 10/27/22 - surgery recs - compazine prn - rocephin and flagyl -Can consider discontinuing antibiotics on 11/03 SHAAN, resolved Hyperkalemia, resolved Mild hyponatremia, hypovolemic -Creatinine stable from yesterday -IV fluids restarted due to poor oral intake Type II NSTEMI due to sepsis Ischemic cardimyoapthy with EF 35%, not in exacerbation Hypertension - cardio recs appreciated -Now on metoprolol succinate - resume ASA once okay with surgery - On statin - valsartan increased - Hydrochlorothiazide added this admission DM II with hypoglycemia, resolved - SSI, q ACHS Chronic left knee infection -On home doxycycline Chronic: GERD, HLD, HTN, CAD with prior CABG, BPH DVT prophylaxis: Lovenox CODE STATUS: Full code Anticipated discharge: Pending bed availability Anticipated discharge place: Subacute rehab pending insurancesc authorization Objective - Vital Signs Vital signs: Vital Signs Temp 97.9 F 11/01/22 10:20 Pulse 75 11/01/22 10:20 Resp 16 11/01/22 10:20 BP 129/80 11/01/22 10:20 Pulse Ox 98 11/01/22 10:20 FiO2 Intake & Output 10/31/22 11/01/22 11/01/22 18:59 06:59 18:59 Intake Total 236 Output Total 600 950 Balance -364 -950 Intake: Oral 236 Output: Urine 600 950 Straight 600 Other: Voiding Method Urinal Urinal Urinal # Voids 1 # Bowel Movements 0 - Labs CBC & Chem 7: 11/01/22 08:40 11/01/22 08:40 Labs: Abnormal Lab Results - Last 24 Hours (Table) 10/31/22 10/31/22 10/31/22 Range/Units 11:39 16:39 20:22 WBC (3.8-10.6) k/uL Plt Count (150-450) k/uL Neutrophils # (1.3-7.7) k/uL Lymphocytes # (1.0-4.8) k/uL Sodium (137-145) mmol/L Chloride (98-107) mmol/L BUN (9-20) mg/dL Glucose (74-99) mg/dL POC Glucose (mg/dL) 130 H 130 H 124 H (70-110) mg/dL Total Bilirubin (0.2-1.3) mg/dL AST (17-59) U/L ALT (4-49) U/L 11/01/22 11/01/22 Range/Units 08:40 08:40 WBC 12.8 H (3.8-10.6) k/uL Plt Count 123 L (150-450) k/uL Neutrophils # 10.5 H (1.3-7.7) k/uL Lymphocytes # 0.9 L (1.0-4.8) k/uL Sodium 129 L (137-145) mmol/L Chloride 91 L (98-107) mmol/L BUN 24 H (9-20) mg/dL Glucose 106 H (74-99) mg/dL POC Glucose (mg/dL) (70-110) mg/dL Total Bilirubin 1.5 H (0.2-1.3) mg/dL AST 72 H (17-59) U/L ALT 53 H (4-49) U/L
[2022-11-01 11:34] LABS: Glucose,Whole Blood 105 mg/dL (70-110)
--- NOTE | 2022-11-01 11:36 | P.PN ---
Subjective Progress Note Date: 11/01/22 Principal diagnosis: Cholecystitis The patient denies pain today. Tolerating diet. No nausea or vomiting. White blood cell count 12.8. Liver enzymes slightly elevated today. Objective - Vital Signs Vital signs: Vital Signs Temp 97.9 F 11/01/22 10:20 Pulse 75 11/01/22 10:20 Resp 16 11/01/22 10:20 BP 129/80 11/01/22 10:20 Pulse Ox 98 11/01/22 10:20 FiO2 Intake & Output 10/31/22 11/01/22 11/01/22 18:59 06:59 18:59 Intake Total 236 Output Total 600 950 Balance -364 -950 Intake: Oral 236 Output: Urine 600 950 Straight 600 Other: Voiding Method Urinal Urinal Urinal # Voids 1 # Bowel Movements 0 - Exam Abdomen: Soft, nondistended, incision clean and dry, mild incisional tenderness - Labs CBC & Chem 7: 11/01/22 08:40 11/01/22 08:40 Labs: Abnormal Lab Results - Last 24 Hours (Table) 10/31/22 10/31/22 10/31/22 Range/Units 11:39 16:39 20:22 WBC (3.8-10.6) k/uL Plt Count (150-450) k/uL Neutrophils # (1.3-7.7) k/uL Lymphocytes # (1.0-4.8) k/uL Sodium (137-145) mmol/L Chloride (98-107) mmol/L BUN (9-20) mg/dL Glucose (74-99) mg/dL POC Glucose (mg/dL) 130 H 130 H 124 H (70-110) mg/dL Total Bilirubin (0.2-1.3) mg/dL AST (17-59) U/L ALT (4-49) U/L 11/01/22 11/01/22 Range/Units 08:40 08:40 WBC 12.8 H (3.8-10.6) k/uL Plt Count 123 L (150-450) k/uL Neutrophils # 10.5 H (1.3-7.7) k/uL Lymphocytes # 0.9 L (1.0-4.8) k/uL Sodium 129 L (137-145) mmol/L Chloride 91 L (98-107) mmol/L BUN 24 H (9-20) mg/dL Glucose 106 H (74-99) mg/dL POC Glucose (mg/dL) (70-110) mg/dL Total Bilirubin 1.5 H (0.2-1.3) mg/dL AST 72 H (17-59) U/L ALT 53 H (4-49) U/L Assessment and Plan (1) Cholelithiasis with cholecystitis Narrative/Plan: Continue regular diet. Monitor lab values will repeat tomorrow. Increase activity. Current Visit: Yes Status: Acute Code(s): K80.10 - CALCULUS OF GALLBLADDER W CHRONIC CHOLECYST W/O OBSTRUCTION SNOMED Code(s): 261495506
--- NOTE | 2022-11-01 11:52 | P.PN ---
Subjective Progress Note Date: 11/01/22 PROGRESS NOTE The patient is a 77-year-old male, history of CAD, status post cholecystectomy, history of hypertension. He's feeling better overall. He has evidence of ischemic cardiomyopathy. He denies any chest discomfort, nausea or vomiting. He did not ambulate yet this morning. He denies any dizziness or palpitations. His blood pressure has been elevated. He continues to be in sinus mechanism. November 01: The patient feels tired today but denies any chest discomfort or significant dyspnea. He has mild nausea. He has ambulated. He denies any dizziness or palpitations. He continues to be in sinus mechanism. Medications: Lipitor 80 mg daily, hydrochlorothiazide 25 mg daily, metoprolol succinate 50 mg daily, valsartan 320 mg daily PHYSICAL EXAMINATION: Blood pressure 129/80 heart rate 75 LUNGS: Clear to auscultation HEART: Regular rate and rhythm, S1, S2. No S3. systolic ejection murmur ABDOMEN: Soft, nontender, no organomegaly EXTREMETIES: No edema LAB: Potassium 3.5, BUN 24, creatinine 0.79 IMPRESSION: 1. Status post cholecystectomy 2. Status post CABG 3. Ischemic cardiomyopathy 4. Hypertension PLAN: 1. Start aspirin 2. Increase physical activity 3. Probable discharge home soon 4. follow-up as an outpatient with Dr. Batista Objective - Vital Signs Vital signs: Vital Signs Temp 97.9 F 11/01/22 10:20 Pulse 75 11/01/22 10:20 Resp 16 11/01/22 10:20 BP 129/80 11/01/22 10:20 Pulse Ox 98 11/01/22 10:20 FiO2 Intake & Output 10/31/22 11/01/22 11/01/22 18:59 06:59 18:59 Intake Total 236 Output Total 600 950 Balance -364 -950 Intake: Oral 236 Output: Urine 600 950 Straight 600 Other: Voiding Method Urinal Urinal Urinal # Voids 1 # Bowel Movements 0 - Labs CBC & Chem 7: 11/01/22 08:40 11/01/22 08:40 Labs: Abnormal Lab Results - Last 24 Hours (Table) 10/31/22 10/31/22 10/31/22 Range/Units 11:39 16:39 20:22 WBC (3.8-10.6) k/uL Plt Count (150-450) k/uL Neutrophils # (1.3-7.7) k/uL Lymphocytes # (1.0-4.8) k/uL Sodium (137-145) mmol/L Chloride (98-107) mmol/L BUN (9-20) mg/dL Glucose (74-99) mg/dL POC Glucose (mg/dL) 130 H 130 H 124 H (70-110) mg/dL Total Bilirubin (0.2-1.3) mg/dL AST (17-59) U/L ALT (4-49) U/L 11/01/22 11/01/22 Range/Units 08:40 08:40 WBC 12.8 H (3.8-10.6) k/uL Plt Count 123 L (150-450) k/uL Neutrophils # 10.5 H (1.3-7.7) k/uL Lymphocytes # 0.9 L (1.0-4.8) k/uL Sodium 129 L (137-145) mmol/L Chloride 91 L (98-107) mmol/L BUN 24 H (9-20) mg/dL Glucose 106 H (74-99) mg/dL POC Glucose (mg/dL) (70-110) mg/dL Total Bilirubin 1.5 H (0.2-1.3) mg/dL AST 72 H (17-59) U/L ALT 53 H (4-49) U/L
[2022-11-01] MEDS: LACTATED RINGERS 1,000 ML IV SCH ×2 (13:10→20:33)
[2022-11-01 16:25] LABS: Glucose,Whole Blood 114 mg/dL (70-110)
[2022-11-01 20:12] LABS: Glucose,Whole Blood 107 mg/dL (70-110)
[2022-11-01] MEDS: ATORVASTATIN 80 MG TAB PO SCH (20:46)
[2022-11-02] MEDS: LACTATED RINGERS 1,000 ML IV SCH ×2 (01:00→13:46)
[2022-11-02] MEDS: metroNIDAZOLE-NS PMX 500 MG in SALINE 1 100ML.BAG IVPB SCH ×3 (04:23→20:49)
[2022-11-02 06:23] LABS: Basophils % (A) 0 %; Eosinophils # (A) 0.2 k/uL (0-0.7); Eosinophils % (A) 2 %; HCT 41.9 % (39.0-53.0); HGB 14.6 gm/dL (13.0-17.5); Lymphocytes # (A) 0.6 k/uL (1.0-4.8); Lymphocytes % (A) 5 %; MCH 32.5 pg (25.0-35.0); MCHC 34.8 g/dL (31.0-37.0); Mean Platelet Volume 10.2; Monocytes # (A) 0.9 k/uL (0-1.0); Monocytes % (A) 8 %; Neutrophils # (A) 9.2 k/uL (1.3-7.7); Neutrophils % (A) 83 %; Platelet Count 132 k/uL (150-450); RBC 4.49 m/uL (4.30-5.90); RDW 12.1 % (11.5-15.5)
[2022-11-02 06:28] LABS: MCV 93.3 fL (80.0-100.0)
[2022-11-02 06:38] LABS: ALT 62 U/L (4-49); AST 75 U/L (17-59); African American GFR (CKD) >90 (>60 ml/min/1.73 sqM); Alkaline Phosphatase 68 U/L (38-126); Anion Gap 7 mmol/L; Blood Urea Nitrogen 20 mg/dL (9-20); Calcium 8.1 mg/dL (8.4-10.2); Carbon Dioxide 32 mmol/L (22-30); Chloride 91 mmol/L (98-107); Glucose 97 mg/dL (74-99); Non-African American GFR(CKD) >90 (>60 ml/min/1.73 sqM); Sodium 130 mmol/L (137-145); Total Bilirubin 1.3 mg/dL (0.2-1.3); Total Protein 5.5 g/dL (6.3-8.2)
[2022-11-02 07:20] LABS: Glucose,Whole Blood 112 mg/dL (70-110)
[2022-11-02] MEDS ORDERED: POTASSIUM CHLORIDE ER 20 MEQ TAB.ER PO STA (08:17)
[2022-11-02] MEDS: INSULIN ASPART (NovoLOG) 100 UNIT/ML VIAL SQ SCH ×4 (09:14→20:49)
[2022-11-02] MEDS: SENNOSIDES 8.6 MG TAB PO SCH (09:15)
[2022-11-02] MEDS: ENOXAPARIN 40 MG/0.4 ML SYRINGE SQ SCH (09:15)
[2022-11-02] MEDS: FLUTICASONE 50MCG/SPRAY NASAL 16GM EA NOSTRIL SCH (09:16)
[2022-11-02] MEDS: PANTOPRAZOLE 40 MG TABLET PO SCH (09:16)
[2022-11-02] MEDS: TAMSULOSIN 0.4 MG CAP.ER.24H PO SCH (09:16)
[2022-11-02] MEDS: METOPROLOL SUCCINATE (ER) 50 MG TAB.ER.24H PO SCH (09:16)
[2022-11-02] MEDS: hydroCHLOROthiazide 25 MG TAB PO SCH (09:16)
[2022-11-02] MEDS: DOXYCYCLINE 100 MG CAP PO SCH ×2 (09:16→20:49)
[2022-11-02] MEDS: ASPIRIN 81 MG PO SCH (09:16)
[2022-11-02] MEDS: VALSARTAN 160 MG TAB PO SCH (09:16)
--- NOTE | 2022-11-02 09:35 | P.PN ---
Subjective Progress Note Date: 11/02/22 HISTORY OF PRESENT ILLNESS: This is a 77-year-old male with a past medical history significant for coronary artery disease with previous three-vessel CABG in 2013, hypertension, and hyperlipidemia. Patient follows in the office with Dr. Batista. We have been asked to see the patient in consultation for abnormal troponins. Patient examined at the bedside in the emergency room. Patient initially presented to [facility] for chief complaint of abdominal pain and nausea and vomiting. He was transferred to [facility] for further evaluation. The patient was found to have acute cholecystitis. He is scheduled for surgical intervention today with general surgery. Patient denies chest pain or pressure. He denies shortness of breath. Vital signs are stable. He is tachycardic on bedside telemetry monitoring. * EKG reveals sinus mechanism with no signs of acute ischemia. Right bundle branch block.. * Laboratory data: WBC 15.6. Hemoglobin 16.2. Platelet count 157. Sodium 135. Potassium 4.7. BUN 50. Creatinine 1.59. Troponin 0.245. 0.234. 0.236. * Current home cardiac medications: Unknown. Patients medication list has not been updated at the time of this dictation * Patient underwent Lexiscan stress test in April 2020 revealing evidence of jennifer or inferior lateral myocardial infarction with moderate left ventricular dysfunction without any ischemia. Ejection fraction was noted to be 44% at that time. 10/28/2022 Patient is status post laparoscopic cholecystectomy. Postop day #1. Patient examined this morning at the bedside. Patient denies chest pain or pressure. He denies shortness of breath. The patient is nauseous this morning and vomiting at the time of my examination. The patient's blood pressure is eleva bernardo this morning, however he has been unable to keep down his medications. Echocardiogram completed revealing ejection fraction 35% with mild MR. 10/29/2022 Patient examined this morning at the bedside. Patient denies chest pain or pressure. Denies SOB. Patients blood pressure labile and SBP ranging from 130- 180. 10/30/2022 Patient examined this morning at the bedside. Patient denies chest pain or pressure. Denies SOB. Patient denies any further episodes of vomiting patient was hypertensive overnight with a systolic blood pressure ranging from 1 9200. He was given IV push metoprolol. The patient then became bradycardic with a heart rate in the 40s and 50s. Patient's blood pressure remains elevated this morning with a reading of 166/94. 11/02/2022 Patient examined this morning to bedside. Patient denies chest pain or pressure. He denies shortness of breath. Vital signs are stable. PHYSICAL EXAM: VITAL SIGNS: Reviewed. GENERAL: Well-developed in no acute distress. HEENT: Head is normocephalic. Pupils are equal, round. Sclerae anicteric. Mucous membranes of the mouth are moist. Neck supple. No JVD or thyromegaly LUNGS: Respirations even and unlabored. Lungs essentially clear to auscultation bilaterally. HEART: Regular rate and rhythm. S1 and S2 heard. ABDOMEN: Soft. Nondistended. EXTREMITIES: Normal range of motion. No clubbing or cyanosis. Peripheral pulses intact. No lower extremity edema NEUROLOGIC: Awake and alert. Oriented x 3. ASSESSMENT: Acute cholecystitis Sepsis, secondary to above Abnormal troponins, secondary to sepsis, no evidence of acute coronary syndrome Acute kidney injury Coronary artery disease with previous three-vessel CABG Ischemic cardiomyopathy, EF 35% Hypertension, uncontrolled Hyperlipidemia PLAN: Continue postoperative management per general surgery Continue current cardiac medications Discontinue IV fluids. Encourage increased oral intake No further inpatient recommendations from a cardiology standpoint We will sign off. Please reconsult if needed. Nurse practitioner note has been reviewed by physician. Signing provider agrees with the documented findings, assessment, and plan of care. Objective - Vital Signs Vital signs: Vital Signs Temp 97.6 F 11/02/22 08:00 Pulse 75 11/02/22 08:00 Resp 16 11/02/22 08:00 BP 151/89 11/02/22 08:00 Pulse Ox 92 L 11/02/22 07:37 FiO2 21 11/02/22 07:37 Intake & Output 11/01/22 11/02/22 11/02/22 18:59 06:59 18:59 Output Total 1000 2350 Balance -1000 -2350 Output: Urine 1000 2350 Straight 1000 550 Other: Voiding Method Urinal Urinal Urinal # Voids 0 # Bowel Movements 1 - Labs CBC & Chem 7: 11/02/22 05:34 11/02/22 05:34 Labs: Abnormal Lab Results - Last 24 Hours (Table) 11/01/22 11/01/22 11/02/22 Range/Units 08:40 16:24 05:34 WBC 12.8 H 11.0 H (3.8-10.6) k/uL Plt Count 123 L 132 L (150-450) k/uL Neutrophils # 10.5 H 9.2 H (1.3-7.7) k/uL Lymphocytes # 0.9 L 0.6 L (1.0-4.8) k/uL Sodium (137-145) mmol/L Potassium (3.5-5.1) mmol/L Chloride (98-107) mmol/L Carbon Dioxide (22-30) mmol/L POC Glucose (mg/dL) 114 H (70-110) mg/dL Calcium (8.4-10.2) mg/dL AST (17-59) U/L ALT (4-49) U/L Total Protein (6.3-8.2) g/dL Albumin (3.5-5.0) g/dL 11/02/22 11/02/22 Range/Units 05:34 07:18 WBC (3.8-10.6) k/uL Plt Count (150-450) k/uL Neutrophils # (1.3-7.7) k/uL Lymphocytes # (1.0-4.8) k/uL Sodium 130 L (137-145) mmol/L Potassium 3.0 L (3.5-5.1) mmol/L Chloride 91 L (98-107) mmol/L Carbon Dioxide 32 H (22-30) mmol/L POC Glucose (mg/dL) 112 H (70-110) mg/dL Calcium 8.1 L (8.4-10.2) mg/dL AST 75 H (17-59) U/L ALT 62 H (4-49) U/L Total Protein 5.5 L (6.3-8.2) g/dL Albumin 3.0 L (3.5-5.0) g/dL
--- NOTE | 2022-11-02 11:43 | P.PN ---
Subjective Progress Note Date: 11/02/22 Hospital Course: Patient is a 77-year-old male for history of coronary artery disease status post CABG, diabetes mellitus type 2 diet controlled, hypertension, dyslipidemia, and BPH who was transferred from [facility] due to concerns for acute cholecystitis with sepsis. On arrival to the ER he was tachycardic with a pulse of 128. Laboratory analysis revealed white blood cell count 17.3, sodium 133, potassium 5.9, BUN 54, creatinine 1.76, AST 60, total bilirubin was normal. Troponin was mildly elevated at 0.245. He was started on Rocephin and Flagyl. Cardiology and surgery were consulted. Gallbladder ultrasound- possible sludge vs small gallstones, no dilated ducts. Patient is now status post laparoscopic cholecystectomy on 10/27. Acute kidney injury resolved with IV fluids. Cardiology adjusted antihypertensives, Signed off. Patient continues to have nausea and vomiting, unable to tolerate any food. Has poor oral intake. Marinol started yesterday. Patient was on IV fluids. On liquid supplements as well. Subjective: Patient seen and examined at bedside. No acute events overnight. Oral intake continues to stay extremely poor. Patient claims that he becomes nauseated whenever he eats food. He denies any abdominal discomfort. Encouraged patient to take antiemetics when nauseated, and continue to work on eating. Pertinent positives and negatives as discussed above, a complete review of systems was performed and all other systems are negative. Vitals Signs Reviewed. General: nontoxic, no distress, appears at stated age Derm: warm, dry, incision sites appear clean, dry Head: atraumatic, normocephalic, symmetric Eyes: EOMI, no lid lag, anicteric sclera Mouth: no lip lesion, mucus membranes moist Cardiovascular: S1S2 reg, no murmur Lungs: CTA bilateral, no rhonchi, no rales , no accessory muscle use Abdominal: soft, nontender to palpation, no guarding, no appreciable organomegaly Ext: no gross muscle atrophy, no edema, no contractures Neuro: CN II-XI grossly intact, no focal neuro deficits Psych: Alert, oriented, appropriate affect Assessment and Plan: Poor oral intake -Marinol -Liquid supplements -Dietitian consult -Continue antiemetics Acute cholecystitis with sepsis s/p lap vikas 10/27/22 - surgery recs - compazine prn - rocephin and flagyl -Can consider discontinuing antibiotics on 11/03 SHAAN, resolved Hyperkalemia, resolved Mild hyponatremia, hypovolemic - improving -Creatinine stable from yesterday -Continue encouraging oral intake Type II NSTEMI due to sepsis Ischemic cardimyoapthy with EF 35%, not in exacerbation Hypertension - cardio recs appreciated -Now on metoprolol succinate - On aspirin and statin - valsartan increased - Hydrochlorothiazide added this admission DM II with hypoglycemia, resolved - SSI, q ACHS Chronic left knee infection -On home doxycycline Chronic: GERD, HLD, HTN, CAD with prior CABG, BPH DVT prophylaxis: Lovenox CODE STATUS: Full code Anticipated discharge: Once his nutritional needs were assessed Anticipated discharge place: Subacute rehab Objective - Vital Signs Vital signs: Vital Signs Temp 97.6 F 11/02/22 08:00 Pulse 75 11/02/22 08:00 Resp 16 11/02/22 08:00 BP 151/89 11/02/22 08:00 Pulse Ox 92 L 11/02/22 07:37 FiO2 21 11/02/22 07:37 Intake & Output 11/01/22 11/02/22 11/02/22 18:59 06:59 18:59 Output Total 1000 2350 Balance -1000 -2350 Output: Urine 1000 2350 Straight 1000 550 Other: Voiding Method Urinal Urinal Urinal # Voids 0 # Bowel Movements 1 - Labs CBC & Chem 7: 11/02/22 05:34 11/02/22 05:34 Labs: Abnormal Lab Results - Last 24 Hours (Table) 11/01/22 11/02/22 11/02/22 Range/Units 16:24 05:34 05:34 WBC 11.0 H (3.8-10.6) k/uL Plt Count 132 L (150-450) k/uL Neutrophils # 9.2 H (1.3-7.7) k/uL Lymphocytes # 0.6 L (1.0-4.8) k/uL Sodium 130 L (137-145) mmol/L Potassium 3.0 L (3.5-5.1) mmol/L Chloride 91 L (98-107) mmol/L Carbon Dioxide 32 H (22-30) mmol/L POC Glucose (mg/dL) 114 H (70-110) mg/dL Calcium 8.1 L (8.4-10.2) mg/dL AST 75 H (17-59) U/L ALT 62 H (4-49) U/L Total Protein 5.5 L (6.3-8.2) g/dL Albumin 3.0 L (3.5-5.0) g/dL 11/02/22 Range/Units 07:18 WBC (3.8-10.6) k/uL Plt Count (150-450) k/uL Neutrophils # (1.3-7.7) k/uL Lymphocytes # (1.0-4.8) k/uL Sodium (137-145) mmol/L Potassium (3.5-5.1) mmol/L Chloride (98-107) mmol/L Carbon Dioxide (22-30) mmol/L POC Glucose (mg/dL) 112 H (70-110) mg/dL Calcium (8.4-10.2) mg/dL AST (17-59) U/L ALT (4-49) U/L Total Protein (6.3-8.2) g/dL Albumin (3.5-5.0) g/dL
--- NOTE | 2022-11-02 12:04 | P.PN ---
Subjective Progress Note Date: 11/02/22 CHIEF COMPLAINT: Cholecystitis and sepsis HISTORY OF PRESENT ILLNESS: Patient is postop day #6 status post laparoscopic cholecystectomy. Patient is weak. He is requiring assistance with shower. He had a loose bowel movement. He reports that his pain is okay. No nausea or vomiting reported. Poor oral intake. Being evaluated by dietitian. He is awaiting insurance authorization for ECF placement. Afebrile. WBC is down from 12.8-11 Hgb is 14.6 platelets are 132 sodium 1:30 potassium is 3.0 creatinine 0.73 total bilirubin 1.3 AST 75 ALT 62 Patient seen and examined with Dr. Rollins PHYSICAL EXAM: VITAL SIGNS: Reviewed. GENERAL: Well-developed in no acute distress. HEENT: No sclera icterus. Extraocular movements grossly intact. Moist buccal mucosa. Head is atraumatic, normocephalic. ABDOMEN: Soft. Nondistended. Incision sites clean dry and intact NEUROLOGIC: Alert and oriented. Cranial nerves II through XII grossly intact. ASSESSMENT: 1. Acute Cholecystitis and cholelithiasis with sepsis status post laparoscopic cholecystectomy 2. Hypokalemia improved PLAN: -Continue regular diet -Encourage patient to increase activity level -Mildly elevated LFTs. Repeat labs tomorrow -Continue pain medication as needed -Potassium being replaced -Awaiting ECF placement and dietitian evaluation -GI prophylaxis Protonix and DVT prophylaxis subcu Lovenox Physician Bail Bond Agent note has been reviewed by physician. Signing provider agrees with the documented findings, assessment, and plan of care. Objective - Vital Signs Vital signs: Vital Signs Temp 97.6 F 11/02/22 08:00 Pulse 75 11/02/22 08:00 Resp 16 11/02/22 08:00 BP 151/89 11/02/22 08:00 Pulse Ox 92 L 11/02/22 07:37 FiO2 21 11/02/22 07:37 Intake & Output 11/01/22 11/02/22 11/02/22 18:59 06:59 18:59 Output Total 1000 2350 Balance -1000 -2350 Output: Urine 1000 2350 Straight 1000 550 Other: Voiding Method Urinal Urinal Urinal # Voids 0 # Bowel Movements 1 - Labs CBC & Chem 7: 11/02/22 05:34 11/02/22 05:34 Labs: Abnormal Lab Results - Last 24 Hours (Table) 11/01/22 11/02/22 11/02/22 Range/Units 16:24 05:34 05:34 WBC 11.0 H (3.8-10.6) k/uL Plt Count 132 L (150-450) k/uL Neutrophils # 9.2 H (1.3-7.7) k/uL Lymphocytes # 0.6 L (1.0-4.8) k/uL Sodium 130 L (137-145) mmol/L Potassium 3.0 L (3.5-5.1) mmol/L Chloride 91 L (98-107) mmol/L Carbon Dioxide 32 H (22-30) mmol/L POC Glucose (mg/dL) 114 H (70-110) mg/dL Calcium 8.1 L (8.4-10.2) mg/dL AST 75 H (17-59) U/L ALT 62 H (4-49) U/L Total Protein 5.5 L (6.3-8.2) g/dL Albumin 3.0 L (3.5-5.0) g/dL 11/02/22 Range/Units 07:18 WBC (3.8-10.6) k/uL Plt Count (150-450) k/uL Neutrophils # (1.3-7.7) k/uL Lymphocytes # (1.0-4.8) k/uL Sodium (137-145) mmol/L Potassium (3.5-5.1) mmol/L Chloride (98-107) mmol/L Carbon Dioxide (22-30) mmol/L POC Glucose (mg/dL) 112 H (70-110) mg/dL Calcium (8.4-10.2) mg/dL AST (17-59) U/L ALT (4-49) U/L Total Protein (6.3-8.2) g/dL Albumin (3.5-5.0) g/dL
[2022-11-02 12:15] LABS: Glucose,Whole Blood 103 mg/dL (70-110)
[2022-11-02] MEDS: PROCHLORPERAZINE INJ 10 MG/2 ML VIAL IVP PRN (12:19)
[2022-11-02 13:17] VITALS: BMI 28.1
[2022-11-02 17:27] LABS: Glucose,Whole Blood 97 mg/dL (70-110)
[2022-11-02 20:17] LABS: Glucose,Whole Blood 109 mg/dL (70-110)
[2022-11-02] MEDS: ATORVASTATIN 80 MG TAB PO SCH (20:49)
[2022-11-03] MEDS: HYDROcodone/APAP 5-325MG 1 EACH TAB PO PRN (01:26)
[2022-11-03] MEDS: metroNIDAZOLE-NS PMX 500 MG in SALINE 1 100ML.BAG IVPB SCH (04:36)
[2022-11-03 07:18] LABS: Glucose,Whole Blood 235 mg/dL (70-110)
[2022-11-03 09:15] LABS: Basophils # (A) 0.05 X 10*3/uL (0.00-0.10); Basophils % (A) 0.4 %; Eosinophils # (A) 0.25 X 10*3/uL (0.04-0.35); Eosinophils % (A) 2.2 %; HCT 43.3 % (39.6-50.0); HGB 14.7 g/dL (13.0-17.0); Immature Grans, Automated 0.4 %; Lymphocytes # (A) 1.11 X 10*3/uL (0.90-5.00); Lymphocytes % (A) 9.8 %; MCH 32.7 pg (27.0-32.0); MCHC 33.9 g/dL (32.0-37.0); MCV 96.2 fL (80.0-97.0); Mean Platelet Volume 12.3 fL (9.5-12.2); Monocytes # (A) 1.14 X 10*3/uL (0.20-1.00); NRBC Per 100 WBC 0 /100 WBCS (0.0-0.0); Neutrophils # (A) 8.78 X 10*3/uL (1.80-7.70); Neutrophils % (A) 77.2 %; Platelet Count 147 X 10*3/uL (140-440); RDW 12.3 % (11.5-14.5); WBC 11.37 X 10*3/uL (4.50-10.00)
[2022-11-03 09:34] LABS: African American GFR (CKD) 96.5 (60.0-200.0); Albumin 3.4 g/dL (3.8-4.9); Albumin/Globulin Ratio 1.62 (1.60-3.17); Anion Gap 10.9 mmol/L (10.00-18.00); BUN/Creat Ratio 18.56 Ratio (12.00-20.00); Blood Urea Nitrogen 16.7 mg/dL (9.0-27.0); Calcium 8.8 mg/dL (8.7-10.3); Carbon Dioxide 30.1 mmol/L (20.0-27.5); Globulin 2.1 g/dL (1.6-3.3); Non-African American GFR(CKD) 83.3 (60.0-200.0); Potassium 3.3 mmol/L (3.5-5.5); Total Bilirubin 0.8 mg/dL (0.30-1.20); Total Protein 5.5 g/dL (6.2-8.2)
[2022-11-03] MEDS: PANTOPRAZOLE 40 MG TABLET PO SCH (09:54)
[2022-11-03] MEDS: ENOXAPARIN 40 MG/0.4 ML SYRINGE SQ SCH (09:55)
[2022-11-03] MEDS: TAMSULOSIN 0.4 MG CAP.ER.24H PO SCH (09:55)
[2022-11-03] MEDS: ASPIRIN 81 MG PO SCH (09:55)
[2022-11-03] MEDS: hydroCHLOROthiazide 25 MG TAB PO SCH (09:56)
[2022-11-03] MEDS: SENNOSIDES 8.6 MG TAB PO SCH (09:56)
[2022-11-03] MEDS: METOPROLOL SUCCINATE (ER) 50 MG TAB.ER.24H PO SCH (09:56)
[2022-11-03] MEDS: VALSARTAN 160 MG TAB PO SCH (09:57)
[2022-11-03] MEDS: INSULIN ASPART (NovoLOG) 100 UNIT/ML VIAL SQ SCH ×4 (09:59→22:30)
[2022-11-03] MEDS ORDERED: POTASSIUM BICARBONATE/CIT AC 20 MEQ TABLET.EFF PO ONE (10:52)
[2022-11-03 11:09] LABS: Glucose,Whole Blood 88 mg/dL (70-110)
[2022-11-03] MEDS: FLUTICASONE 50MCG/SPRAY NASAL 16GM EA NOSTRIL SCH (12:49)
--- NOTE | 2022-11-03 14:11 | P.PN ---
Subjective Progress Note Date: 11/03/22 Hospital Course: Patient is a 77-year-old male for history of coronary artery disease status post CABG, diabetes mellitus type 2 diet controlled, hypertension, dyslipidemia, and BPH who was transferred from [facility] due to concerns for acute cholecystitis with sepsis. On arrival to the ER he was tachycardic with a pulse of 128. Laboratory analysis revealed white blood cell count 17.3, sodium 133, potassium 5.9, BUN 54, creatinine 1.76, AST 60, total bilirubin was normal. Troponin was mildly elevated at 0.245. He was started on Rocephin and Flagyl. Cardiology and surgery were consulted. Gallbladder ultrasound- possible sludge vs small gallstones, no dilated ducts. Patient is now status post laparoscopic cholecystectomy on 10/27. Acute kidney injury resolved with IV fluids. Cardiology adjusted antihypertensives, Signed off. Patient nausea and vomiting has improved. Currently on Marinol. Oral intake is improving. Subjective: Patient seen and examined at bedside. No acute events overnight. Oral intake is improving. Patient feels less nauseated and has less abdominal discomfort. He denies any chest pain, shortness of breath, diarrhea, constipation, or urinary complaints. Pertinent positives and negatives as discussed above, a complete review of systems was performed and all other systems are negative. Vitals Signs Reviewed. General: nontoxic, no distress, appears at stated age Derm: warm, dry, incision sites appear clean, dry Head: atraumatic, normocephalic, symmetric Eyes: EOMI, no lid lag, anicteric sclera Mouth: no lip lesion, mucus membranes moist Cardiovascular: S1S2 reg, no murmur Lungs: CTA bilateral, no rhonchi, no rales , no accessory muscle use Abdominal: soft, nontender to palpation, no guarding, no appreciable organomegaly Ext: no gross muscle atrophy, no edema, no contractures Neuro: CN II-XI grossly intact, no focal neuro deficits Psych: Alert, oriented, appropriate affect Assessment and Plan: Poor oral intake -Marinol -Liquid supplements -Dietitian consult -Continue antiemetics Acute cholecystitis with sepsis s/p lap vikas 10/27/22 - surgery recs - compazine prn - rocephin and flagyl -last day of antibiotics SHAAN, resolved Hypokalemia - replete and monitor Mild hyponatremia, hypovolemic - improving -Creatinine stable -Continue encouraging oral intake Type II NSTEMI due to sepsis Ischemic cardimyoapthy with EF 35%, not in exacerbation Hypertension - cardio recs appreciated -Now on metoprolol succinate - On aspirin and statin - valsartan increased - Hydrochlorothiazide added this admission DM II with hypoglycemia, resolved - SSI, q ACHS Chronic left knee infection -On home doxycycline Chronic: GERD, HLD, HTN, CAD with prior CABG, BPH DVT prophylaxis: Lovenox CODE STATUS: Full code Anticipated discharge: Pending bed availability/authorization at a rehab Anticipated discharge place: Subacute rehab Objective - Vital Signs Vital signs: Vital Signs Temp 98.2 F 11/03/22 12:15 Pulse 66 11/03/22 12:15 Resp 18 11/03/22 12:15 BP 134/78 11/03/22 12:15 Pulse Ox 97 11/03/22 12:15 FiO2 21 11/02/22 07:37 Intake & Output 11/02/22 11/03/22 11/03/22 18:59 06:59 18:59 Intake Total 240 Output Total 400 350 Balance -400 -110 Weight 81.647 kg Intake: Oral 240 Output: Urine 400 350 Other: Voiding Method Urinal Urinal Urinal # Voids 2 1 # Bowel Movements 2 1 - Labs CBC & Chem 7: 11/03/22 05:36 11/03/22 05:36 Labs: Abnormal Lab Results - Last 24 Hours (Table) 11/03/22 11/03/22 11/03/22 Range/Units 05:36 05:36 07:17 WBC 11.37 H (4.50-10.00) X 10*3/uL MCH 32.7 H (27.0-32.0) pg MPV 12.3 H (9.5-12.2) fL Neutrophils # 8.78 H (1.80-7.70) X 10*3/uL Monocytes # 1.14 H (0.20-1.00) X 10*3/uL Sodium 131 L (135-145) mmol/L Potassium 3.3 L (3.5-5.5) mmol/L Chloride 90 L (96-109) mmol/L Carbon Dioxide 30.1 H (20.0-27.5) mmol/L POC Glucose (mg/dL) 235 H (70-110) mg/dL AST 67 H (14-35) U/L ALT 63 H (10-49) U/L Total Protein 5.5 L (6.2-8.2) g/dL Albumin 3.4 L (3.8-4.9) g/dL
--- NOTE | 2022-11-03 15:39 | P.PN ---
Subjective Progress Note Date: 11/03/22 CHIEF COMPLAINT: Cholecystitis and sepsis HISTORY OF PRESENT ILLNESS: Patient is postop day #7 status post laparoscopic cholecystectomy. Patient sitting at bedside chair. He denies any nausea or vomiting. Denies abdominal pain. He has been having poor oral intake. Patient states that the food is too heavy for him. He is awaiting insurance authorization for ECF placement. Patient remains in the hospital due to poor oral intake. Afebrile. WBC 11.37 hemoglobin 14 platelets 147 sodium 131 potas sium 3.3 creatinine 0.9 AST down from 75-67 ALT 62-63 Patient seen and examined with Dr. Rollins PHYSICAL EXAM: VITAL SIGNS: Reviewed. GENERAL: Well-developed in no acute distress. HEENT: No sclera icterus. Extraocular movements grossly intact. Moist buccal mucosa. Head is atraumatic, normocephalic. ABDOMEN: Soft. Nondistended. Nontender Incision sites clean dry and intact NEUROLOGIC: Alert and oriented. Cranial nerves II through XII grossly intact. ASSESSMENT: 1. Acute Cholecystitis and cholelithiasis with sepsis status post laparoscopic cholecystectomy 2. Hypokalemia 3. Minimally elevated LFTs with no abdominal pain PLAN: -Continue regular diet -Encourage patient to increase activity level -Encourage patient to increase oral intake -Continue pain medication as needed -Potassium being replaced -Awaiting ECF placement -GI prophylaxis Protonix and DVT prophylaxis subcu Lovenox Physician [employer] Deputy Sheriff note has been reviewed by physician. Signing provider agrees with the documented findings, assessment, and plan of care. Objective - Vital Signs Vital signs: Vital Signs Temp 98.2 F 11/03/22 12:15 Pulse 66 11/03/22 12:15 Resp 18 11/03/22 12:15 BP 134/78 11/03/22 12:15 Pulse Ox 97 11/03/22 12:15 FiO2 21 11/02/22 07:37 Intake & Output 11/02/22 11/03/22 11/03/22 18:59 06:59 18:59 Intake Total 240 Output Total 400 350 Balance -400 -110 Weight 81.647 kg Intake: Oral 240 Output: Urine 400 350 Other: Voiding Method Urinal Urinal Urinal # Voids 2 1 # Bowel Movements 2 1 - Labs CBC & Chem 7: 11/03/22 05:36 11/03/22 05:36 Labs: Abnormal Lab Results - Last 24 Hours (Table) 11/03/22 11/03/22 11/03/22 Range/Units 05:36 05:36 07:17 WBC 11.37 H (4.50-10.00) X 10*3/uL MCH 32.7 H (27.0-32.0) pg MPV 12.3 H (9.5-12.2) fL Neutrophils # 8.78 H (1.80-7.70) X 10*3/uL Monocytes # 1.14 H (0.20-1.00) X 10*3/uL Sodium 131 L (135-145) mmol/L Potassium 3.3 L (3.5-5.5) mmol/L Chloride 90 L (96-109) mmol/L Carbon Dioxide 30.1 H (20.0-27.5) mmol/L POC Glucose (mg/dL) 235 H (70-110) mg/dL AST 67 H (14-35) U/L ALT 63 H (10-49) U/L Total Protein 5.5 L (6.2-8.2) g/dL Albumin 3.4 L (3.8-4.9) g/dL
[2022-11-03 17:05] LABS: Glucose,Whole Blood 125 mg/dL (70-110)
[2022-11-03 20:19] LABS: Glucose,Whole Blood 101 mg/dL (70-110)
[2022-11-03] MEDS: ATORVASTATIN 80 MG TAB PO SCH (21:41)
[2022-11-04] MEDS: LACTATED RINGERS 1,000 ML IV SCH (05:48)
[2022-11-04 07:05] LABS: Glucose,Whole Blood 78 mg/dL (70-110)
[2022-11-04 07:52] VITALS: RESP 18
[2022-11-04 08:08] LABS: African American GFR (CKD) >90 (>60 ml/min/1.73 sqM); Anion Gap 9 mmol/L; Blood Urea Nitrogen 18 mg/dL (9-20); Calcium 8.7 mg/dL (8.4-10.2); Carbon Dioxide 30 mmol/L (22-30); Chloride 92 mmol/L (98-107); Glucose 89 mg/dL (74-99); Non-African American GFR(CKD) 89 (>60 ml/min/1.73 sqM); Potassium 3.4 mmol/L (3.5-5.1); Sodium 131 mmol/L (137-145)
[2022-11-04] MEDS ORDERED: POTASSIUM CHLORIDE ER 20 MEQ TAB.ER PO STA (08:17)
[2022-11-04] MEDS: INSULIN ASPART (NovoLOG) 100 UNIT/ML VIAL SQ SCH ×2 (08:40→12:22)
[2022-11-04] MEDS: SENNOSIDES 8.6 MG TAB PO SCH (08:51)
[2022-11-04] MEDS: hydroCHLOROthiazide 25 MG TAB PO SCH (08:51)
[2022-11-04] MEDS: TAMSULOSIN 0.4 MG CAP.ER.24H PO SCH (08:52)
[2022-11-04] MEDS: ENOXAPARIN 40 MG/0.4 ML SYRINGE SQ SCH (08:52)
[2022-11-04] MEDS: PANTOPRAZOLE 40 MG TABLET PO SCH (08:52)
[2022-11-04] MEDS: METOPROLOL SUCCINATE (ER) 50 MG TAB.ER.24H PO SCH (08:52)
[2022-11-04] MEDS: FLUTICASONE 50MCG/SPRAY NASAL 16GM EA NOSTRIL SCH (08:52)
[2022-11-04] MEDS: ASPIRIN 81 MG PO SCH (08:52)
[2022-11-04] MEDS: VALSARTAN 160 MG TAB PO SCH (08:59)
[2022-11-04 11:10] LABS: Glucose,Whole Blood 112 mg/dL (70-110)
--- NOTE | 2022-11-04 12:26 | P.DS ---
Providers Date of admission: 10/27/22 04:04 Expected date of discharge: 11/04/22 Attending physician: Nate Orourke MD Consults: 10/27/22 04:02 Consult Physician Urgent Consulting Provider: Colby Rollins Consult Reason/Comments: Cholelithiasis Do you want consulting provider notified?: Yes Primary care physician: [facility] Course: Admitting Dx: sepsis , secondary to acute cholecystitis Discharge Dx: Poor oral intake-on marinol Acute cholecystitis with sepsis s/p lap vikas 10/27/22 SHAAN, resolved Type II NSTEMI due to sepsis Ischemic cardimyoapthy with EF 35%, not in exacerbation Hypertension DM II with hypoglycemia, resolved Chronic left knee infection GERD HLD HTN CAD with prior CABG BPH Hospital course: 77 year old male with multipl co-morbidities presents to [facility] as a transfer from [facility]. He presented there due to worsening abdominal pain RUQ 7/10 in severity , sharp in nature , associated with nausea but no vomiting, denies any GI bleeding , reports occasional diarrhea as he had the pain for about 1-2 months . with abd bloating , and discomfort after meals. He denied any chest pain or trouble breathing, denies any fever, chills. denied any cough , or URI symptoms. At [facility] , CTA of the chest showed no dissection or PE. EKG showed RBBB with tachycardia blood work showed leukocytosis , hyperkalemia , elevated trops. Patient met sepsis critertia and was started on antibiotics Gallbladder US showed multiple gall stone at the neck of the gall bladder. Physical: General: [non toxic], [no distress], [appears at stated age] Derm: [warm], [dry] Head: [atraumatic], [normocephalic], [symmetric] Eyes: [EOMI], [no lid lag], [anicteric sclera] Mouth: [no lip lesion], [mucus membranes moist] Cardiovascular: [S1S2 reg], [no murmur], [positive posterior tibial pulse bilateral], Lungs: [CTA bilateral], [no rhonchi, no rales] , [no accessory muscle use] Abdominal: [soft], [ nontender to palpation], [no guarding], [no appreciable organomegaly] Ext: [no gross muscle atrophy], [no edema], [no contractures] Neuro: [ CN II-XI grossly intact], [no focal neuro deficits] Psych: [Alert], [oriented], [appropriate affect] Clinical Assessment: Poor oral intake -Marinol -Liquid supplements -Dietitian consulted -Continue antiemetics Acute cholecystitis with sepsis s/p lap vikas 10/27/22 - surgery followed - compazine prn - rocephin and flagyl provided -last day of antibiotics SHAAN, resolved Hypokalemia - repleted and monitored Mild hyponatremia, hypovolemic - improving -Creatinine stable -Continue encouraging oral intake Type II NSTEMI due to sepsis Ischemic cardimyoapthy with EF 35%, not in exacerbation Hypertension - cardio recs appreciated -Now on metoprolol succinate - On aspirin and statin - valsartan increased - Hydrochlorothiazide added this admission DM II with hypoglycemia, resolved - SSI, q ACHS Chronic left knee infection -On home doxycycline Chronic: GERD, HLD, HTN, CAD with prior CABG, BPH Discharge: 11/04/[address]: Subacute rehab Condition: Stable Activity: As tolerated Diet: Diabetic Follow-up with PCP in 2-7 days Follow-up with surgery in 2 weeks Patient Condition at Discharge: Stable Plan - Discharge Summary Discharge Rx Participant: Yes New Discharge Prescriptions: New Valsartan [Diovan] 320 mg PO DAILY #60 tab dronabinoL [Marinol] 2.5 mg PO AC-BID 30 Days #60 cap Aspirin [Adult Low Dose Aspirin EC] 81 mg PO DAILY #30 tab Tamsulosin [Flomax] 0.4 mg PO PC-BRKFST #30 cap hydroCHLOROthiazide [Hydrodiuril] 25 mg PO DAILY 30 Days #30 tab Potassium Chloride ER [K-Dur 20] 20 meq PO DAILY #30 tab Sennosides [Senokot] 8.6 mg PO DAILY #30 tab Metoprolol Succinate (ER) [Toprol XL] 50 mg PO DAILY #30 tab HYDROcodone/APAP 5-325MG [Arcadia 5-325] 2 tab PO Q6HR PRN 4 Days #30 tab PRN Reason: Pain Continue Meloxicam [Mobic] 15 mg PO DAILY Atorvastatin [Lipitor] 80 mg PO HS Pantoprazole Sodium [Protonix] 40 mg PO DAILY Niacin [Niaspan] 500 mg PO HS Fluticasone Nasal Mobile [Flonase Nasal Mobile] 2 spr EA NOSTRIL DAILY SILVER sulfADIAZINE CREAM [Silvadene Cream] 0.25 inch TOPICAL BID Discontinued Metoprolol Tartrate [Lopressor] 25 mg PO BID Doxycycline Hyclate 100 mg PO BID Acetaminophen-Codeine 300-30mg [Tylenol w/codeine #3] 1 tab PO Q4-6H PRN PRN Reason: Pain Potassium Chloride ER [K-Dur 10] 10 meq PO DAILY Furosemide [Lasix] 20 mg PO DAILY cloNIDine HCL [Catapres] 0.2 mg PO BID Valsartan 160 mg PO DAILY Discharge Medication List Atorvastatin [Lipitor] 80 mg PO HS 06/24/18 [History] Meloxicam [Mobic] 15 mg PO DAILY 06/24/18 [History] Niacin [Niaspan] 500 mg PO HS 06/24/18 [History] Pantoprazole Sodium [Protonix] 40 mg PO DAILY 06/24/18 [History] Fluticasone Nasal Mobile [Flonase Nasal Mobile] 2 spr EA NOSTRIL DAILY 01/22/20 [History] SILVER sulfADIAZINE CREAM [Silvadene Cream] 0.25 inch TOPICAL BID 10/27/22 [History] Aspirin [Adult Low Dose Aspirin EC] 81 mg PO DAILY #30 tab 11/04/22 [Rx] HYDROcodone/APAP 5-325MG [Arcadia 5-325] 2 tab PO Q6HR PRN 4 Days #30 tab 11/04/22 [Rx] Metoprolol Succinate (ER) [Toprol XL] 50 mg PO DAILY #30 tab 11/04/22 [Rx] Potassium Chloride ER [K-Dur 20] 20 meq PO DAILY #30 tab 11/04/22 [Rx] Sennosides [Senokot] 8.6 mg PO DAILY #30 tab 11/04/22 [Rx] Tamsulosin [Flomax] 0.4 mg PO PC-BRKFST #30 cap 11/04/22 [Rx] Valsartan [Diovan] 320 mg PO DAILY #60 tab 11/04/22 [Rx] dronabinoL [Marinol] 2.5 mg PO AC-BID 30 Days #60 cap 11/04/22 [Rx] hydroCHLOROthiazide [Hydrodiuril] 25 mg PO DAILY 30 Days #30 tab 11/04/22 [Rx] Follow up Appointment(s)/Referral(s): Kev Hammond MD [Primary Care Provider] - 1-2 days Bin Batista MD [STAFF PHYSICIAN] - 1 Week Discharge Disposition: TRANSFER TO SNF/ECF
--- NOTE | 2022-11-04 12:32 | P.PN ---
Subjective Progress Note Date: 11/04/22 CHIEF COMPLAINT: Cholecystitis and sepsis HISTORY OF PRESENT ILLNESS: Patient is postop day #8 status post laparoscopic cholecystectomy. Patient sitting at bedside chair. Patient denies any abdominal pain. He did eat a few bites of his breakfast and did drink his milk. He occasionally has some nausea. No vomiting today. He is being discharged today to [facility]. Afebrile Patient seen and examined with Dr. Rollins PHYSICAL EXAM: VITAL SIGNS: Reviewed. GENERAL: Well-developed in no acute distress. HEENT: No sclera icterus. Extraocular movements grossly intact. Moist buccal mucosa. Head is atraumatic, normocephalic. ABDOMEN: Soft. Nondistended. Nontender Incision sites clean dry and intact NEUROLOGIC: Alert and oriented. Cranial nerves II through XII grossly intact. ASSESSMENT: 1. Acute Cholecystitis and cholelithiasis with sepsis status post laparoscopic cholecystectomy 2. Hypokalemia 3. Minimally elevated LFTs with no abdominal pain PLAN: -Patient can be discharged from surgical standpoint -Continue regular diet -Encourage patient to increase activity level -Encourage patient to increase oral intake -Continue pain medication as needed -Potassium being replaced -GI prophylaxis Protonix and DVT prophylaxis subcu Lovenox Physician Radiology Ct Technologist note has been reviewed by physician. Signing provider agrees with the documented findings, assessment, and plan of care. Objective - Vital Signs Vital signs: Vital Signs Temp 97.4 F L 11/04/22 07:04 Pulse 71 11/04/22 08:30 Resp 18 11/04/22 08:30 BP 164/81 11/04/22 07:04 Pulse Ox 94 L 11/04/22 11:40 FiO2 21 11/02/22 07:37 Intake & Output 11/03/22 11/04/22 11/04/22 18:59 06:59 18:59 Intake Total 240 590 Output Total 600 Balance -360 590 Intake: Oral 240 590 Output: Urine 600 Other: Voiding Method Urinal Urinal Urinal # Voids 1 2 1 # Bowel Movements 1 0 1 - Labs CBC & Chem 7: 11/03/22 05:36 11/04/22 06:56 Labs: Abnormal Lab Results - Last 24 Hours (Table) 11/03/22 11/04/22 11/04/22 Range/Units 17:04 06:56 11:08 Sodium 131 L (137-145) mmol/L Potassium 3.4 L (3.5-5.1) mmol/L Chloride 92 L (98-107) mmol/L POC Glucose (mg/dL) 125 H 112 H (70-110) mg/dL
[2022-11-04 12:56] VITALS: BP 99/60; PULSE 74; TEMP 98
[2022-11-05] MEDS ORDERED: POTASSIUM CHLORIDE ER 20 MEQ TAB.ER PO SCH (09:00)
== END 2022-11-04 16:22 | DRG 853 ==
LOC: EC 00:46 → 4SSUR 04:04 → 3SCARD 06:42 → 5NMEDONC 11-02 03:34
PROVIDERS: ADMIT Internal Medicine; ATTEND Internal Medicine
PROC: 0FT44ZZ Resection of Gallbladder, Percutaneous Endoscopic Approach (ICD-10-PCS; principal; 2022-10-27 13:05)
DX: A41.9 Sepsis, unspecified organism (principal); I21.A1 Myocardial infarction type 2; E87.1 Hypo-osmolality and hyponatremia; K80.12 Calculus of gallbladder with acute and chronic cholecystitis without obstruction; M00.9 Pyogenic arthritis, unspecified; E11.649 Type 2 diabetes mellitus with hypoglycemia without coma; E78.5 Hyperlipidemia, unspecified; E83.42 Hypomagnesemia; E86.1 Hypovolemia; E87.5 Hyperkalemia; E87.6 Hypokalemia; I10 Essential (primary) hypertension; N40.0 Benign prostatic hyperplasia without lower urinary tract symptoms; I25.10 Atherosclerotic heart disease of native coronary artery without angina pectoris; I25.2 Old myocardial infarction; I25.5 Ischemic cardiomyopathy; I45.10 Unspecified right bundle-branch block; K21.9 Gastro-esophageal reflux disease without esophagitis; Z96.641 Presence of right artificial hip joint; Z96.652 Presence of left artificial knee joint; Z82.49 Family history of ischemic heart disease and other diseases of the circulatory system; Z95.1 Presence of aortocoronary bypass graft; Z79.82 Long term (current) use of aspirin; Z79.4 Long term (current) use of insulin; Z79.1 Long term (current) use of non-steroidal anti-inflammatories (NSAID); Z79.899 Other long term (current) drug therapy
CPT/HCPCS: 36415; 76705; 80048; 80053; 80061; 83036; 83605; 83735; 84484; 85025; 85027; 88304; 93306; 94760; 96361; 96365; 96372; 96375; 96376; 99285

== ENCOUNTER 2025-04-17 06:59 | Day surgery (SDC) | payer MEDICARE ==
[2025-04-13 15:25] VITALS: BMI 27.8
[~2025-04-17 06:59] MED LIST changes: -GENTAMICIN IN NACL ISO-OSM PMX 80 MG in SALINE 1 100ML.BAG IVPB ONE; -LACTATED RINGERS 1,000 ML IV SCH; +VANCOMYCIN IV PER PHARMACY 1 EACH MISC MISCELLANE PRN; -ceFAZolin IN SWFI 2 GM/20 ML SYRINGE IVP ONE
[2025-04-17] MEDS: SODIUM CHLORIDE 0.9% 1,000 ML IV SCH ×2 (07:46→07:47)
[2025-04-17] MEDS: VANCOMYCIN 1,250 MG in SODIUM CHLORIDE 0.9% 250 ML IVPB PRN (07:47)
[2025-04-17] MEDS: LACTATED RINGERS 1,000 ML IV SCH (07:47)
[2025-04-17 07:55] LABS: Basophils # (A) 0.07 10*3/uL (0.00-0.10); Basophils % (A) 0.8 %; Eosinophils # (A) 0.19 10*3/uL (0.04-0.35); Eosinophils % (A) 2.3 %; HCT 39.8 % (39.6-50.0); HGB 13.5 g/dL (13.0-17.0); Lymphocytes # (A) 1.32 10*3/uL (0.90-5.00); Lymphocytes % (A) 16.0 %; MCH 32.9 pg (27.0-32.0); MCHC 33.9 g/dL (32.0-37.0); MCV 97.1 fL (80.0-97.0); Monocytes # (A) 0.65 10*3/uL (0.20-1.00); Monocytes % (A) 7.9 %; Neutrophils # (A) 6.00 10*3/uL (1.80-7.70); Neutrophils % (A) 72.8 %; Platelet Count 189 10*3/uL (140-440); RBC 4.10 10*6/uL (4.40-5.60); RDW 12.7 % (11.5-14.5); WBC 8.25 10*3/uL (4.50-10.00)
[2025-04-17] MEDS: IV FLUID CONTINUATION 1,000 ML IV ONE (08:05)
[2025-04-17 08:17] LABS: African American GFR (CKD) 55 (>60 ml/min/1.73 sqM); Anion Gap 6 mmol/L; Blood Urea Nitrogen 32 mg/dL (9-20); Calcium 9.2 mg/dL (8.4-10.2); Carbon Dioxide 27 mmol/L (22-30); Chloride 105 mmol/L (98-107); Glucose 121 mg/dL (74-99); Non-African American GFR(CKD) 48 (>60 ml/min/1.73 sqM); Potassium 4.8 mmol/L (3.5-5.1); Sodium 138 mmol/L (137-145)
[2025-04-17] MEDS ORDERED: fentaNYL (PF) 50 MCG/ML 2 ML AMP ONE (11:14)
[2025-04-17] MEDS ORDERED: MIDAZOLAM 2 MG/2 ML VIAL ONE (11:14)
[2025-04-17] MEDS: IOPAMIDOL-300 100ML BTL INJ ONE (11:53)
[2025-04-17] MEDS: ROPIVACAINE 5 MG/ML 30 ML VIAL MISCELLANE ONE (12:17)
[2025-04-17] MEDS: LIDOCAINE 1% INJ 10MG/ML (20 ML MDV) SQ ONE (12:17)
[2025-04-17] MEDS: ceFAZolin 1 GM in SODIUM CHLORIDE 0.9% IRRIG BTL 250 ML IRRIGATION PRN (12:21)
[2025-04-17] MEDS: HEPARIN SODIUM,PORCINE (1 ML) 2,500 UNIT in SODIUM CHLORIDE 0.9% 250 ML IRRIGATION ONE (12:21)
[2025-04-17] MEDS: PRAVASTATIN SODIUM 20 MG TAB PO SCH (17:21)
[2025-04-17] MEDS: MAGNESIUM OXIDE 400 MG TAB PO SCH (20:16)
[2025-04-17] MEDS: APIXABAN 2.5 MG TABLET PO SCH (20:16)
--- NOTE | 2025-04-18 07:52 | XR ---
EXAMINATION TYPE: XR chest 2V DATE OF EXAM: 04/18/2025 7:40 AM COMPARISON: Chest radiographs from 07/03/2020. CLINICAL INDICATION: Male, 80 years old with history of Check lead placement post ICD insertion on ; [facility] TECHNIQUE: XR chest 2V Frontal and lateral views of the chest. FINDINGS: Lungs/Pleura: There is no evidence of pleural effusion, focal consolidation, or pneumothorax. Pulmonary vascularity: Unremarkable. Heart/mediastinum: Cardiomediastinal silhouette is enlarged. Two lead cardiac conduction device overl chi the left hemithorax with lead tips projecting over the right ventricle and right atrium. Musculoskeletal: No acute osseous pathology. Midline sternotomy wires are noted. Other findings: None IMPRESSION: No acute cardiopulmonary disease/process. [facility], , 04/18/2025 7:50 AM
[2025-04-18 08:02] VITALS: BP 158/86; PULSE 76; RESP 16; TEMP 97.6
[2025-04-18] MEDS: ASPIRIN 81 MG PO SCH (09:09)
[2025-04-18] MEDS: VALSARTAN 160 MG TAB PO SCH (09:10)
[2025-04-18] MEDS: EZETIMIBE 10 MG TAB PO SCH (09:10)
[2025-04-18] MEDS: PANTOPRAZOLE 40 MG TABLET PO SCH (09:15)
--- NOTE | 2025-04-23 11:08 | P.EPPROC ---
- EP Procedure Note Electrophysiology Procedure Note: Diagnosis Ischemic cardiomyopathy, old inferior lateral SC, left ventricular ejection fraction 35% despite medical treatment CHF class II Right bundle branch block pattern on twelve-lead EKG with a mildly prolonged CA interval noted on EKGs in the office Initial decision for a primary prevention ICD was based on a mildly prolonged CA interval, ischemic cardiomyopathy ejection fraction 35% on guideline directed medical treatment. A single-chamber ICD was planned initially However when patient came to the EP lab and was put on the EP recording system, is twelve-lead EKG showed right bundle branch block pattern with a very prolonged CA interval of greater than 300 ms. This CA interval is longer than was previously measured Intraoperatively first dual-chamber ICD was considered but with atrial pacing at 100 beats a minute 2-1 AV block was noted as well as of the single-chamber ICD patient is at risk for substantial RV pacing Therefore with dual-chamber ICD and with a single-chamber ICD, patient is at risk for substantial RV pacing greater than 50% Therefore a decision was made to proceed with a biventricular ICD implant to avoid RV pacing in the setting of systolic heart failure with ejection fraction of 35% Details Patient was brought to the EP lab in a fasting state IV vancomycin given since he has a history of osteomyelitis, chronic. IV Kefzol given Left upper extremity venogram performed. 15 cc IV dye injected in the left arm and a patent left subclavian system noted The left pectoral area was prepped and draped as a protocol. Local anesthesia given. A 4 cm incision was made parallel to the deltopectoral groove about 1.5 cm medial to it. The incision was carried down to the level of the pectoralis muscle. A subfascial pocket was made. Venous access was obtained. A single coil ICD lead was placed in the right ventricle An atrial lead was placed in the right atrial appendage. Atrial pacing was performed at 100 beats a minute resulting in 2-1 heart block Therefore since the patient's CA intervalhere in the EP lab was greater than 300 ms and with minimal atrial pacing had a 2-1 heart block response, he would pace his right ventricle substantially greater than 50% resulting in worsening of heart failure status Therefore a decision was made to implant a conduction system pacing lead, to avoid RV pacing Medtronic model #3830 was implanted and left bundle pacing was successfully performed. QR pattern noted with pacing. Peak activation time in lead I was 71 ms Peak activation time in lead V6 was 82 ms Excellent threshold of 0.5 V at 0.5 ms in the unipolar mode. Pace impedance 580 ohms The RV threshold was 0.5 V at 0.5 ms, R wave 7.3 mV and pace impedance of 590 ohms. An OPTi sure ICD lead 58 cm placed in the right ventricle in good position The atrial threshold was 0.75 V at 0.5 ms, P waves 3.4 mV and pacing impedance 410 ohms. An Ultipace 52 cm atrial lead position of the right atrial appendage in stable position Tillman heart failure Hernandez ICD was implanted and secured to the pectoralis muscle. Connected to the leads. Thresholds stable lead function normal Antibiotic pouch placed Device programmed with an LV RV offset of 80 ms, to avoid RV pacing DDDR 60-130 bpm Appropriate antitachycardia pacing cardioversion and defibrillation programmed DFT deferred at this time Plan further maximize beta-blockers for heart failure management
--- NOTE | 2025-04-23 11:08 | P.DS ---
Providers Attending physician: Jean-Pierre Lane Primary care physician: [facility] Course: Discharge summary Patient is doing well postprocedure. 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 Risk of substantial RV pacing with dual-chamber ICD A biventricular ICD was implanted to avoid RV pacing in the setting of severe LV dysfunction ICD site has healed well Device is functioning normally Plan Maximize heart failure medications including beta-blockers Switch to carvedilol 12.5 mg twice daily Continue aspirin valsartan statins Zetia Plan - Discharge Summary Discharge Rx Participant: No New Discharge Prescriptions: New Pravastatin Sodium [Pravachol] 10 mg PO DAILY #90 tab carvediloL [Coreg*] 12.5 mg PO BID #180 tablet Discontinued Metoprolol Tartrate 12.5 mg PO BID amLODIPine BESYLATE 5 mg PO DAILY No Action Niacin [Niaspan] 500 mg PO DAILY Aspirin [Adult Low Dose Aspirin EC] 81 mg PO DAILY Magnesium Oxide [Magox 400] 400 mg PO BID Nitroglycerin Sl Tabs [Nitrostat] 0.4 mg SUBLINGUAL Q5M PRN PRN Reason: Chest Pain Apixaban [Eliquis] 2.5 mg PO BID Valsartan 160 mg PO DAILY Albuterol Sulfate [Albuterol Sulfate Hfa] 2 puff INHALATION QID PRN PRN Reason: Shortness Of Breath Pantoprazole [Protonix] 40 mg PO DAILY Ezetimibe [Zetia] 10 mg PO DAILY Doxycycline Hyclate 100 mg PO BID Dicyclomine [Bentyl] 20 mg PO TID Cephalexin [Keflex] 2,000 mg PO ONCE PRN PRN Reason: Prior to dental work Discharge Medication List Niacin [Niaspan] 500 mg PO DAILY 06/24/18 [History] Aspirin [Adult Low Dose Aspirin EC] 81 mg PO DAILY 11/18/22 [History] Albuterol Sulfate [Albuterol Sulfate Hfa] 2 puff INHALATION QID PRN 04/13/25 [History] Apixaban [Eliquis] 2.5 mg PO BID 04/13/25 [History] Cephalexin [Keflex] 2,000 mg PO ONCE PRN 04/13/25 [History] Dicyclomine [Bentyl] 20 mg PO TID 04/13/25 [History] Doxycycline Hyclate 100 mg PO BID 04/13/25 [History] Ezetimibe [Zetia] 10 mg PO DAILY 04/13/25 [History] Magnesium Oxide [Magox 400] 400 mg PO BID 04/13/25 [History] Nitroglycerin Sl Tabs [Nitrostat] 0.4 mg SUBLINGUAL Q5M PRN 04/13/25 [History] Pantoprazole [Protonix] 40 mg PO DAILY 04/13/25 [History] Valsartan 160 mg PO DAILY 04/13/25 [History] Pravastatin Sodium [Pravachol] 10 mg PO DAILY #90 tab 04/17/25 [Rx] carvediloL [Coreg*] 12.5 mg PO BID #180 tablet 04/17/25 [Rx] Follow up Appointment(s)/Referral(s): Jean-Pierre Lane MD [STAFF PHYSICIAN] - 04/26/25 4:00 pm (FOLLOW UP APPOINTMENT MADE WITH THE DEVICE CLINIC. Follow-up with Dr. Batista in 4 weeks) Activity/Diet/Wound Care/Special Instructions: PATIENT EDUCATION MATERIAL Instructions following a heart rhythm device implant. 1. Keep dressing DRY for 5 DAYS. You may cover the area with Saran or Cling Wrap, prior to a shower. 2. The dressing will be removed in the Device Clinic at [facility]. Absorbable sutures were used to close the wound. 3. Avoid raising the left arm above the shoulder level. 4 week restriction 4. Avoid arm movements, like backscratching, rubbing the head, or pulling on a cord. 4 weeks restriction 5. Gentle range of motion movements of the shoulder, closest to the incision should be performed to avoid a frozen shoulder. (Pendulum exercises of the shoulder) 6. The opposite arm may be used freely. 7. Avoid driving for 7 days. 8. Avoid activities such as golfing, swimming, weed whacking, lifting more than 10 pounds weight, bowling, gymnastics and weight training/lifting. (6 weeks restriction) 9. Activities such as wood chopping with an axe, pull-ups in the gymnasium, power lifting, arc-welding, being close to home induction cooktops will always be a problem. 10. Arm sling is only a reminder not to raise the arm above the head. You do not need to keep the arm completely immobilized. Your free to move the arm and use it and for normal activities. In case of any problems, please call [facility], Theresa Arteaga, @ [phone], Attention: Device Clinic Device clinic follow-up in 5 days Follow-up with primary block saw operator in 2-3 months Medication changes 1. Stop the following medications Amlodipine Metoprolol 2. New medications to be started Pravastatin 10 mg p.o. daily Carvedilol 12.5 mg twice daily Discharge Disposition: HOME SELF-CARE
== END 2025-04-18 14:08 | disposition home or self-care (01) ==
LOC: CATHEP 06:59 → 6NMEDSUR 13:56 → CATHEP 04-18 14:08
PROVIDERS: ATTEND Internal Medicine Clinical Cardiac Electrophysiology
DX: I42.0 Dilated cardiomyopathy (principal); I25.5 Ischemic cardiomyopathy; I11.0 Hypertensive heart disease with heart failure; I50.22 Chronic systolic (congestive) heart failure; I25.10 Atherosclerotic heart disease of native coronary artery without angina pectoris; I25.2 Old myocardial infarction; E78.5 Hyperlipidemia, unspecified; I45.10 Unspecified right bundle-branch block; M86.60 Other chronic osteomyelitis, unspecified site; Z79.82 Long term (current) use of aspirin; Z79.01 Long term (current) use of anticoagulants; Z79.899 Other long term (current) drug therapy; Z82.49 Family history of ischemic heart disease and other diseases of the circulatory system
CPT/HCPCS: 33249; 33233; 80048; 84443; 85025; 71046; C1769 ×2; C1882; C1898 ×2; C1730; C1887; C1892; C1777; J2250; J1644; J0690; J2003; J3010; J2795; Q9967; J3373